=== PATIENT | female | born 1940 | race Caucasian/White ===

== ENCOUNTER 2018-07-08 10:51 | Inpatient (IN) ==
--- NOTE | 2018-07-08 12:51 | ED ---
HPI General Chief Complaint: Fall Stated Complaint: fall Time Seen by Provider: 07/08/18 12:39 History of Present Illness HPI Narrative: This is a 77-year-old female with severe Lewy body dementia. She had a fall at home. She has very poor balance and gait as baseline. She was attempting to transfer and lost her balance and fell onto her left leg. Her says that her left leg was bent up beneath her. She did not strike her head. Symptom severity is mild to moderate. She cannot provide any history or review of symptoms herself. She is nonverbal. Duration is 1 hour. No alleviating factors. Symptoms are exacerbated by her severe dementia and gait imbalance Related Data Home Medications Medication Instructions Recorded Confirmed cyanocobalamin (vitamin B-12) 1,000 mcg PO DAILY 07/08/18 07/08/18 memantine [Namenda] 2.5 mg PO BID 07/08/18 07/08/18 Allergies Allergy/AdvReac Type Severity Reaction Status Date / Time No Known Allergies Allergy Verified 07/08/18 12:45 Review of Systems ROS Unobtainable ROS Unobtainable: unobtainable due to mental condition and unobtainable due to mental status PMFSH Medical History Medical History Atrial fibrillation (Acute) Breast cancer (Acute) COPD (chronic obstructive pulmonary disease) (Acute) History of hysterectomy (Acute) Lewy body dementia (Acute) Pacemaker (Acute) Surgical History Surgical History History of cardiac radiofrequency ablation (Acute) Social History Social History Substance History: No History of Abuse Second Hand Smoke Exposure: Yes Smoking Status: Current some day smoker Tobacco Type: Cigarettes How Often Do You Have a Drink Containing Alcohol: Monthly or less Recent Travel in [facility] within the Last 8 Weeks: No Recent Out of Country Travel within the Last 8 Weeks: No Exam Narrative Exam Narrative: GENERAL: Well-nourished, well-developed patient in no apparent distress. SKIN: Focused skin assessment reveals no rash and nodules. Skin is Warm and dry. HEAD: Atraumatic. Normocephalic. EYES: Pupils equal and round. No scleral icterus. No injection or drainage. ENT: No nasal bleeding or discharge. Mucous membranes pink and moist. NECK: Trachea midline. No JVD. No midline tenderness CARDIOVASCULAR: Regular rate and rhythm. No murmur appreciated. RESPIRATORY: No accessory muscle use. Clear to auscultation. Breath sounds equal bilaterally. GASTROINTESTINAL: Abdomen soft, non-tender, nondistended. Hepatic and splenic margins not palpable. MUSCULOSKELETAL: No obvious deformities. No clubbing. No cyanosis. No edema. Seems to have decent range of motion of leg joints. No obvious long bone tenderness. NEUROLOGICAL: Awake and alert. No obvious cranial nerve deficits. Impossible to accurately gauge motor strength or sensation given her limited participation. She is nonverbal. PSYCHIATRIC: Appropriate mood and affect; insight and judgment poor. Course Initial Documented Vital Signs Temperature 97.5 F L 07/08/18 11:04 Respiratory Rate 16 07/08/18 11:04 Blood Pressure 106/57 L 07/08/18 11:04 Pulse Oximetry 95 07/08/18 11:04 Last Documented Vital Signs Temperature 97.5 F L 07/08/18 11:04 Respiratory Rate 18 07/08/18 12:50 Blood Pressure 106/57 L 07/08/18 11:04 Pulse Oximetry 95 07/08/18 11:04 Medical Decision Making MDM Narrative Medical decision making narrative: This is a 77-year-old severely demented patient who fell onto her left leg. I have ordered imaging of her pelvis femur and tibia. X-ray review reveals a fracture of the left hip. I have ordered preop labs and chest x-ray. I reviewed the case with Dr. Herrera will be a senior telecommunications consultant. I have discussed it with the hospitalist who will admit. Of note, the reports that the patient gets very agitated after any type of narcotic and requests that at this time she not get any. Medical Screen Exam Complete: Yes Emergency Medical Condition: Yes Medical Records Medical records reviewed: Yes I reviewed the patient's medical records. Imaging Data Attestation: I personally reviewed and interpreted this imaging study as follows : My impression: Patient has a comminuted left intertrochanteric hip fracture. Tib-fib x-ray is normal and pelvis intact. Has a right hip replacement Radiologist's impression: Femur X-Ray 07/08/18 12:45 CONCLUSION: Comminuted and mildly displaced and mildly angulated intertrochanteric and proximal shaft fracture of the left femur. Tibia/Fibula X-Ray 07/08/18 12:45 CONCLUSION: Left tibia and fibula appear intact. Pelvis X-Ray 07/08/18 12:46 CONCLUSION: No evidence of pelvic fracture. Discharge Plan Discharge Disposition Patient Disposition: 30 Still Patient Discharge Details Diagnosis: Closed fracture of left hip Physicians Team ED Provider: Oz Zafar Primary Care Provider: UNKNOWN, Rxs /Orders / Referrals /Forms Prescriptions: No Action memantine [Namenda] 5 mg Tablet 2.5 mg PO BID RF: 0 cyanocobalamin (vitamin B-12) 1,000 mcg Capsule 1,000 mcg PO DAILY RF: 0 Status ED Status: With Doctor
--- NOTE | 2018-07-08 13:54 | XR ---
EXAM DATE: 07/08/2018 1:41 PM EST AGE/SEX: 77 years / Female INDICATIONS: Fall. CLINICAL DATA: This is the patient's initial encounter. Patient reports that signs and symptoms have been present for 2 days and indicates a pain score of 10/10. MEDICAL/SURGICAL HISTORY: . Patient has Alzeimers/Parkinsons combination. Patient is contracte d and is wheelchair bound. She fell yesterday at home. . Right hip replacement. COMPARISON: [facility] [place] AP [place]V, 07/08[place]. . FINDINGS: There is a comminuted intertrochanteric and proximal shaft fracture of the proximal left femur with m ild medial angulation deformity. The fracture appears oblique and/or spiral. There is up to 1 cm of l ateral displacement. The femoral head is intact. Mild osteoarthritis. No subluxation. CONCLUSION: Comminuted and mildly displaced and mildly angulated intertrochanteric and proximal shaft fracture of the left femur. Electronically signed by: Sean Calderon MD 07/08/2018 1:53 PM EST
--- NOTE | 2018-07-08 13:56 | XR ---
EXAM DATE: 07/08/2018 1:44 PM EST AGE/SEX: 77 years / Female INDICATIONS: Fall. CLINICAL DATA: This is the patient's initial encounter. Patient reports that signs and symptoms have been present for 2 days and indicates a pain score of 10/10. MEDICAL/SURGICAL HISTORY: . Patient has Alzeimers/Parkinsons combination. Patient is contracte d and is wheelchair bound. She fell yesterday at home. . Right hip replacement. [place] [facility] [place]. . FINDINGS: Examination of the pelvis demonstrates no evidence of fracture or dislocation. Bony mineralization i s normal. There is no widening of the sacroiliac joints. No foreign body is identified. CONCLUSION: No evidence of pelvic fracture. Electronically signed by: Sean Calderon MD 07/08/2018 1:55 PM EST
--- NOTE | 2018-07-08 13:57 | XR ---
EXAM DATE: 07/08/2018 1:48 PM EST AGE/SEX: 77 years / Female INDICATIONS: Fall. CLINICAL DATA: This is the patient's initial encounter. Patient reports that signs and symptoms have been present for 2 days and indicates a pain score of 10/10. MEDICAL/SURGICAL HISTORY: . Patient has Alzeimers/Parkinsons combination. Patient is contracte d and is wheelchair bound. She fell yesterday at home. . Right hip replacement. COMPARISON: [facility], FEMUR LEFT 2V, 07/08/2018. . FINDINGS: Bony structures are intact and in normal alignment. Osseous density is normal. Soft tissues are unre markable. No radiopaque foreign bodies seen. CONCLUSION: Left tibia and fibula appear intact. Electronically signed by: Sean Calderon MD 07/08/2018 1:55 PM EST
[2018-07-08 15:06] LABS: Baso % (Auto) 0.3 % (0.0-2.0); Eos % (Auto) 0.1 % (0.0-4.0); Hematocrit 29.5 % (35.0-46.0); Hemoglobin 9.9 gm/dL (11.6-15.3); Lymph # (Auto) 1.7 th/mm3 (1.0-4.8); Lymph % (Auto) 11.1 % (9.0-44.0); Mean Corpuscular HGB Conc 33.6 % (32.0-36.0); Mean Corpuscular Hemoglobin 29.5 pg (27.0-34.0); Mean Platelet Volume 8.9 fL (7.0-11.0); Mono # (Auto) 2.2 th/mm3 (0.0-0.9); Mono % (Auto) 14.4 % (0.0-8.0); Neut # (Auto) 11.2 th/mm3 (1.8-7.7); Neut % (Auto) 74.1 % (16.0-70.0); Platelet Count 256 th/mm3 (150-450); Red Blood Count 3.36 mil/mm3 (4.00-5.30); Red Cell Distribution Width 14.8 % (11.6-17.2); White Blood Count 15.2 th/mm3 (4.0-11.0)
[2018-07-08] MEDS ORDERED: Bisacodyl 10 MG Supp RECTAL PRN (15:21)
--- NOTE | 2018-07-08 15:27 | XR ---
EXAM DATE: 07/08/2018 3:00 PM EST AGE/SEX: 77 years / Female INDICATIONS: Pre op chest. CLINICAL DATA: This is the patient's initial encounter. Patient reports that signs and symptoms have been present for 2 days and indicates a pain score of 10/10. MEDICAL/SURGICAL HISTORY: . Patient fell yesterday, has fracture to left hip. . Right hip repl acement COMPARISON: . FINDINGS: Mild, age indeterminate parenchymal opacities seen in the right upper lobe. Lungs otherwise appear cl ear. No pleural effusion demonstrated. No pneumothorax. Heart size within normal limits. Cardiac pacer is present. CONCLUSION: Mild right upper lobe opacification, probably scarring although a mild pneumonic infiltrate is not ex cludable. I don't have any pertinent priors. No other evidence of acute cardiopulmonary disease. Electronically signed by: Sean Calderon MD 07/08/2018 3:25 PM EST
--- NOTE | 2018-07-08 15:32 | P.HP ---
History of Present Illness Primary Care Physician: UNKNOWN Chief Complaint: fall History of Present Illness: This is a 77-year-old female with severe Lewy body dementia. She had a fall at home. She has very poor balance and gait as baseline. She was attempting to transfer and lost her balance and fell onto her left leg. Her says that her left leg was bent up beneath her. She did not strike her head. Symptom severity is mild to moderate. She cannot provide any history or review of symptoms herself. She is nonverbal. Duration is 1 hour. No alleviating factors. Symptoms are exacerbated by her severe dementia and gait imbalance. Inpatient Certification: I certify that the inpatient services were ordered in accordance with Medicare regulations governing the order. This includes certification that hospital inpatient services are reasonable and necessary and in the case of services not specified as inpatient-only under 42 CFR 419.22(n), that they are appropriately provided as inpatient services in accordance to with the 2-midnight benchmark under 43 CFR 412.3(e) Estimated Total Length of Stay (Days): 3 Plans for Post Hospital Care: SNF Review of Systems All other systems reviewed negative except as stated in HPI PMFSH - History History Provided By: Family Member - Medical History Medical History: Medical History (Last Reviewed 07/08/18 @ 15:30 by Sailaja Narayan MD) Atrial fibrillation Breast cancer COPD (chronic obstructive pulmonary disease) History of hysterectomy Lewy body dementia Pacemaker - Surgical History Surgical History: Surgical History (Last Reviewed 07/08/18 @ 15:30 by Sailaja Narayan MD) History of cardiac radiofrequency ablation - Family History Family History: Family History (Last Updated 07/08/18 @ 15:52 by Sailaja Narayan MD) Father HTN (hypertension) Mother HTN (hypertension) - Social History I have reviewed the patient's Social History: Yes - Tobacco History Second Hand Smoke Exposure: Yes Tobacco Use In Past 30 Days: Yes Smoking Status: Current some day smoker Tobacco Type: Cigarettes - Alcohol History How Often Do You Have a Drink Containing Alcohol: Monthly or less - Substance Use History Substance History: No History of Abuse - Travel History Recent Travel in the [place] Within the Last 8 Weeks: No Recent Travel Out of the Country Within the Last 8 Weeks: No - Immunization History Tetanus Immunization: >5 Years Medications and Allergies Active Medications: Active Medications Acetaminophen (Tylenol) 650 mg PO Q4H PRN PRN Reason: Temp > 100.4 Al Hydroxide/Mg Hydroxide (Milk Of Magnesia Liq) 30 ml PO Q12H PRN PRN Reason: Mild Constipation Bisacodyl (Dulcolax Supp) 10 mg RECTAL DAILY PRN PRN Reason: SEVERE CONSITIPATION Sodium Chloride (Ns Inj) 1,000 mls @ 70 mls/hr IV.CONT .[id number] HELEN Lactulose (Lactulose Liq) 30 ml PO DAILY PRN PRN Reason: SEVERE CONSITIPATION Ondansetron HCl (Zofran Inj) 4 mg IV.PUSH Q6H PRN PRN Reason: NAUSEA OR VOMITING Senna/Docusate Sodium (Alejandra-Colace) 1 tab PO BID HELEN Sennosides (Senokot) 17.2 mg PO Q12H PRN PRN Reason: Moderate Constipation Allergies Allergy/AdvReac Type Severity Reaction Status Date / Time No Known Allergies Allergy Verified 07/08/18 12:45 Home Medications Medication Instructions Recorded Confirmed Type cyanocobalamin (vitamin B-12) 1,000 mcg PO DAILY 07/08/18 07/08/18 History memantine [Namenda] 2.5 mg PO BID 07/08/18 07/08/18 History Exam Vital signs: Vital Signs 07/08/18 11:04 07/08/18 12:50 Temperature 97.5 F L Respiratory Rate 16 18 Blood Pressure 106/57 L Pulse Oximetry 95 Intake & Output 07/07/18 07/08/18 07/08/18 18:59 06:59 18:59 Weight 52.163 kg Narrative: GENERAL: 77-year-old severely demented patient appears in nad. SKIN: Warm and dry. HEAD: Atraumatic. Normocephalic. EYES: Pupils equal and round. No scleral icterus. No injection or drainage. ENT: No nasal bleeding or discharge. Mucous membranes pink and moist. NECK: Trachea midline. No JVD. CARDIOVASCULAR: Regular rate and rhythm. RESPIRATORY: No accessory muscle use. Clear to auscultation. Breath sounds equal bilaterally. GASTROINTESTINAL: Abdomen soft, non-tender, nondistended. Hepatic and splenic margins not palpable. MUSCULOSKELETAL: Extremities without clubbing, cyanosis, or edema. No obvious deformities. NEUROLOGICAL: Awake and alert. No obvious cranial nerve deficits. Not following commands due to severe dementia. She is nonverbal. At baseline. PSYCHIATRIC: Appropriate mood and affect; insight and judgment normal. Results - Labs CBC & Chem 7: 07/08/18 14:37 07/08/18 15:33 Labs: Laboratory Results - last 24 hr 07/08/18 14:37 WBC 15.2 H RBC 3.36 L Hgb 9.9 L Hct 29.5 L MCV 88.0 MCH 29.5 MCHC 33.6 RDW 14.8 Plt Count 256 MPV 8.9 Prelim Diff (Auto) Slide review pending Neut % (Auto) 74.1 H Lymph % (Auto) 11.1 [place] % (Auto) 14.4 H Eos % (Auto) 0.1 Baso % (Auto) 0.3 Neut # (Auto) 11.2 H Lymph # (Auto) 1.7 [place] # (Auto) 2.2 H Eos # (Auto) 0.0 Baso # (Auto) 0.0 Differential Comment . - Imaging Impressions Femur X-Ray 07/08/18 12:45 CONCLUSION: Comminuted and mildly displaced and mildly angulated intertrochanteric and proximal shaft fracture of the left femur. Tibia/Fibula X-Ray 07/08/18 12:45 CONCLUSION: Left tibia and fibula appear intact. Pelvis X-Ray 07/08/18 12:46 CONCLUSION: No evidence of pelvic fracture. Caprini VTE Risk Assessment Caprini VTE Risk Assessment: Moderate/High Risk (score >= 2) Caprini Risk Assessment Model: Point Value = 1 Point Value = 2 Point Value = 3 Point Value = 5 Age 41-60 Minor surgery BMI > 25 kg/m2 Swollen legs Varicose veins or History of unexplained or recurrent spontaneous Oral contraceptives or hormone replacement Sepsis (< 1 month) Serious lung disease, including pneumonia (< 1 month) Abnormal pulmonary function Acute myocardial infarction Congestive heart failure (< 1 month) History of inflammatory bowel disease Medical patient at bed rest Age 61-74 Arthroscopic surgery Major open surgery (> 45 min) Laparoscopic surgery (> 45 min) Malignancy Confined to bed (> 72 hours) Immobilizing plaster cast Central venous access Age >= 75 History of VTE Family history of VTE Factor V Leiden Prothrombin [id number] Lupus anticoagulant Anticardiolipin antibodies Elevated serum homocysteine Heparin-induced thrombocytopenia Other congenital or acquired thrombophilia Stroke (< 1 month) Elective arthroplasty Hip, pelvis, or leg fracture Acute spinal cord injury (< 1 month) Prophylaxis Regimen: Total Risk Factor Score Risk Level Prophylaxis Regimen 0-1 Low Early ambulation 2 Moderate Order ONE of the following: *Sequential Compression Device (SCD) *Heparin 5000 units SQ BID 3-4 Higher Order ONE of the following medications: *Heparin 5000 units SQ TID *Enoxaparin/Lovenox 40 mg SQ daily (WT < 150 kg, CrCl > 30 mL/min) *Enoxaparin/Lovenox 30 mg SQ daily (WT < 150 kg, CrCl > 10-29 mL/min) *Enoxaparin/Lovenox 30 mg SQ BID (WT < 150 kg, CrCl > 30 mL/min) AND/OR *Sequential Compression Device (SCD) 5 or more Highest Order ONE of the following medications: *Heparin 5000 units SQ TID (Preferred with Epidurals) *Enoxaparin/Lovenox 40 mg SQ daily (WT < 150 kg, CrCl > 30 mL/min) *Enoxaparin/Lovenox 30 mg SQ daily (WT < 150 kg, CrCl > 10-29 mL/min) *Enoxaparin/Lovenox 30 mg SQ BID (WT < 150 kg, CrCl > 30 mL/min) AND *Sequential Compression Device (SCD) Assessment and Plan - Plan This is a 77-year-old severely demented patient who fell onto her left leg. Patient has a comminuted left intertrochanteric hip fracture. Tib-fib x-ray is normal and pelvis intact. Has a right hip replacement Ortho consulted, Dr. Herrera plan for surgery in AM , keep NPO after midnight Of note, the reports that the patient gets very agitated after any type of narcotic and requests that at this time she not get any. Left hip closed fracture Imaging reviewed. Comminuted left intertrochanteric hip fracture. Tib-fib x- ray is normal and pelvis intact. Has a right hip replacement Ortho consulted, Dr. Herrera plans for surgery in AM , keep NPO after midnight Tylenol for pain as per patient gets agitated with narcotic use Afib had ablation and has a PM. Will check PM as per needs to be checked in Nov Restart home emds as appropriate Chronic med problems stable DVT ppx scd/teds , chemical ppx per surgeon Discussed Condition With: patient. nurse, ED physicin Dr Zafar
[2018-07-08] MEDS: Sod Chloride 0.9% Inj 1,000 ML IV.CONT SCH (15:48)
[2018-07-08 15:54] LABS: Platelet Estimate Normal (Normal); Platelet Morphology Normal (Normal)
[2018-07-08 16:00] LABS: Activated Partial Thrombo Time 28.4 sec (23.4-31.7); INR 1.1 Ratio; Prothrombin Time 10.8 sec (9.8-11.6)
[2018-07-08 16:08] LABS: Calcium 8.1 mg/dL (8.5-10.1); Carbon Dioxide 24.5 meq/L (21.0-32.0); Potassium 4.1 meq/L (3.5-5.1)
--- NOTE | 2018-07-08 16:50 | P.CONOP ---
[facility] Orthopedics Consult Note - [facility] Consult date: 07/08/18 Consult reason: fracture Chief complaint: left hip fracture Narrative: 77-year-old female with severe Lewy body dementia. She had a fall at home. She has very poor balance and gait at baseline. She was attempting to transfer and lost her balance and fell onto her left leg. Her says that her left leg was bent up beneath her. She did not strike her head. Symptom severity is mild to moderate. She cannot provide any history or review of symptoms herself. She is nonverbal. Duration is 1 hour. No alleviating factors. Symptoms are exacerbated by her severe dementia and gait imbalance. Review of Systems unobtainable due to mental status PMFSH - History History Provided By: Family Member - Medical History Medical History: Medical History (Last Reviewed 07/08/18 @ 15:30 by Sailaja Narayan MD) Atrial fibrillation Breast cancer COPD (chronic obstructive pulmonary disease) History of hysterectomy Lewy body dementia Pacemaker - Surgical History Surgical History: Surgical History (Last Reviewed 07/08/18 @ 15:30 by Sailaja Narayan MD) History of cardiac radiofrequency ablation - Family History Family History: Family History (Last Updated 07/08/18 @ 15:52 by Sailaja Narayan MD) Father HTN (hypertension) Mother HTN (hypertension) - Tobacco History Second Hand Smoke Exposure: Yes Tobacco Use In Past 30 Days: Yes Smoking Status: Current some day smoker Tobacco Type: Cigarettes - Alcohol History How Often Do You Have a Drink Containing Alcohol: Monthly or less - Substance Use History Substance History: No History of Abuse - Travel History Recent Travel in the [place] Within the Last 8 Weeks: No Recent Travel Out of the Country Within the Last 8 Weeks: No - Immunization History Tetanus Immunization: >5 Years Medications and Allergies Active Medications: Active Medications Acetaminophen (Tylenol) 650 mg PO Q4H PRN PRN Reason: Temp > 100.4 Al Hydroxide/Mg Hydroxide (Milk Of Magnesia Liq) 30 ml PO Q12H PRN PRN Reason: Mild Constipation Bisacodyl (Dulcolax Supp) 10 mg RECTAL DAILY PRN PRN Reason: SEVERE CONSITIPATION Cyanocobalamin (Vitamin B12) 1,000 mcg PO DAILY HELEN Sodium Chloride (Ns Inj) 1,000 mls @ 70 mls/hr IV.CONT .[id number] [facility] Last Admin: 07/08/18 15:48 Dose: 70 mls/hr Lactulose (Lactulose Liq) 30 ml PO DAILY PRN PRN Reason: SEVERE CONSITIPATION Memantine (Namenda) 2.5 mg PO BID HELEN Ondansetron HCl (Zofran Inj) 4 mg IV.PUSH Q6H PRN PRN Reason: NAUSEA OR VOMITING Senna/Docusate Sodium (Alejandra-Colace) 1 tab PO BID HELEN Sennosides (Senokot) 17.2 mg PO Q12H PRN PRN Reason: Moderate Constipation Allergies Allergy/AdvReac Type Severity Reaction Status Date / Time No Known Allergies Allergy Verified 07/08/18 12:45 Home Medications Medication Instructions Recorded Confirmed Type cyanocobalamin (vitamin B-12) 1,000 mcg PO DAILY 07/08/18 07/08/18 History memantine [Namenda] 2.5 mg PO BID 07/08/18 07/08/18 History Exam Vital signs: Vital Signs 07/08/18 11:04 07/08/18 12:50 07/08/18 15:00 Temperature 97.5 F L Pulse Rate 91 H 85 Respiratory Rate 16 18 18 Blood Pressure 106/57 L 130/60 Pulse Oximetry 95 97 98 Intake & Output 07/07/18 07/08/18 07/08/18 18:59 06:59 18:59 Weight 52.163 kg Narrative: Awake, alert, nonverbal at baseline Normocephalic Pupils equal No JVD Moist mucous membranes Soft nontender appearing abdomen Nonlabored respirations Regular rate Left lower extremity: Positive logroll. Unable to assess hip and knee range of motion due to pain. Possible left knee contracture. Patient does not participate with physical exam but does appear to spontaneously move her lower extremities. Bilateral upper extremities and right lower extremity: No visible deformities or appreciable tenderness. Patient allows gentle passive range of motion. Brisk cap refill No rash Nonverbal baseline Results - Labs Result Diagrams: 07/09/18 05:21 07/09/18 05:21 Labs: Laboratory Results - last 24 hr 07/08/18 07/08/18 07/08/18 14:37 15:33 15:33 WBC 15.2 H RBC 3.36 L Hgb 9.9 L Hct 29.5 L MCV 88.0 MCH 29.5 MCHC 33.6 RDW 14.8 Plt Count 256 MPV 8.9 Prelim Diff (Auto) Slide review pending Neut % (Auto) 74.1 H Lymph % (Auto) 11.1 [place] % (Auto) 14.4 H Eos % (Auto) 0.1 Baso % (Auto) 0.3 Neut # (Auto) 11.2 H Lymph # (Auto) 1.7 [place] # (Auto) 2.2 H Eos # (Auto) 0.0 Baso # (Auto) 0.0 WBC Differential . Diff Scan Auto diff confirmed Differential Comment . Platelet Estimate Normal Platelet Morphology Normal PT 10.8 INR 1.1 APTT 28.4 Sodium 143 Potassium 4.1 Chloride 107 Carbon Dioxide 24.5 Anion Gap 12 BUN 43 H Creatinine 1.82 H Estimated GFR 27 L Random Glucose 125 H Calcium 8.1 L - Diagnostic results Imaging: Impressions Femur X-Ray 07/08/18 12:45 CONCLUSION: Comminuted and mildly displaced and mildly angulated intertrochanteric and proximal shaft fracture of the left femur. Tibia/Fibula X-Ray 07/08/18 12:45 CONCLUSION: Left tibia and fibula appear intact. Pelvis X-Ray 07/08/18 12:46 CONCLUSION: No evidence of pelvic fracture. Chest X-Ray 07/08/18 14:09 CONCLUSION: Mild right upper lobe opacification, probably scarring although a mild pneumonic infiltrate is not excludable. I don't have any pertinent priors. No other evidence of acute cardiopulmonary disease. Assessment and Plan - Assessment and Plan 77yo F with h/o Lewy body dementia and nonverbal at baseline, with closed left intertrochanteric femur fracture Radiographs reviewed by myself. Patient with closed left intertrochanteric femur fracture. Would recommend operative intervention in the form of intramedullary nail of the left femur. Risks including but not limited to: infection, nonunion or malunion, hardware malposition or failure, persistent hip pain and/or stiffness, neurovascular injury, possible need for further surgery, and other unforeseen complications. Patient has been NPO at midnight with plan for surgery today.
[2018-07-08] MEDS ORDERED: Metoprolol Tartrate 25 MG Tablet PO SCH (21:41)
[2018-07-08] MEDS ORDERED: Chlorhexidine Gluconate 2% 1 Pack (2 Cloths) TOPICAL SCH (21:41)
[2018-07-08] MEDS ORDERED: Sodium Chlor 0.9% Inj 500 ML IV.SIG SCH (22:00)
[2018-07-08] MEDS: Senna/Docusate Sodium 8.6/50 MG Tablet PO SCH (23:05)
[2018-07-09 06:18] LABS: Baso # (Auto) 0.1 th/mm3 (0.0-0.2); Baso % (Auto) 0.5 % (0.0-2.0); Hematocrit 25.9 % (35.0-46.0); Lymph # (Auto) 1.2 th/mm3 (1.0-4.8); Lymph % (Auto) 10.6 % (9.0-44.0); Mean Corpuscular HGB Conc 34.8 % (32.0-36.0); Mean Corpuscular Hemoglobin 29.9 pg (27.0-34.0); Mean Corpuscular Volume 85.7 fL (80.0-100.0); Mean Platelet Volume 9.2 fL (7.0-11.0); Mono # (Auto) 1.4 th/mm3 (0.0-0.9); Mono % (Auto) 12.4 % (0.0-8.0); Neut # (Auto) 8.3 th/mm3 (1.8-7.7); Neut % (Auto) 76.5 % (16.0-70.0); Platelet Count 230 th/mm3 (150-450); Red Blood Count 3.02 mil/mm3 (4.00-5.30); Red Cell Distribution Width 14.1 % (11.6-17.2); White Blood Count 10.9 th/mm3 (4.0-11.0)
[2018-07-09 06:43] LABS: Carbon Dioxide 26.1 meq/L (21.0-32.0); Potassium 4.1 meq/L (3.5-5.1)
--- NOTE | 2018-07-09 07:10 | ECG ---
Date Performed: 07/08/2018 Time Performed: 21:59:47 PTAGE: 77 years EKG: ELECTRONIC ATRIAL PACEMAKER MINIMAL ST DEPRESSION ABNORMAL RHYTHM ECG NO PREVIOUS TRACING DOCTOR: Jamie Wilburn Interpretating Date/Time 07/09/2018 07:08:45
[2018-07-09] MEDS: Sod Chloride 0.9% Inj 1,000 ML IV.CONT SCH (08:23)
--- NOTE | 2018-07-09 08:43 | P.PNIM ---
Subjective Interval history: Follow-up visit left femur fracture, plan for OR today. Patient seen and examined today. Family member at the bedside. Patient is awake and alert, nonverbal. Moves bilateral upper extremities spontaneously, left knee bended/ contracted?. Facial grimacing to tactile stimulation. As per family member, patient has Lewy body dementia and usually does not really respond to other people. Physical Exam Vital signs: Vital Signs 07/08/18 11:04 07/08/18 12:50 07/08/18 15:00 Temperature 97.5 F L Pulse Rate 91 H 85 Respiratory Rate 16 18 18 Blood Pressure 106/57 L 130/60 Pulse Oximetry 95 97 98 07/08/18 16:35 07/08/18 20:00 07/08/18 23:39 Temperature 98.3 F 98.2 F 98.3 F Pulse Rate 78 86 88 Respiratory Rate 16 20 22 Blood Pressure 147/64 H 115/65 132/62 Pulse Oximetry 99 95 96 07/09/18 01:30 07/09/18 04:05 Temperature 98.9 F Pulse Rate 85 Respiratory Rate 17 18 Blood Pressure 93/54 L Pulse Oximetry 95 Intake & Output 07/08/18 07/09/18 07/09/18 18:59 06:59 18:59 Intake Total 1050 / 1050 Output Total 375 / 375 Balance 675 / 675 Weight 52.6 kg 51.7 kg Intake: IV 1000 / 1000 NS Inj 1,000 ML @ 70 mls/hr IV. 1000 / 1000 CONT .[id number] [facility] Rx#:[id number] Oral 50 / 50 Output: Urine Amount (Catheter) 375 / 375 Indwelling Urethral Catheter 375 / 375 Other: Weight On Admission 52.6 kg Narrative: GENERAL: This is a well-nourished, well-developed patient, in no apparent distress. SKIN: Warm and dry. HEENT: Normocephalic. Nose without bleeding. Airway patent. NECK: Trachea midline. CARDIOVASCULAR: Regular rate and rhythm without murmurs, gallops, or rubs. RESPIRATORY: Diminished bases. No wheezes, rales, or rhonchi. GASTROINTESTINAL: Abdomen soft, non-tender, nondistended. Bowel Sounds normoactive x4. MUSCULOSKELETAL: Extremities without clubbing, cyanosis, or edema. Left knee bended, ? contracture. NEUROLOGICAL: Awake and alert. Nonverbal. Moves bilateral upper extremities spontaneously. - Urinary Catheter Management Indwelling Urethral Catheter Cath placed during this visit: yes Reason for continuing: Acute urinary retention Insertion date: 07/08/18 Insertion time: 15:58 Results - Labs CBC & Chem 7: 07/09/18 05:21 07/09/18 05:21 Laboratory Results - last 24 hr 07/08/18 07/08/18 07/08/18 14:37 15:33 15:33 WBC 15.2 H RBC 3.36 L Hgb 9.9 L Hct 29.5 L MCV 88.0 MCH 29.5 MCHC 33.6 RDW 14.8 Plt Count 256 MPV 8.9 Prelim Diff (Auto) Slide review pending Neut % (Auto) 74.1 H Lymph % (Auto) 11.1 Wagoner % (Auto) 14.4 H Eos % (Auto) 0.1 Baso % (Auto) 0.3 Neut # (Auto) 11.2 H Lymph # (Auto) 1.7 Wagoner # (Auto) 2.2 H Eos # (Auto) 0.0 Baso # (Auto) 0.0 WBC Differential . Diff Scan Auto diff confirmed Differential Comment . Platelet Estimate Normal Platelet Morphology Normal PT 10.8 INR 1.1 APTT 28.4 Sodium 143 Potassium 4.1 Chloride 107 Carbon Dioxide 24.5 Anion Gap 12 BUN 43 H Creatinine 1.82 H Estimated GFR 27 L Random Glucose 125 H Calcium 8.1 L 07/09/18 07/09/18 05:21 05:21 WBC 10.9 RBC 3.02 L Hgb 9.0 L Hct 25.9 L MCV 85.7 MCH 29.9 MCHC 34.8 RDW 14.1 Plt Count 230 MPV 9.2 Prelim Diff (Auto) Neut % (Auto) 76.5 H Lymph % (Auto) 10.6 Wagoner % (Auto) 12.4 H Eos % (Auto) 0.0 Baso % (Auto) 0.5 Neut # (Auto) 8.3 H Lymph # (Auto) 1.2 Wagoner # (Auto) 1.4 H Eos # (Auto) 0.0 Baso # (Auto) 0.1 WBC Differential . Diff Scan Differential Comment Auto diff final Platelet Estimate Platelet Morphology PT INR APTT Sodium 146 H Potassium 4.1 Chloride 112 H Carbon Dioxide 26.1 Anion Gap 8 BUN 42 H Creatinine 1.20 H Estimated GFR 43 L Random Glucose 116 H Calcium 8.0 L - Imaging Impressions Femur X-Ray 07/08/18 12:45 CONCLUSION: Comminuted and mildly displaced and mildly angulated intertrochanteric and proximal shaft fracture of the left femur. Tibia/Fibula X-Ray 07/08/18 12:45 CONCLUSION: Left tibia and fibula appear intact. Pelvis X-Ray 07/08/18 12:46 CONCLUSION: No evidence of pelvic fracture. Chest X-Ray 07/08/18 14:09 CONCLUSION: Mild right upper lobe opacification, probably scarring although a mild pneumonic infiltrate is not excludable. I don't have any pertinent priors. No other evidence of acute cardiopulmonary disease. Assessment and Plan - Plan Patient is a 77-year-old female with Lewy body dementia status post fall at home. Status post fall Left femur fracture -comminuted left intertrochanteric hip fracture. Tib-fib x-ray is normal and pelvis intact. Has a right hip replacement -Orthopedic surgeon consulted, Dr. Herrera plan for surgery today. -Tylenol for pain -PT post op. Possible rehab placement Afib had ablation, PPM -per needs to be checked in Nov Lewy body dementia -Continue with vitamin B12, Namenda 2.5 twice daily DVT Prop per surgery post op Code Status: Full Code Discussed Condition With: Patient, , nursing Discharge Planning: Plan to DC to SNF/Rehab when cleared by Ortho.
[2018-07-09] MEDS: Senna/Docusate Sodium 8.6/50 MG Tablet PO SCH ×2 (09:23→20:05)
[2018-07-09] MEDS ORDERED: Lidocaine PF 1% Inj 5 ML Syringe OTHER ONE (10:26)
[2018-07-09] MEDS ORDERED: Phenylephrine/NS 1000 MCG/10ML Syringe IV.PUSH ONE (10:26)
[2018-07-09] MEDS ORDERED: ceFAZolin 1 GM Premix Inj 1 GM/50 ML FROZ.PIGGY IV.SIG ONE (10:37)
[2018-07-09] MEDS ORDERED: Bupivacaine/Epinephrine 0.5% Inj 50 ML Vial ONE (11:38)
[2018-07-09] MEDS ORDERED: Post-op Orders (for Pharmacy) OTHER STA (11:42)
--- NOTE | 2018-07-09 11:49 | P.OP ---
Date of procedure: 07/09/18 Procedure: Intramedullary nail left subtrochanteric femur fracture Implants: Synthes TFN 12 mm diameter nail Anesthesia: REBECCA Surgeon: Lindsey Herrera MD Form Setter Helper: Damian Brody Estimated blood loss (mL): 100 Pathology: none sent Operation and Findings: Indications for procedure: 77-year-old female who sustained a trip and fall and sustained a closed left peritrochanteric/subtrochanteric femur fracture. Recommendation for operative intervention in the form of intramedullary nail of her left femur. Risks, benefits, alternatives were discussed with the patient and her . At this time the patient and her have both consented to this procedure. Form Setter Helper: Damian Brody PA-C The surgical procedure was assisted by physician surgery assistant. My P.A. presence was necessary throughout this case for the manipulation and positioning of the surgical extremity. My P.A. was assisting me throughout the duration of this procedure. The skill set of a physician surgery assistant was medically necessary to complete this procedure. During the surgical case the surgical services asst was working at the back table and the physician surgery assistant was directly assisting me. Description of procedure: Patient was brought back to the operating room where general anesthesia then ensued. Patient was then carefully positioned supine on the operating room fracture table with all bony promises well-padded. Patient was prepped and draped in standard sterile fashion. Preoperative antibiotics were given within 1 hour of incision. A timeout was performed to identify the correct patient, side, site and procedure to be performed. The fracture was reduced with the use of the table through traction and rotation. A small approximately 1-2 inch incision was made just proximal and posterior to the tip of the greater trochanter. Sharp dissection was made through the skin, subcutaneous tissue and fascia. A guidewire was placed into the tip of the greater troches on AP and lateral radiographs and advanced to the lesser trochanteric region. An opening reamer was then placed over this guidewire and advanced to the lesser trochanteric region to allow access to the femoral canal. A ball-tipped guidewire was then placed into the tip of the greater trochanter past the fracture site and into the distal femur. This was subsequently measured and up reamed to 13.5 mm. A 12.5 mm TFN nail was then placed over the ball-tipped guidewire and advanced past the fracture site into the distal femur. This was advanced into appropriate position on AP and lateral radiographs. The ball-tipped guidewire was then removed. A small incision was then made around the proximal aspect of the lateral femur to allow the triple sleeve to be placed down for the proximal locking blade. Sharp dissection was made through the skin, subcutaneous tissue and fascia. The guide sleeves were placed down to the lateral cortex and a guidewire was placed into the femoral neck and into the femoral head in a center center position. This was subsequently measured, drilled and an appropriate length locking blade placed. The proximal locking screw was tightened down and backed off a quarter of a turn to allow for appropriate compression. 2 distal locking screws were then placed with the use of perfect lumbee technique. Small incisions were made through the skin, subcutaneous tissue and fascia. These were then drilled, measured and appropriately length locking screws placed. The insertion handle was removed. Final radiographs demonstrate the fracture was appropriately reduced and hardware in good position. The incisions were then irrigated with normal saline laden with gentamicin. The deep tissue was closed with Vicryl sutures and the skin closed with keeley. Sterile dressings were applied. Patient was then carefully positioned back supine on her hospital bed. Patient was awoken from general anesthesia without complication. Disposition: Patient will be partial weightbearing 50% to the left lower extremity.
--- NOTE | 2018-07-09 15:04 | XR ---
EXAM DATE: 07/09/2018 3:02 PM EST AGE/SEX: 77 years / Female INDICATIONS: Left troch nail. CLINICAL DATA: This is the patient's initial encounter. Patient reports that signs and symptoms have been present for 1 day and indicates a pain score of Nonresponsive. MEDICAL/SURGICAL HISTORY: Non-responsive. Non-responsive. [place] [facility] [place]. . FINDINGS: There is maya fixation of the left femur across an intratrochanteric fracture. Near-anatomic alignment . No complications identified. CONCLUSION: Fixation left intertrochanteric fracture. Electronically signed by: Contreras Lee MD 07/09/2018 3:03 PM EST
[2018-07-09] MEDS: ceFAZolin 1 GM Premix Inj 1 GM/50 ML FROZ.PIGGY IV.SIG SCH (17:43)
[2018-07-10] MEDS: ceFAZolin 1 GM Premix Inj 1 GM/50 ML FROZ.PIGGY IV.SIG SCH ×3 (02:31→18:01)
--- NOTE | 2018-07-10 06:49 | P.PNOP ---
Subjective Interval history: Patient resting comfortably. Physical Exam Vital signs: Vital Signs 07/09/18 08:00 07/09/18 12:00 07/09/18 12:15 Temperature 98.3 F 97.5 F L Pulse Rate 94 H 84 82 Respiratory Rate 17 16 16 Blood Pressure 148/54 H 123/60 127/60 Pulse Oximetry 93 L 96 94 L 07/09/18 12:30 07/09/18 12:45 07/09/18 14:00 Temperature 97.3 F L Pulse Rate 82 82 84 Respiratory Rate 16 16 16 Blood Pressure 122/58 L 121/58 L 110/53 L Pulse Oximetry 94 L 94 L 95 07/09/18 16:00 07/09/18 19:12 07/09/18 23:53 Temperature 97.9 F 98.9 F 99.2 F Pulse Rate 85 86 89 Respiratory Rate 18 21 20 Blood Pressure 145/60 H 153/76 H 103/53 L Pulse Oximetry 96 96 95 07/10/18 03:39 Temperature 99.5 F Pulse Rate 85 Respiratory Rate 20 Blood Pressure 99/50 L Pulse Oximetry 99 Intake & Output 07/09/18 07/09/18 07/10/18 06:59 18:59 06:59 Intake Total 1050 / 1050 2620 / 2620 50 / 50 Output Total 375 / 375 350 / 350 250 / 250 Balance 675 / 675 2270 / 2270 -200 / -200 Weight 51.7 kg 53.7 kg Intake: IV 1000 / 1000 1600 / 1600 NS Inj 1,000 ML @ 70 mls/hr IV. 1000 / 1000 CONT .[id number] [facility] Rx#:[id number] LR 1000 mL Inj 1,000 ML @ 30 1000 / 1000 mls/hr IV.SIG .Q24H [facility] Rx#: [id number] NS Inj 500 ML @ 30 mls/hr IV. 500 / 500 SIG .Q10H [facility] Rx#:[id number] Ancef 1 GM Premix Inj 1 gm In 100 / 100 50 ml @ 100 mls/hr IV.SIG Q8H [facility] Rx#:[id number] Oral 50 / 50 120 / 120 50 / 50 Anesthesia Amount 650 / 650 Other 250 / 250 Output: Urine 100 / 100 Estimated Blood Loss 100 / 100 Urine Amount (Catheter) 375 / 375 150 / 150 250 / 250 Indwelling Urethral Catheter 375 / 375 150 / 150 250 / 250 Other: Other Intake Source Saline Solution Narrative: Sleeping but arousable. Left lower extremity: Dressings in place without significant drainage. Patient appears to be spontaneously moving although not cooperative with exam this morning. Brisk cap refill. Negative Homans. - Urinary Catheter Management Indwelling Urethral Catheter Cath placed during this visit: yes Reason for continuing: Acute urinary retention Insertion date: 07/08/18 Insertion time: 15:58 Results - Labs CBC & Chem 7: 07/09/18 05:21 07/09/18 05:21 Laboratory Results - last 24 hr 07/09/18 12:41 POC Glucose 130 H - Imaging Impressions Hip X-Ray 07/09/18 00:00 CONCLUSION: Fixation left intertrochanteric fracture. Assessment and Plan - Assessment and Plan 77yo F with h/o Lewy body dementia and nonverbal at baseline, with closed left subtrochanteric femur fracture, postop day 1 status post intramedullary nail of her left subtrochanteric femur fracture 1. PWB 50% LLE 2. PT for mobilization 3. Dressing changes to start POD#2 4. Patient will likely require rehab placement. May follow-up in my office in 2 weeks 5. Lovenox for DVT ppx while inpatient. May switch to Xarelto upon discharge for 3 weeks.
[2018-07-10] MEDS: Sod Chloride 0.9% Inj 1,000 ML IV.CONT SCH ×4 (08:40→22:41)
[2018-07-10] MEDS: Senna/Docusate Sodium 8.6/50 MG Tablet PO SCH ×2 (08:55→21:25)
[2018-07-10] MEDS: Acetaminophen 325 MG Tablet PO PRN (08:55)
[2018-07-10] MEDS: Enoxaparin Inj 40 MG/0.4 ML Syringe SQ SCH (08:57)
--- NOTE | 2018-07-10 12:38 | P.PNIM ---
Subjective Interval history: Follow-up visit left femur fracture, S/P Intramedullary nail left subtrochanteric femur fracture, Lewy body dementia. Patient seen and examined today. at the bedside. Patient is drowsy, arousable to tactile stimulation. Not been eating or drinking due to increase sleepiness as per . Possible post op anaesthesia effect. As per nursing, physical therapy has seen the patient but unable to do much because patient has been drowsy. We will continue to encourage increase in activity. This is been discussed with extensively. Physical Exam Vital signs: Vital Signs 07/09/18 12:45 07/09/18 14:00 07/09/18 16:00 Temperature 97.3 F L 97.9 F Pulse Rate 82 84 85 Respiratory Rate 16 16 18 Blood Pressure 121/58 L 110/53 L 145/60 H Pulse Oximetry 94 L 95 96 07/09/18 19:12 07/09/18 23:53 07/10/18 00:00 Temperature 98.9 F 99.2 F Pulse Rate 86 89 Respiratory Rate 21 20 17 Blood Pressure 153/76 H 103/53 L Pulse Oximetry 96 95 07/10/18 03:39 07/10/18 08:00 Temperature 99.5 F 99.3 F Pulse Rate 85 84 Respiratory Rate 20 18 Blood Pressure 99/50 L 103/75 Pulse Oximetry 99 91 L Intake & Output 07/09/18 07/10/18 07/10/18 18:59 06:59 18:59 Intake Total 2620 / 2620 1100 / 1100 1000 / 1000 Output Total 350 / 350 250 / 250 Balance 2270 / 2270 850 / 850 1000 / 1000 Weight 53.7 kg Intake: IV 1600 / 1600 1050 / 1050 1000 / 1000 NS Inj 1,000 ML @ 70 mls/hr IV. 1000 / 1000 1000 / 1000 CONT .[id number] [facility] Rx#:[id number] LR 1000 mL Inj 1,000 ML @ 30 1000 / 1000 mls/hr IV.SIG .Q24H [facility] Rx#: [id number] NS Inj 500 ML @ 30 mls/hr IV. 500 / 500 SIG .Q10H [facility] Rx#:[id number] Ancef 1 GM Premix Inj 1 gm In 100 / 100 50 / 50 50 ml @ 100 mls/hr IV.SIG Q8H [facility] Rx#:[id number] Oral 120 / 120 50 / 50 Anesthesia Amount 650 / 650 Other 250 / 250 Output: Urine 100 / 100 Estimated Blood Loss 100 / 100 Urine Amount (Catheter) 150 / 150 250 / 250 Indwelling Urethral Catheter 150 / 150 250 / 250 Other: Other Intake Source Saline Solution Date of Last Bowel Movement 07/09/18 Narrative: GENERAL: This is a thin appearing, elderly female, in no apparent distress. SKIN: Warm and dry. HEENT: Normocephalic. Nose without bleeding. Airway patent. NECK: Trachea midline. CARDIOVASCULAR: Regular rate and rhythm without murmurs, gallops, or rubs. RESPIRATORY: Diminished bases. No wheezes, rales, or rhonchi. GASTROINTESTINAL: Abdomen soft, non-tender, nondistended. Bowel Sounds normoactive x4. Gaming catheter draining yellow urine MUSCULOSKELETAL: Extremities without clubbing, cyanosis. Left lower extremity trace edema. Incision site left hip area dressing clean dry and intact. NEUROLOGICAL: Drowsy arousable to tactile stimuli. Nonverbal. - Urinary Catheter Management Indwelling Urethral Catheter Cath placed during this visit: yes Reason for continuing: Acute urinary retention Insertion date: 07/08/18 Insertion time: 15:58 Results - Labs CBC & Chem 7: 07/09/18 05:21 07/09/18 05:21 Laboratory Results - last 24 hr 07/09/18 12:41 POC Glucose 130 H - Imaging Impressions Hip X-Ray 07/09/18 00:00 CONCLUSION: Fixation left intertrochanteric fracture. Assessment and Plan - Plan Patient is a 77-year-old female with Lewy body dementia status post fall at home. S/P Intramedullary nail left subtrochanteric femur fracture, Dr. Herrera 07/09/18 Status post fall Left femur fracture -comminuted left intertrochanteric hip fracture. Tib-fib x-ray is normal and pelvis intact. Has a right hip replacement -Follow up with Dr. Herrera plan in 2 weeks -Tylenol for pain. No narcotics -PT post op. Rehab placement -Drowsy. Follow labs. Afib had ablation, PPM -per needs to be checked in Nov Lewy body dementia -Continue with vitamin B12, Namenda 2.5 twice daily DVT Prop Lovenox Code Status: Full code Discussed Condition With: , nurse Discharge Planning: Plan to DC to SNF/Rehab when cleared by Ortho.
[2018-07-11] MEDS: Sod Chloride 0.9% Inj 1,000 ML IV.CONT SCH (00:20)
[2018-07-11] MEDS: ceFAZolin 1 GM Premix Inj 1 GM/50 ML FROZ.PIGGY IV.SIG SCH ×3 (01:53→18:01)
[2018-07-11 05:38] LABS: Baso # (Auto) 0.1 th/mm3 (0.0-0.2); Baso % (Auto) 0.5 % (0.0-2.0); Hematocrit 22.2 % (35.0-46.0); Hemoglobin 7.4 gm/dL (11.6-15.3); Lymph # (Auto) 1.7 th/mm3 (1.0-4.8); Mean Corpuscular HGB Conc 33.4 % (32.0-36.0); Mean Corpuscular Hemoglobin 29.3 pg (27.0-34.0); Mean Corpuscular Volume 87.5 fL (80.0-100.0); Mean Platelet Volume 9.1 fL (7.0-11.0); Mono # (Auto) 1.7 th/mm3 (0.0-0.9); Mono % (Auto) 12.2 % (0.0-8.0); Neut # (Auto) 10.5 th/mm3 (1.8-7.7); Neut % (Auto) 75.3 % (16.0-70.0); Platelet Count 266 th/mm3 (150-450); Red Blood Count 2.53 mil/mm3 (4.00-5.30); Red Cell Distribution Width 14.4 % (11.6-17.2); White Blood Count 13.9 th/mm3 (4.0-11.0)
[2018-07-11 06:06] LABS: Carbon Dioxide 25.1 meq/L (21.0-32.0)
[2018-07-11] MEDS: Senna/Docusate Sodium 8.6/50 MG Tablet PO SCH ×2 (09:44→22:46)
[2018-07-11] MEDS: Dextrose 5%/NaCl 0.45% Inj 1,000 ML IV.CONT SCH (09:45)
--- NOTE | 2018-07-11 09:45 | P.PN ---
Subjective Interval history: Follow up for left femur fracture s/p intramedullary nail, dementia. The patient is seen with her at bedside. He reports her mentation is slowly improving however not back at baseline yet and still quite drowsy. She hardly verbalizes her name, difficulty to understand, not oriented to place/time. reports minimal oral intake. also concerned pacer battery is and requesting pacer check by [facility]. He does plan to take the patient to [place] for replacement when needed. No other concerns reported by RN or . Physical Exam Vital signs: Vital Signs 07/10/18 12:00 07/10/18 16:00 07/10/18 20:00 Temperature 98.6 F 99.7 F H 98.2 F Pulse Rate 89 84 83 Respiratory Rate 18 18 16 Blood Pressure 109/56 L 121/55 L 100/52 L Pulse Oximetry 93 L 92 L 91 L 07/11/18 00:00 07/11/18 08:00 Temperature 98.4 F 99.7 F H Pulse Rate 77 91 H Respiratory Rate 16 16 Blood Pressure 106/54 L 101/52 L Pulse Oximetry 92 L 91 L Intake & Output 07/10/18 07/11/18 07/11/18 18:59 06:59 18:59 Intake Total 1650 / 1650 1100 / 1100 Output Total 350 / 350 775 / 775 Balance 1300 / 1300 325 / 325 Weight 53.4 kg Intake: IV 1050 / 1050 1100 / 1100 NS Inj 1,000 ML @ 70 mls/hr IV. 1000 / 1000 1000 / 1000 CONT .[id number] [facility] Rx#:[id number] Ancef 1 GM Premix Inj 1 gm In 50 / 50 100 / 100 50 ml @ 100 mls/hr IV.SIG Q8H [facility] Rx#:[id number] Oral 600 / 600 Output: Urine 350 / 350 Urine Amount (Catheter) 775 / 775 Indwelling Urethral Catheter 775 / 775 Other: Date of Last Bowel Movement 07/09/18 07/09/18 07/09/18 # Bowel Movements 0 Narrative: GENERAL: Well-nourished, well-developed patient in NAD. Drowsy but arousable. SKIN: Warm and dry. No rash. HEENT: Normocephalic. Atraumatic. Pupils equal and round. Mucous membranes pink and moist. NECK: Supple. Trachea midline. Head leaning to left secondary to chronic scoliosis. CARDIOVASCULAR: Regular rate and rhythm. No murmur appreciated. Pacer at right upper chest. RESPIRATORY: No accessory muscle use. Clear to auscultation. Breath sounds equal bilaterally. GASTROINTESTINAL: Abdomen soft, non-tender, nondistended. Normoactive bowel sounds x4. MUSCULOSKELETAL: No obvious deformities. Extremities without clubbing, cyanosis , or edema. Left hip surgical dressing, CDI. NEUROLOGICAL: Awake and alert, oriented to self only. Moving all extremities spontaneously. Difficult to understand. PSYCHIATRIC: insight and judgment limited. - Urinary Catheter Management Indwelling Urethral Catheter Cath placed during this visit: yes, but has since been removed by the nurse Reason for continuing: Decision to DC catheter Insertion date: 07/08/18 Insertion time: 15:58 Removal date: 07/11/18 Removal time: 06:30 Results - Labs CBC & Chem 7: 07/11/18 04:47 07/11/18 04:47 Laboratory Results - last 24 hr 07/11/18 07/11/18 04:47 04:47 WBC 13.9 H RBC 2.53 L Hgb 7.4 L Hct 22.2 L MCV 87.5 MCH 29.3 MCHC 33.4 RDW 14.4 Plt Count 266 MPV 9.1 Neut % (Auto) 75.3 H Lymph % (Auto) 12.0 Dyer % (Auto) 12.2 H Eos % (Auto) 0.0 Baso % (Auto) 0.5 Neut # (Auto) 10.5 H Lymph # (Auto) 1.7 Dyer # (Auto) 1.7 H Eos # (Auto) 0.0 Baso # (Auto) 0.1 WBC Differential . Differential Comment Auto diff final Sodium 150 H Potassium 4.0 Chloride 117 H Carbon Dioxide 25.1 Anion Gap 8 BUN 35 H Creatinine 0.76 Estimated GFR 74 L Random Glucose 97 Calcium 8.0 L - Imaging Femur X-Ray 07/08/18 12:45 CONCLUSION: Comminuted and mildly displaced and mildly angulated intertrochanteric and proximal shaft fracture of the left femur. Tibia/Fibula X-Ray 07/08/18 12:45 CONCLUSION: Left tibia and fibula appear intact. Pelvis X-Ray 07/08/18 12:46 CONCLUSION: No evidence of pelvic fracture. Chest X-Ray 07/08/18 14:09 CONCLUSION: Mild right upper lobe opacification, probably scarring although a mild pneumonic infiltrate is not excludable. I don't have any pertinent priors. No other evidence of acute cardiopulmonary disease. Hip X-Ray 07/09/18 00:00 CONCLUSION: Fixation left intertrochanteric fracture. - Procedures 07/09/18- Intramedullary nail left subtrochanteric femur fracture by Dr. Herrera Assessment and Plan - Plan 77-year-old female with Lewy body dementia status post fall at home. Left femur fracture s/p mechanical fall at home -xrays reviewed, consistent with comminuted left intertrochanteric hip fracture. Tib-fib x-ray is normal and pelvis intact. -orthopedics consulted -S/P Intramedullary nail left subtrochanteric femur fracture, Dr. Herrera 07/16 -Follow up with Dr. Herrera plan in 2 weeks -Tylenol for pain. Avoid narcotics -PT recommends Rehab placement -Still drowsy post surgery however improving, continue to monitor Afib s/p ablation and pacemaker -per needs to be checked in Nov -discussed with RN to contact [facility] for pacer check -monitor on telemetry Lewy body dementia -Continue with vitamin B12 1000mcg bid, Namenda 2.5 twice daily DVT Prophylaxis: Lovenox sq
[2018-07-11] MEDS: Enoxaparin Inj 40 MG/0.4 ML Syringe SQ SCH (09:46)
--- NOTE | 2018-07-11 10:32 | P.PNOP ---
Subjective Interval history: Resting comfortably. Remains somewhat drowsy Physical Exam Vital signs: Vital Signs 07/10/18 12:00 07/10/18 16:00 07/10/18 20:00 Temperature 98.6 F 99.7 F H 98.2 F Pulse Rate 89 84 83 Respiratory Rate 18 18 16 Blood Pressure 109/56 L 121/55 L 100/52 L Pulse Oximetry 93 L 92 L 91 L 07/11/18 00:00 07/11/18 08:00 Temperature 98.4 F 99.7 F H Pulse Rate 77 91 H Respiratory Rate 16 16 Blood Pressure 106/54 L 101/52 L Pulse Oximetry 92 L 91 L Intake & Output 07/10/18 07/11/18 07/11/18 18:59 06:59 18:59 Intake Total 1650 / 1650 1100 / 1100 Output Total 350 / 350 775 / 775 Balance 1300 / 1300 325 / 325 Weight 53.4 kg Intake: IV 1050 / 1050 1100 / 1100 NS Inj 1,000 ML @ 70 mls/hr IV. 1000 / 1000 1000 / 1000 CONT .[id number] [facility] Rx#:[id number] Ancef 1 GM Premix Inj 1 gm In 50 / 50 100 / 100 50 ml @ 100 mls/hr IV.SIG Q8H [facility] Rx#:[id number] Oral 600 / 600 Output: Urine 350 / 350 Urine Amount (Catheter) 775 / 775 Indwelling Urethral Catheter 775 / 775 Other: Date of Last Bowel Movement 07/09/18 07/09/18 07/09/18 # Bowel Movements 0 Narrative: Sleeping but arousable LLE: dressings in place without significant drainage. Neg Homans. BCR - Urinary Catheter Management Indwelling Urethral Catheter Cath placed during this visit: yes, but has since been removed by the nurse Reason for continuing: Decision to DC catheter Insertion date: 07/08/18 Insertion time: 15:58 Removal date: 07/11/18 Removal time: 06:30 Results - Labs CBC & Chem 7: 07/11/18 04:47 07/11/18 04:47 Laboratory Results - last 24 hr 07/11/18 07/11/18 04:47 04:47 WBC 13.9 H RBC 2.53 L Hgb 7.4 L Hct 22.2 L MCV 87.5 MCH 29.3 MCHC 33.4 RDW 14.4 Plt Count 266 MPV 9.1 Neut % (Auto) 75.3 H Lymph % (Auto) 12.0 Mcdonough % (Auto) 12.2 H Eos % (Auto) 0.0 Baso % (Auto) 0.5 Neut # (Auto) 10.5 H Lymph # (Auto) 1.7 Mcdonough # (Auto) 1.7 H Eos # (Auto) 0.0 Baso # (Auto) 0.1 WBC Differential . Differential Comment Auto diff final Sodium 150 H Potassium 4.0 Chloride 117 H Carbon Dioxide 25.1 Anion Gap 8 BUN 35 H Creatinine 0.76 Estimated GFR 74 L Random Glucose 97 Calcium 8.0 L Assessment and Plan - Assessment and Plan 77yo F with h/o Lewy body dementia and nonverbal at baseline, with closed left subtrochanteric femur fracture, POD#2 status post intramedullary nail of her left subtrochanteric femur fracture 1. PWB 50% LLE 2. PT for mobilization 3. Dressing changes to start POD#2 4. Patient will likely require rehab placement. May follow-up in my office in 2 weeks 5. Lovenox for DVT ppx while inpatient. May switch to Xarelto upon discharge for 3 weeks.
[2018-07-11 12:30] LABS: Bacteria,Urine Many /hpf; Bilirubin,Urine Negative (Negative); Color,Urine Yellow (Yellw/Straw); Glucose,Urine (UA) Negative (Negative); Leukocyte Esterase,Urine Large (Negative); Mucus,Urine Few /lpf (Occasional); Nitrite,Urine Negative (Negative); Specific Gravity,Urine 1.024 (1.002-1.035); Squamous Epithelial Cell,Urine 6 /hpf (0-5)
[2018-07-11 12:39] LABS: Clarity,Urine Hazy (Clear)
[2018-07-12] MEDS: ceFAZolin 1 GM Premix Inj 1 GM/50 ML FROZ.PIGGY IV.SIG SCH ×4 (01:33→17:52)
[2018-07-12 05:13] LABS: Baso # (Auto) 0.1 th/mm3 (0.0-0.2); Baso % (Auto) 0.6 % (0.0-2.0); Eos % (Auto) 0.1 % (0.0-4.0); Hemoglobin 7.3 gm/dL (11.6-15.3); Lymph # (Auto) 1.6 th/mm3 (1.0-4.8); Lymph % (Auto) 12.3 % (9.0-44.0); Mean Corpuscular HGB Conc 34.7 % (32.0-36.0); Mean Corpuscular Volume 86.3 fL (80.0-100.0); Mean Platelet Volume 8.8 fL (7.0-11.0); Mono # (Auto) 1.8 th/mm3 (0.0-0.9); Mono % (Auto) 13.2 % (0.0-8.0); Neut # (Auto) 9.8 th/mm3 (1.8-7.7); Neut % (Auto) 73.8 % (16.0-70.0); Platelet Count 302 th/mm3 (150-450); Red Blood Count 2.43 mil/mm3 (4.00-5.30); Red Cell Distribution Width 14.3 % (11.6-17.2); White Blood Count 13.3 th/mm3 (4.0-11.0)
[2018-07-12 05:37] LABS: Calcium 7.7 mg/dL (8.5-10.1); Carbon Dioxide 27.2 meq/L (21.0-32.0); Potassium 4.1 meq/L (3.5-5.1)
[2018-07-12] MEDS: Dextrose 5%/NaCl 0.45% Inj 1,000 ML IV.CONT SCH (06:36)
--- NOTE | 2018-07-12 09:18 | P.PN ---
Subjective Interval history: Follow up for dementia, UTI, s/p intramedullary nail of left hip fracture. The patient is awake, alert, continues to be pleasantly demented, only able to state her name occasionally, otherwise does not answer questions. 0900hrs: Vitals signs documented this morning to be HR 147. Patient seen around 9am, bedside pulse check by me 100-110. Stat EKG and telemetry ordered. Also ordered stat CXR, blood cultures, and lactic acid as patient meets sepsis criteria with tmax 100.5 and tachycardia with known UTI. 1130hrs: Agnes called for patient with HR in 140s-150s. EKG showed afib with RVR. Patient seen by myself and Dr. Valdez. IV Cardizem 10mg x2 given. HR still uncontrolled in 140s and SBP in 90s. Ordered IV Metoprolol 2.5mg x2 and transfer to critical care as patient may need drip for rate control. IV metoprolol never given as HR returned to paced 80bpms. Cardiology consulted, discussed with Dr. Aleman who will see the patient. Discussed with RN, cardiac rehabilitation program director, nurse marketing production manager, agnes BOO, and patient's at bedside. The reports the patient had a similar episode after her last hip surgery. He believes she corrected with IV metoprolol at that time. The patient has a history of afib s/p ablation and pacemaker, but does not take any rate controlling medications at home and never has issues. The patient did have a pacer check yesterday, the patient is paced at 80bpm, with last brief episode of RVR back on 05/16/18. The patient's reports the pacer was placed due to bradycardia. She follows with cardiology in [place] called [facility], Dr. Sagar Matthews . Physical Exam Vital signs: Vital Signs 07/11/18 12:00 07/11/18 16:00 07/11/18 20:00 Temperature 98.8 F 99.9 F H 99.4 F Pulse Rate 86 88 86 Respiratory Rate 19 19 17 Blood Pressure 113/50 L 146/59 H 127/58 L Pulse Oximetry 98 95 90 L 07/12/18 00:00 07/12/18 04:00 07/12/18 08:00 Temperature 98.6 F 98.9 F 100.5 F H Pulse Rate 88 80 147 H Respiratory Rate 18 Blood Pressure 122/67 126/66 131/61 Pulse Oximetry 91 L 90 L 91 L Intake & Output 07/11/18 07/12/18 07/12/18 18:59 06:59 18:59 Intake Total 100 / 100 1756 / 1756 Output Total 500 / 500 Balance 100 / 100 1256 / 1256 Intake: IV 100 / 100 1756 / 1756 D5W/1/2 NS Inj 1,000 ML @ 50 1000 / 1000 mls/hr IV.CONT .Q20H HELEN Rx#: [id number] NS Inj 1,000 ML @ 70 mls/hr IV. 606 / 606 CONT .[id number] HELEN Rx#:[id number] Ancef 1 GM Premix Inj 1 gm In 100 / 100 50 / 50 50 ml @ 100 mls/hr IV.SIG Q8H HELEN Rx#:[id number] Rocephin Inj 1,000 MG In NS Inj 100 / 100 100 ML @ 200 mls/hr IV.SIG Q24H HELEN Rx#:[id number] Output: Urine 500 / 500 Other: Date of Last Bowel Movement 07/09/18 07/09/18 Narrative: GENERAL: Well-nourished, well-developed patient in NAD. Awake, alert. Does not answer questions appropriately. Will occasionally say her name or yes/no. SKIN: Warm and dry. No rash. HEENT: Normocephalic. Atraumatic. Pupils equal and round. Mucous membranes pink and moist. NECK: Supple. Trachea midline. Head leaning to left secondary to chronic scoliosis. CARDIOVASCULAR: Irregularly irregular tachycardic rate and rhythm. No murmur appreciated. Pacer at right upper chest. RESPIRATORY: No accessory muscle use. Clear to auscultation. Breath sounds equal bilaterally. GASTROINTESTINAL: Abdomen soft, non-tender, nondistended. Normoactive bowel sounds x4. MUSCULOSKELETAL: No obvious deformities. Extremities without clubbing, cyanosis , or edema. Left hip surgical dressing, CDI. NEUROLOGICAL: Awake and alert, oriented to self only. Moving all extremities spontaneously. Difficult to understand. PSYCHIATRIC: insight and judgment limited. - Urinary Catheter Management Indwelling Urethral Catheter Cath placed during this visit: yes, but has since been removed by the nurse Reason for continuing: Decision to DC catheter Insertion date: 07/08/18 Insertion time: 15:58 Removal date: 07/11/18 Removal time: 06:30 Results - Labs CBC & Chem 7: 07/12/18 04:53 07/12/18 04:53 Laboratory Results - last 24 hr 07/11/18 07/12/18 07/12/18 11:00 04:53 04:53 WBC 13.3 H RBC 2.43 L Hgb 7.3 L Hct 21.0 L MCV 86.3 MCH 30.0 MCHC 34.7 RDW 14.3 Plt Count 302 MPV 8.8 Neut % (Auto) 73.8 H Lymph % (Auto) 12.3 Nash % (Auto) 13.2 H Eos % (Auto) 0.1 Baso % (Auto) 0.6 Neut # (Auto) 9.8 H Lymph # (Auto) 1.6 Nash # (Auto) 1.8 H Eos # (Auto) 0.0 Baso # (Auto) 0.1 WBC Differential . Differential Comment Auto diff final Sodium 150 H Potassium 4.1 Chloride 117 H Carbon Dioxide 27.2 Anion Gap 6 BUN 32 H Creatinine 0.79 Estimated GFR 70 L Random Glucose 132 H Calcium 7.7 L Urine Color Yellow Urine Clarity Hazy H Urine pH 6.0 Ur Specific [place] 1.024 Urine Protein 30 H Urine Glucose (UA) Negative Urine Ketones Trace H Urine Occult Blood Negative Urine Nitrate Negative Urine Bilirubin Negative Urine Urobilinogen 2.0 H Ur Leukocyte Esterase Large H Urine RBC 2 Urine WBC 21 H Ur Squamous Epith Cells 6 Urine Bacteria Many H Urine Mucus Few H Micro UA Comment Culture indicated Ur Microscopic Review Not Reportable Urine Culture Comments Culture indicated - Imaging Femur X-Ray 07/08/18 12:45 CONCLUSION: Comminuted and mildly displaced and mildly angulated intertrochanteric and proximal shaft fracture of the left femur. Tibia/Fibula X-Ray 07/08/18 12:45 CONCLUSION: Left tibia and fibula appear intact. Pelvis X-Ray 07/08/18 12:46 CONCLUSION: No evidence of pelvic fracture. Chest X-Ray 07/08/18 14:09 CONCLUSION: Mild right upper lobe opacification, probably scarring although a mild pneumonic infiltrate is not excludable. I don't have any pertinent priors. No other evidence of acute cardiopulmonary disease. Hip X-Ray 07/09/18 00:00 CONCLUSION: Fixation left intertrochanteric fracture. - Procedures 07/09/18- Intramedullary nail left subtrochanteric femur fracture by Dr. Herrera Assessment and Plan - Plan 77-year-old female with Lewy body dementia status post fall at home. Left femur fracture s/p mechanical fall at home -xrays reviewed, consistent with comminuted left intertrochanteric hip fracture. Tib-fib x-ray is normal and pelvis intact. -orthopedics consulted -S/P Intramedullary nail left subtrochanteric femur fracture, Dr. Herrera 07/16 -Follow up with Dr. Javier march in 2 weeks -Tylenol for pain. Avoid narcotics -PT recommends Rehab placement -Still drowsy post surgery however improving, continue to monitor Afib with RVR: patient with hx of ablation and pacemaker, not on any rate controlling medications at home -per pacer needs to be checked in Nov -[facility] performed pacer check on 07/11, unremarkable, paced rhythm at 80bpm -monitor on telemetry -s/p Halicat at 1130hrs on 07/12, given IV Cardizem 10mg x2, transferred to [facility], ordered IV metoprolol however never given as the HR improved back to paced 80 bpms. -Cardiology consulted, discussed with Dr. Aleman who will see the patient -check D-dimer, although patient has been on Lovenox sq since surgery Sepsis: acute. Suspect secondary to UTI, possible HCAP -patient meets sepsis with WBC 13K, tachycardia, fever 100.5 -lactic acid 1.6 -UA remarkable for UTI -Urine culture pending -Blood cultures collected and pending -Repeat stat CXR 07/12 shows worsening consolidation -Check antibiotics to IV Zosyn to cover for UTI and possible HCAP Lewy body dementia -Continue with vitamin B12 1000mcg bid, Namenda 2.5 twice daily Hypernatremia: Na 150 -patient was previously on IVF with NS, changed to Dextrose 5% in water -monitor daily BMP DVT Prophylaxis: Lovenox sq
[2018-07-12] MEDS: Dextrose 5% in Water Inj 1,000 ML IV.CONT SCH (10:05)
[2018-07-12] MEDS: Enoxaparin Inj 40 MG/0.4 ML Syringe SQ SCH (10:06)
[2018-07-12] MEDS: Senna/Docusate Sodium 8.6/50 MG Tablet PO SCH ×2 (10:06→22:39)
[2018-07-12] MEDS: Acetaminophen 325 MG Tablet PO PRN (10:07)
--- NOTE | 2018-07-12 10:11 | XR ---
EXAM DATE: 07/12/2018 10:05 AM EST AGE/SEX: 77 years / Female INDICATIONS: Fever. CLINICAL DATA: This is the patient's subsequent encounter. Patient reports that signs and symptoms h ave been present for 3 days and indicates a pain score of Nonresponsive. MEDICAL/SURGICAL HISTORY: Chronic obstructive pulmonary disease. Carcinoma, breast. Atrial fib rillation. Lewy Body dementia. Hysterectomy. Pacemaker. . COMPARISON: [facility], CHEST 1V SINGLE AP, 07/08/2018. . FINDINGS: Pacer in good position. The minimal parenchymal opacity right upper lobe is not visualized. Increasing consolidation left base. Cardiomegaly with mild interstitial edema. CONCLUSION: Increasing consolidation left base new from comparison study. Mild interstitial edema. Electronically signed by: Yannick Manzanares MD 07/12/2018 10:10 AM EST
--- NOTE | 2018-07-12 11:30 | ECG ---
Date Performed: 07/12/2018 Time Performed: 10:32:39 PTAGE: 77 years EKG: ATRIAL FIBRILLATION WITH RAPID VENTRICULAR RESPONSE WITH ABERRANT CONDUCTION OR VENTRICULAR PREMATURE COMPLEXES SEPTAL MYOCARDIAL INFARCTION , PROBABLY OLD ABNORMAL ECG PREVIOUS TRACING : 07/08/2018 21.59 DOCTOR: Cornelio Morgan Interpretating Date/Time 07/12/2018 11:29:33
[2018-07-12] MEDS ORDERED: Digoxin Inj 500 MCG/2 ML Ampul IV.PUSH ONE (12:05)
[2018-07-12] MEDS: Metoprolol Inj 5 MG/5 ML Vial IV.PUSH SCH ×2 (13:53→14:33)
[2018-07-12] MEDS: Piperacil/Tazo 4.5 GM Premix 4.5 GM/100 ML BAG IV.SIG SCH ×2 (14:35→22:39)
--- NOTE | 2018-07-12 16:29 | P.DIET ---
Nutritional Evaluation Type of nutrition evaluation: initial Nutrition screening: [facility] (Poor PO Intake) Screening comments: Halicat to [facility] today. Subjective Subjective Comments: Dementia Objective - Diagnosis L hip Fx - Objective % IBW: 94 (IBW = 94%) Body Weight Used for Calculations: Actual (53.4 kg) Energy Needs - Lower Range (kCal/kg): 28 Energy Needs - Upper Range (kCal/kg): 32 Lower Limit kCal/kg (kCals): 1,495 Upper Limit kCal/kg (kCals): 1,709 Lower Limit Protein Factor (Grams per Kg): 1.0 Upper Limit Protein Factor (Grams per Kg): 1.5 Lower Protein Needs (Protein): 53 Upper Protein Needs (Protein): 80 Fluid Factor (ml/kg): 32 Estimated Fluid Needs (ml): 1,709 Dietitian Reviewed in Medical Record: Current diet, Curent medications, Intake & Output, Labs, Medical history Diet Order: Regular Assessment Assessment: Pt is s/p intramedulary nail L femur (07/09) and was transferred to [facility] today d/ t uncontrolled heart rate. RD will monitor medical course and po intake to assess the need for supplements. Recommendations: RD following. Dietitian to Monitor: Lab values, Intake & Output, Diet tolerance, Weight change , PO Intake, Medical course
--- NOTE | 2018-07-12 16:47 | MB ---
cc: Isaiah Aleman DATE: 07/12/2018 REASON FOR CONSULTATION: Atrial fibrillation with rapid ventricular response. HISTORY OF PRESENT ILLNESS: The patient is a pleasant 77-year-old female who had a fall at home. She has very poor balance and gait at baseline. She was attempting to transfer and lost her balance and fell under her left leg. She underwent intramedullary nail of the left subtrochanteric femur. The patient states that she had not been eating a whole lot since her admission on 07/08/2018. Apparently, this morning, she was found to have atrial fibrillation with rapid ventricular response with heart rates in the 140's to 150's and given 2 doses of Cardizem. Her heart rate decreased slightly but her blood pressure dropped into the systolic of 90's. At that time, she was transferred to the critical care unit. I was asked to see her due to the atrial fibrillation with rapid ventricular response. The patient has a plant changer in [place], Dr. Sagar Matthews, with the [facility] who can be reached at [phone] for further information. Per the , the patient previously had a [facility] [facility] pacemaker placed for bradycardia. She then underwent what sounded like cryoablation for atrial fibrillation around 7-10 years ago. Since that time, she has had very minimal episodes of atrial fibrillation that he knows of, with the only other time being around 2 years ago up in [place] when she fell and broke her right hip. She had a similar type episode where she went into atrial fibrillation with rapid ventricular response, was treated with medications and since then has been on no AV alina blocking agents. PAST MEDICAL HISTORY: 1. Atrial fibrillation. 2. Breast cancer. 3. Chronic obstructive pulmonary disease. 4. Lewy body dementia. PAST SURGICAL HISTORY: 1. Hysterectomy. 2. Cryoablation for atrial fibrillation. 3. [facility] [facility] pacemaker placement for bradycardia. ALLERGIES: NO KNOWN DRUG ALLERGIES. MEDICATIONS: 1. Namenda 2.5 mg b.i.d. 2. Vitamin B12, 1000 mcg b.i.d. FAMILY HISTORY: Denies premature coronary artery disease or sudden cardiac within the family. SOCIAL HISTORY: The patient continues to smoke occasionally. Denies alcohol or drug abuse. REVIEW OF SYSTEMS: Fourteen systems were reviewed including osteopathic pertinent positives and negatives above, otherwise negative. PHYSICAL EXAMINATION: VITAL SIGNS: Temperature 98.8, heart rate 85, blood pressure 105/51, respirations 25, pulse oximetry 91% on room air. GENERAL: The patient is in no acute distress, alert and awake. She does not answer questions really appropriately and occasionally will say her name or yes or no. HEENT: Extraocular muscles intact. Mucous membranes moist. NECK: Supple. No JVD at 45 degrees. No carotid bruits heard bilaterally. Carotid upstroke is brisk in nature. HEART: Regular rate and rhythm. Positive first and second heart sound with no noted murmurs, gallops or rubs. Pacemaker is noted in the right upper chest wall. LUNGS: Clear to auscultation bilaterally. No wheezes, rales or rhonchi. ABDOMEN: Soft, nontender, nondistended. No organomegaly noted. EXTREMITIES: Show no clubbing, cyanosis or edema. Left hip surgical dressing is clean, dry and intact. NEUROLOGIC: Awake and alert and oriented to self. Appears to be moving extremities spontaneously. SKIN: Warm, dry and intact. OSTEOPATHIC: No kyphoscoliosis or lordosis. LABORATORY DATA: Hemoglobin 7.3, hematocrit 21.0, platelets 302. Potassium 4.1, BUN 32, creatinine 0.79. Electrocardiogram (07/12/2018 at 10:32). Atrial fibrillation with rapid ventricular response, possible old septal myocardial infarction, nonspecific ST-T wave changes. IMPRESSION: 1. Atrial fibrillation with rapid ventricular response. 2. History of atrial fibrillation ablation with [facility] [facility] pacemaker placement for bradycardia. 3. Lewy body dementia. 4. Multiple mechanical falls, status post left lower extremity intramedullary nail. RECOMMENDATIONS: 1. The patient has since converted from her atrial fibrillation with rapid ventricular response to atrial paced with a normal ventricular rate. 2. I spoke with the and for now, he would like to avoid AV alina blocking agents as her plant changer is not placed it on her since the atrial fibrillation ablation. 3. We will continue to follow her on telemetry and if further episodes, she may need to be on a low dose of AV alina blocking agents. 4. As far as anticoagulation goes, I do not believe that she is a long-term candidate for this due to her multiple falls. This was discussed with the and he is overall in agreement. 5. Further recommendations will be made based on hospital course. Thank you for allowing me to see the patient. If there are any questions, please do not hesitate to call. DO ROBYN Burton/odalys/shawn , 04:00 PM , 04:14 PM
[2018-07-13] MEDS: ceFAZolin 1 GM Premix Inj 1 GM/50 ML FROZ.PIGGY IV.SIG SCH ×3 (01:49→18:18)
[2018-07-13] MEDS: Piperacil/Tazo 4.5 GM Premix 4.5 GM/100 ML BAG IV.SIG SCH ×4 (02:53→20:50)
[2018-07-13] MEDS: Dextrose 5% in Water Inj 1,000 ML IV.CONT SCH ×3 (02:53→23:17)
--- NOTE | 2018-07-13 09:27 | P.PN ---
Subjective Interval history: Follow up for dementia, UTI, HCAP, hip fx s/p intramedullary nail, afib with RVR. Patient seen with speech therapy at bedside, attempting repeat swallow evaluation. The patient is awake, alert, but does not answer any questions, mostly moans. Patient still with minimal oral intake. Physical Exam Vital signs: Vital Signs 07/12/18 11:32 07/12/18 11:34 07/12/18 11:39 Temperature 99.8 F H 100.1 F H 101 F H Pulse Rate 150 H 154 H 151 H Respiratory Rate 30 H 30 H 30 H Blood Pressure 111/50 L 124/62 128/58 L Pulse Oximetry 07/12/18 11:46 07/12/18 11:51 07/12/18 12:33 Temperature 100.7 F H Pulse Rate 155 H 168 H 85 Respiratory Rate 30 H 41 H Blood Pressure 107/55 L Pulse Oximetry 07/12/18 12:39 07/12/18 13:00 07/12/18 13:18 Temperature 98.8 F Pulse Rate 85 86 87 Respiratory Rate 25 H 33 H 35 H Blood Pressure 81/42 L 105/51 L 111/54 L Pulse Oximetry 91 L 87 L 07/12/18 14:00 07/12/18 14:18 07/12/18 15:00 Temperature Pulse Rate 86 86 87 Respiratory Rate 29 H 21 43 H Blood Pressure 88/52 L Pulse Oximetry 07/12/18 15:18 07/12/18 16:00 07/12/18 20:00 Temperature 97.8 F 97.8 F Pulse Rate 92 H 91 H 85 Respiratory Rate 33 H 48 H 18 Blood Pressure 116/56 L 91/53 L Pulse Oximetry 93 L 07/12/18 21:15 07/12/18 23:30 07/12/18 23:55 Temperature 98.2 F Pulse Rate 89 84 90 Respiratory Rate 17 Blood Pressure 93/53 L Pulse Oximetry 92 L 07/13/18 03:53 07/13/18 04:09 Temperature 97.9 F Pulse Rate 84 86 Respiratory Rate 17 Blood Pressure 98/65 L Pulse Oximetry 92 L Intake & Output 07/12/18 07/13/18 07/13/18 18:59 06:59 18:59 Intake Total 1230 / 1230 1420 / 1420 Output Total 125 / 125 Balance 1105 / 1105 1420 / 1420 Weight 53.4 kg Intake: IV 1150 / 1150 1300 / 1300 D5W Inj 1,000 ML @ 84 mls/hr IV 1000 / 1000 .CONT .[id number] HELEN Rx#:[id number] D5W/1/2 NS Inj 1,000 ML @ 50 1000 / 1000 mls/hr IV.CONT .Q20H HELEN Rx#: [id number] Zosyn 4.5 GM Premix 4.5 gm In 100 / 100 200 / 200 100 ml @ 200 mls/hr IV.SIG Q6H HELEN Rx#:[id number] Ancef 1 GM Premix Inj 1 gm In 50 / 50 100 / 100 50 ml @ 100 mls/hr IV.SIG Q8H HELEN Rx#:[id number] Oral 80 / 80 120 / 120 Output: Urine Amount (Catheter) 125 / 125 Female External 125 / 125 Other: # Voids 1 2 Date of Last Bowel Movement 07/12/18 07/09/18 # Incontinent Bowel Movements 1 4 Narrative: GENERAL: Well-nourished, well-developed patient in NAD. Awake, alert. Does not answer questions appropriately. Will occasionally say her name or yes/no. SKIN: Warm and dry. No rash. HEENT: Normocephalic. Atraumatic. Pupils equal and round. Mucous membranes pink and moist. NECK: Supple. Trachea midline. Head leaning forward and to the left secondary to chronic scoliosis. CARDIOVASCULAR: Regular rate and rhythm. No murmur appreciated. Pacer at right upper chest. RESPIRATORY: No accessory muscle use. Clear to auscultation. Breath sounds equal bilaterally. GASTROINTESTINAL: Abdomen soft, non-tender, nondistended. Normoactive bowel sounds x4. MUSCULOSKELETAL: No obvious deformities. Extremities without clubbing, cyanosis , or edema. Left hip surgical dressing, CDI. NEUROLOGICAL: Awake and alert. Moving all extremities spontaneously. Difficult to understand, mostly moans. PSYCHIATRIC: insight and judgment limited. - Urinary Catheter Management Indwelling Urethral Catheter Cath placed during this visit: yes, but has since been removed by the nurse Reason for continuing: Decision to DC catheter Insertion date: 07/08/18 Insertion time: 15:58 Removal date: 07/11/18 Removal time: 06:30 Female External Cath placed during this visit: no Results - Labs CBC & Chem 7: 07/13/18 09:40 07/13/18 09:40 Laboratory Results - last 24 hr 07/12/18 07/12/18 07/12/18 11:10 11:33 14:05 D-Dimer Quant (PE/DVT) 4.76 H POC Glucose 162 H Lactic Acid 1.6 Microbiology 07/11/18 11:00 Clean Catch Urine Urine Culture - Final 50-100,000 cfu/mL mixed uzma (probable contaminants ) 07/12/18 11:05 Blood - Peripheral Anaerobic Blood Culture - Final QNS - See aerobic report. 07/12/18 11:10 Blood - Peripheral Anaerobic Blood Culture - Final QNS - See aerobic report. - Imaging Impressions Chest X-Ray 07/12/18 09:17 CONCLUSION: Increasing consolidation left base new from comparison study. Mild interstitial edema. - Procedures 07/09/18- Intramedullary nail left subtrochanteric femur fracture by Dr. Herrera Assessment and Plan - Plan 77-year-old female with Lewy body dementia status post fall at home. Left femur fracture s/p mechanical fall at home -xrays reviewed, consistent with comminuted left intertrochanteric hip fracture. Tib-fib x-ray is normal and pelvis intact. -orthopedics consulted -S/P Intramedullary nail left subtrochanteric femur fracture, Dr. Herrera 07/16 -Follow up with Dr. Herrera in 2 weeks -Tylenol for pain. Avoid narcotics -PT recommends Rehab placement Afib with RVR: patient with hx of ablation and pacemaker, not on any rate controlling medications at home -per pacer needs to be checked in Nov -[facility] performed pacer check on 07/11, unremarkable, paced rhythm at 80bpm -monitor on telemetry -s/p Halicat on 07/12, given IV Cardizem 10mg x2, transferred to [facility], now back in normal sinus paced rhythm -Cardiology consulted, discussed with Dr. Aleman, appreciate assistance Hypoxia and Elevated D-Dimer -patient with episodes of hypoxia as low as 87% -D-dimer elevated at 4.76 -check chest CTA Sepsis: acute. Suspect secondary to UTI, possible HCAP -patient meets sepsis with WBC 13K, tachycardia, fever 100.5 -lactic acid 1.6 -UA remarkable for UTI however urine culture with mixed uzma -Change antibiotics to IV Zosyn and IV Vanco with pharmacy consult -Blood cultures with NGTD -Repeat stat CXR 07/12 shows worsening consolidation -Checking chest CTA as above Lewy body dementia -Continue with vitamin B12 1000mcg bid, Namenda 2.5 twice daily Hypernatremia: Na 150 -patient was previously on IVF with NS, changed to Dextrose 5% in water -monitor daily BMP -repeat Na 145 today, improved Protein Calorie Malnutrition with Poor Oral Intake: suspect multifactorial with dementia, recent hip fracture, infection. -speech therapy following -dietitian consulted for calorie count -add Ensure to meals DVT Prophylaxis: Lovenox sq Discharge Planninhrs update: Chest CTA negative for PE however shows right perihilar mass suspicious for bronchogenic carcinoma. Consult pulmonology. Also consult palliative care to assist with goals of treatment.
[2018-07-13] MEDS: Enoxaparin Inj 40 MG/0.4 ML Syringe SQ SCH (10:03)
[2018-07-13 10:16] LABS: Baso % (Auto) 0.3 % (0.0-2.0); Eos # (Auto) 0.1 th/mm3 (0.0-0.4); Eos % (Auto) 0.3 % (0.0-4.0); Hematocrit 22.2 % (35.0-46.0); Hemoglobin 7.3 gm/dL (11.6-15.3); Lymph # (Auto) 1.8 th/mm3 (1.0-4.8); Lymph % (Auto) 12.1 % (9.0-44.0); Mean Corpuscular HGB Conc 33.1 % (32.0-36.0); Mean Corpuscular Hemoglobin 29.4 pg (27.0-34.0); Mean Corpuscular Volume 88.9 fL (80.0-100.0); Mono # (Auto) 1.4 th/mm3 (0.0-0.9); Mono % (Auto) 8.9 % (0.0-8.0); Neut % (Auto) 78.4 % (16.0-70.0); Platelet Count 375 th/mm3 (150-450); Red Blood Count 2.49 mil/mm3 (4.00-5.30); Red Cell Distribution Width 14.4 % (11.6-17.2); White Blood Count 15.3 th/mm3 (4.0-11.0)
[2018-07-13 10:25] LABS: Calcium 7.8 mg/dL (8.5-10.1); Carbon Dioxide 26.6 meq/L (21.0-32.0); Magnesium 2.1 mg/dL (1.5-2.5); Potassium 3.5 meq/L (3.5-5.1)
--- NOTE | 2018-07-13 10:32 | CT ---
EXAM DATE: 07/13/2018 10:22 AM EST AGE/SEX: 77 years / Female INDICATIONS: Shortness of breath. CLINICAL DATA: This is the patient's initial encounter. Patient reports that signs and symptoms have been present for 1 day and indicates a pain score of 0/10. MEDICAL/SURGICAL HISTORY: Cardiovascular disease. Chronic obstructive pulmonary disease. Pacemaker . Hysterectomy. RADIATION DOSE: 9.14 CTDI (mGy) COMPARISON: No prior exams available for comparison. TECHNIQUE: Volumetric scanning was performed using a multi-row detector CT scanner during bolus infu osmel of 70 ml Omnipaque 350 (iohexol) nonionic water-soluble contrast as a single exam dose. The alexa a was post processed with a variety of visualization algorithms including full volume maximum intensi ty projection and sliding thin slab reformation. Using automated exposure control and adjustment of t he mA and/or kV according to patient size, radiation dose was kept as low as reasonably achievable to obtain optimal diagnostic quality images. DICOM format image data is available electronically for r eview and comparison. FINDINGS: Pulmonary Arteries: No filling defects are seen in the pulmonary arteries out to the subsegmental ve ssels. The left and right pulmonary arteries are normal in diameter. Lung: Right perihilar mass measuring 3.8 x 4.6 x 3.1 cm is suspicious for bronchogenic carcinoma unt il proven otherwise. Patchy opacity is noted within the right upper lobe and extends to the pleura. A lveolar consolidation is noted involving the left lower lobe consistent with pneumonia and/or atelect asis. Tiny calcified granulomas noted within the right upper lobe. Effusion: Small left pleural effusion is noted. Mediastinum: No evidence of mediastinal or hilar adenopathy. Cardiomegaly and coronary artery calcif ications are noted. Other: The axilla is unremarkable. Severe compression fractures with diffuse underlying sclerotic ch anges are noted involving the mid and lower thoracic spine. Mild compression deformities are also not ed involving the upper and lower thoracic spine. Scoliosis and degenerative changes of the thoracic s pine are noted. CONCLUSION: 1. No evidence of pulmonary embolism. 2. Right perihilar mass measuring 3.8 x 4.6 x 3.1 cm is suspicious for bronchogenic carcinoma until proven otherwise. 3. Patchy opacity is noted within the right upper lobe and extends to the pleura. 4. Alveolar consolidation is noted involving the left lower lobe consistent with pneumonia and/or at electasis. 5. Small left pleural effusion. 6. Multiple compression deformities involving the thoracic spine with underlying diffuse sclerosis i nvolving the severely compressed vertebral bodies. 7. Scoliosis and degenerative changes of the thoracic spine. 8. Cardiomegaly and coronary artery calcification. Electronically signed by: Fadi Mckeon MD 07/13/2018 10:31 AM EST
[2018-07-13] MEDS ORDERED: Vancomycin Consult Pharmacy OTHER PRN (10:59)
--- NOTE | 2018-07-13 14:12 | P.CONPAL ---
Consult Service: Palliative Care Requesting Physician: Jolene Dennis Reason for Consult: a. To assist with evaluation and management of symptoms including: Pain, decreased oral intake, physical deconditioning b. To assist medical decision maker(s) with: better understanding of current medical conditions; weighing benefits/burdens of medical treatment options; making medical treatment decisions. Primary Care Provider: UNKNOWN History of Present Illness History of Present Illness: Mrs. Wilhelm is a 77-year-old female with a medical history of severe Lewy body dementia, atrial fibrillation, breast cancer, and chronic obstructive pulmonary disease. Patient was brought into the emergency room on 07/08/18 for evaluation and treatment after she sustained a fall at home. Patient lost balance while attempting to transfer and fell onto her left leg. ER course: * Vital signs: Temperature 97.5F, respirations 16, BP 106/57 and O2 saturation 95% * EKG revealed electronic atrial pacemaker minimal ST depression. * Laboratory workup revealed WBC 15.2, hemoglobin 9.9, hematocrit 29.5, platelet count 256, PT 10.8, INR 1.1, APTT 28.4, sodium 143, potassium 4.1, BUN/ creatinine 43/1.2, random glucose 125, calcium 8.1 * Femur x-ray revealed comminuted and mildly displaced and mildly angulated into trochanteric and proximal shaft fracture of the left femur * Tib-fib x-ray revealed intact left tibia and fibula. * Pelvis x-ray revealed no fracture * Chest x-ray revealed mild right upper lobe opacification, probably scarring although a mild technique infiltrate is not excludable. * Patient admitted for further evaluation and treatment. Orthopedic consulted on 07/08/18 for evaluation and management of a patient with a left hip fracture recommended operative intervention. Patient underwent intramedullary nailing of left subtrochanteric femur fracture. Urinalysis on positive for large leukocyte esterase -patient started on IV Rocephin. Patient became restless, tachypneic and tachycardic with a heart rate of 150 on 07/12/18-Halicat called. EKG on 07/12/18 revealed atrial fibrillation with rapid ventricular response with aberrant conduction or ventricular premature complexes septal myocardial infarction. Patient was treated with 10 mg IVP Cardizem and transferred to ICU. Cardiology Dr. Aleman consulted on 07/12/18 for evaluation and management of a patient with atrial fibrillation with rapid ventricular response, recommended low dose of AV alina blocking agents though patient's spouse would like to avoid them. Patient reported to have episodes of hypoxia with O2 saturation as low is 87% and an elevated d-dimer at 4.76 on 07/12/18. Chest CTA on 07/13/18 revealed no pulmonary embolism, right perihilar mass measuring 3.8 x 4.6 x 3.1 cm suspicious for bronchogenic carcinoma, patient opacity in right upper lobe and extends to the pleural. Alveolar consolidation involving the left lower lobe consistent with pneumonia and/or atelectasis. Small left pleural effusion. Multiple compression deformities involving the thoracic spine with underlying diffuse sclerosis involving the severely compressed vertebral bodies. Scoliosis and degenerative changes of the thoracic spine and cardiomegaly as well as coronary artery calcification. Pulmonology consulted to evaluate and manage patient with the right perihilar mass suspicious for bronchogenic carcinoma. Consultation pending. Physical therapy consulted, recommended PT at rehab. Speech therapy following with patient, recommending pured diet with thin liquids. Clinical course complicated with sepsis, shortness of breath, and decreased oral intake. Patient seen and examined in the room in the presence of bedside RN and student RN. Patient is alert and oriented to her name only and confused. Currently not showing any signs of pain. Answers simple questions with simple answers. Unable to follow simple commands. Long conversation with patient's Eugene Wilhelm. Introduced palliative care and its role in symptom management and establishment of goals of medical treatment. Obtained psychosocial, past medical history and events leading to this hospitalization. According to patient's , patient has never completed advanced directives. Patient was diagnosed with Lewy body dementia approximately 8-10 years ago. Patient spouse states that he has seen many physicians regarding patient's medical condition Lewy Body dementia. Enquired if patient ever discussed her wishes with her spouse when she was capacitated to do so, patient`s spouse almost tearful and hesitant to state what patient has said to him in the past. He dismissed the discussion by tearfully saying, "i won`t do it" and that he wants everything possible to be done to keep her alive. Addressed CODE STATUS, discussed CPR limitations, benefits and complications. Patient's spouse elected full code. He states that he is not willing to let her go anytime soon. He would want everything to be done for her. After expressing concerns of patient's ongoing multiple comorbidities, as well as progressive nature of lewy body dementia. Patient's spouse states that if patient would end up on life support he would reevaluate code status and will only give up on her when he knows that she would not return to her baseline state. Expressed concern regarding patient's decreased oral intake and possibility of a feeding tube if patient's intake does not improve. Patient spouse stated that he would be amenable to placement of a feeding tube if patient oral intake does not improve. Palliative care contact information provided. Function/Cognitive Trajectory: Patient resides at home with her . She has severe Lewy body dementia and gait imbalance which is exacerbated by the dementia. She has had falls at home. Her is her primary caregiver. She is dependent for all her ADLs except feeding herself. She was ambulatory prior to this hospitalization, occasionally uses a walker. According to spouse almost everywhere in the house they have guard rails that patient holds on to when ambulating in the house. Patient spouse states that he still takes patient to eat out 3-4 times per week. Prior to hospitalization, she was sometimes able to verbalize her needs and sometimes they are anticipated. Patient follows with a society editor in [place], Dr. Sagar benjamin with the [facility]([phone]). Per , patient had a [place] pacemaker placed for bradycardia. Patient underwent cryoablation for atrial fibrillation approximately 7-10 years ago. Family history: Mother -she had lung cancer and liver disease Father -He had heart disease [facility] - History History Provided By: Family Member - Medical History Medical History: Medical History (Last Updated 07/13/18 @ 14:21 by Lynda Donis) Atrial fibrillation Breast cancer COPD (chronic obstructive pulmonary disease) Falls Lewy body dementia Pacemaker - Surgical History Surgical History: Surgical History (Last Updated 07/13/18 @ 14:06 by Lynda Donis) History of cardiac radiofrequency ablation History of permanent cardiac pacemaker placement History of hysterectomy (Resolved) - Family History Family History: Family History (Last Reviewed 07/10/18 @ 07:53 by Pravin Whitehead) Father HTN (hypertension) Mother HTN (hypertension) - Tobacco History Second Hand Smoke Exposure: Yes Tobacco Use In Past 30 Days: Yes Smoking Status: Current some day smoker Tobacco Type: Cigarettes - Alcohol History How Often Do You Have a Drink Containing Alcohol: Monthly or less - Substance Use History Substance History: No History of Abuse - Travel History Recent Travel in the [place] Within the Last 8 Weeks: No Recent Travel Out of the Country Within the Last 8 Weeks: No - Immunization History Tetanus Immunization: >5 Years Hx Influenza Vaccine This Season: No Medications and Allergies Active Medications: Active Medications Acetaminophen (Tylenol) 650 mg PO Q4H PRN PRN Reason: Temp > 100.4 Last Admin: 07/12/18 10:07 Dose: 650 mg Al Hydroxide/Mg Hydroxide (Milk Of Magnesia Liq) 30 ml PO Q12H PRN PRN Reason: Mild Constipation Bisacodyl (Dulcolax Supp) 10 mg RECTAL DAILY PRN PRN Reason: SEVERE CONSITIPATION Cyanocobalamin (Vitamin B12) 1,000 mcg PO BID [facility] Last Admin: 07/12/18 22:39 Dose: 1,000 mcg Diphenhydramine HCl (Benadryl) 25 mg PO Q6H PRN PRN Reason: ITCHING Enoxaparin Sodium (Lovenox Inj) 40 mg SQ DAILY [facility] Last Admin: 07/13/18 10:03 Dose: 40 mg Lactated Ringer's (Lr 1000 Ml Inj) 1,000 mls @ 30 mls/hr IV.SIG .Q24H [facility] Last Admin: 07/13/18 03:08 Dose: Not Given Cefazolin Sodium/Dextrose (Ancef 1 Gm Premix Inj) 1 gm in 50 mls @ 100 mls/hr IV.SIG Q8H [facility] Last Infusion: 07/13/18 02:19 Dose: Infused Dextrose (D5w Inj) 1,000 mls @ 84 mls/hr IV.CONT .[id number] [facility] Last Admin: 07/13/18 02:53 Dose: 84 mls/hr Piperacillin/Tazobactam/Dextrose (Zosyn 4.5 Gm Premix) 4.5 gm in 100 mls @ 200 mls/hr IV.SIG Q6H [facility] Last Infusion: 07/13/18 08:30 Dose: Infused Vancomycin HCl 1,000 mg/ (Sodium Chloride) 250 mls @ 250 mls/hr IV.SIG Q18H HELEN Lactulose (Lactulose Liq) 30 ml PO DAILY PRN PRN Reason: SEVERE CONSITIPATION Memantine (Namenda) 2.5 mg PO BID [facility] Last Admin: 07/12/18 22:39 Dose: 2.5 mg Metoprolol Tartrate (Lopressor) 25 mg PO INSIDE SALES ENGINEER [facility] Miscellaneous Information ([facility] Ordered Lab Info) 0 each OTHER ONCE ONE Stop: 07/15/18 18:46 Ondansetron HCl (Zofran Inj) 4 mg IV.PUSH Q6H PRN PRN Reason: NAUSEA OR VOMITING Pharmacy Profile Note (Vancomycin Consult Pharmacy) 1 each OTHER UNSCH PRN PRN Reason: Pharmacy to dose Senna/Docusate Sodium (Alejandra-Colace) 1 tab PO BID [facility] Last Admin: 07/12/18 22:39 Dose: Not Given Sennosides (Senokot) 17.2 mg PO Q12H PRN PRN Reason: Moderate Constipation Sodium Chloride (Ns Flush) 2 ml IV.FLUSH BID [facility] Last Admin: 07/13/18 10:04 Dose: 2 ml Sodium Chloride (Ns Flush) 2 ml IV.FLUSH PRN PRN PRN Reason: FLUSH AFTER USING IV ACCESS Allergies Allergy/AdvReac Type Severity Reaction Status Date / Time No Known Allergies Allergy Verified 07/08/18 12:45 Home Medications Medication Instructions Recorded Confirmed Type cyanocobalamin (vitamin B-12) 1,000 mcg PO BID 07/08/18 07/11/18 History memantine [Namenda] 2.5 mg PO BID 07/08/18 07/08/18 History Advance Directives Living Will: No Power of Superannuation Funds Manager Name: eugene Power of Superannuation Funds Manager Relationship to Patient: Spouse Physical Exam Vital Signs: Vital Signs - 24 hr 07/12/18 14:00 07/12/18 14:18 07/12/18 15:00 Temperature Pulse Rate 86 86 87 Respiratory Rate 29 H 21 43 H Blood Pressure 88/52 L Pulse Oximetry 07/12/18 15:18 07/12/18 16:00 07/12/18 20:00 Temperature 97.8 F 97.8 F Pulse Rate 92 H 91 H 85 Respiratory Rate 33 H 48 H 18 Blood Pressure 116/56 L 91/53 L Pulse Oximetry 93 L 07/12/18 21:15 07/12/18 23:30 07/12/18 23:55 Temperature 98.2 F Pulse Rate 89 84 90 Respiratory Rate 17 Blood Pressure 93/53 L Pulse Oximetry 92 L 07/13/18 03:53 07/13/18 04:09 07/13/18 07:55 Temperature 97.9 F 97.5 F L Pulse Rate 84 86 78 Respiratory Rate 17 19 Blood Pressure 98/65 L 134/94 H Pulse Oximetry 92 L 98 07/13/18 11:55 Temperature 97.5 F L Pulse Rate 84 Respiratory Rate 18 Blood Pressure 102/53 L Pulse Oximetry 97 I&O: Intake & Output 07/11/18 07/12/18 07/13/18 07/14/18 06:59 06:59 06:59 06:59 Intake Total 2750 / 2750 1856 / 1856 2650 / 2650 100 / 100 Output Total 1125 / 1125 500 / 500 125 / 125 Balance 1625 / 1625 1356 / 1356 2525 / 2525 100 / 100 Weight 53.4 kg 53.4 kg Physical Exam: CONSTITUTIONAL/GENERAL: This is an elderly patient, in no apparent distress. TUBES/LINES/DRAINS: PIV SKIN: No jaundice, rashes, or lesions. Ecchymoses on upper extremities. No wounds seen anteriorly. Skin temperature appropriate. Not diaphoretic. HEAD: Atraumatic. Normocephalic. EYES: Pupils equal and round and reactive. Extraocular motions intact. No scleral icterus. No injection or drainage. Fundi not examined. ENT: Hearing grossly normal. Nose without bleeding or purulent drainage. Moist oral mucosa NECK: Trachea midline. Supple, nontender. CARDIOVASCULAR: Regular rate and rhythm without murmurs, gallops, or rubs. No JVD. Peripheral pulses symmetric. RESPIRATORY/CHEST: Symmetric, unlabored respirations. Clear to auscultation. Breath sounds equal bilaterally. No wheezes, rales, or rhonchi. GASTROINTESTINAL: Abdomen soft, non-tender, nondistended. No guarding. Bowel sounds present. GENITOURINARY: Without palpable bladder distension. Gaming catheter in place. MUSCULOSKELETAL: Extremities without clubbing, cyanosis, or edema. No joint tenderness or effusion noted. No calf tenderness. No mottling or clubbing. LYMPHATICS: Did not assess NEUROLOGICAL: Awake, oriented to self only. Motor and sensory grossly within normal limits. Moves all extremities spontaneously PSYCHIATRIC: No obvious anxiety/depression. no apparent hallucinations or other psychotic thought process. Diagnostic Tests Laboratory: Laboratory Results - last 72 hr 07/11/18 07/11/18 07/11/18 04:47 04:47 11:00 WBC 13.9 H RBC 2.53 L Hgb 7.4 L Hct 22.2 L MCV 87.5 MCH 29.3 MCHC 33.4 RDW 14.4 Plt Count 266 MPV 9.1 Neut % (Auto) 75.3 H Lymph % (Auto) 12.0 [place] % (Auto) 12.2 H Eos % (Auto) 0.0 Baso % (Auto) 0.5 Neut # (Auto) 10.5 H Lymph # (Auto) 1.7 [place] # (Auto) 1.7 H Eos # (Auto) 0.0 Baso # (Auto) 0.1 WBC Differential . Differential Comment Auto diff final D-Dimer Quant (PE/DVT) Sodium 150 H Potassium 4.0 Chloride 117 H Carbon Dioxide 25.1 Anion Gap 8 BUN 35 H Creatinine 0.76 Estimated GFR 74 L POC Glucose Random Glucose 97 Lactic Acid Calcium 8.0 L Magnesium Urine Color Yellow Urine Clarity Hazy H Urine pH 6.0 Ur Specific [place] 1.024 Urine Protein 30 H Urine Glucose (UA) Negative Urine Ketones Trace H Urine Occult Blood Negative Urine Nitrate Negative Urine Bilirubin Negative Urine Urobilinogen 2.0 H Ur Leukocyte Esterase Large H Urine RBC 2 Urine WBC 21 H Ur Squamous Epith Cells 6 Urine Bacteria Many H Urine Mucus Few H Micro UA Comment Culture indicated Ur Microscopic Review Not Reportable Urine Culture Comments Culture indicated 07/12/18 07/12/18 07/12/18 04:53 04:53 11:10 WBC 13.3 H RBC 2.43 L Hgb 7.3 L Hct 21.0 L MCV 86.3 MCH 30.0 MCHC 34.7 RDW 14.3 Plt Count 302 MPV 8.8 Neut % (Auto) 73.8 H Lymph % (Auto) 12.3 [place] % (Auto) 13.2 H Eos % (Auto) 0.1 Baso % (Auto) 0.6 Neut # (Auto) 9.8 H Lymph # (Auto) 1.6 [place] # (Auto) 1.8 H Eos # (Auto) 0.0 Baso # (Auto) 0.1 WBC Differential . Differential Comment Auto diff final D-Dimer Quant (PE/DVT) Sodium 150 H Potassium 4.1 Chloride 117 H Carbon Dioxide 27.2 Anion Gap 6 BUN 32 H Creatinine 0.79 Estimated GFR 70 L POC Glucose Random Glucose 132 H Lactic Acid 1.6 Calcium 7.7 L Magnesium Urine Color Urine Clarity Urine pH Ur Specific [place] Urine Protein Urine Glucose (UA) Urine Ketones Urine Occult Blood Urine Nitrate Urine Bilirubin Urine Urobilinogen Ur Leukocyte Esterase Urine RBC Urine WBC Ur Squamous Epith Cells Urine Bacteria Urine Mucus Micro UA Comment Ur Microscopic Review Urine Culture Comments 07/12/18 07/12/18 07/13/18 11:33 14:05 09:40 WBC 15.3 H RBC 2.49 L Hgb 7.3 L Hct 22.2 L MCV 88.9 MCH 29.4 MCHC 33.1 RDW 14.4 Plt Count 375 MPV 9.0 Neut % (Auto) 78.4 H Lymph % (Auto) 12.1 [place] % (Auto) 8.9 H Eos % (Auto) 0.3 Baso % (Auto) 0.3 Neut # (Auto) 12.0 H Lymph # (Auto) 1.8 [place] # (Auto) 1.4 H Eos # (Auto) 0.1 Baso # (Auto) 0.0 WBC Differential . Differential Comment Auto diff final D-Dimer Quant (PE/DVT) 4.76 H Sodium Potassium Chloride Carbon Dioxide Anion Gap BUN Creatinine Estimated GFR POC Glucose 162 H Random Glucose Lactic Acid Calcium Magnesium Urine Color Urine Clarity Urine pH Ur Specific [place] Urine Protein Urine Glucose (UA) Urine Ketones Urine Occult Blood Urine Nitrate Urine Bilirubin Urine Urobilinogen Ur Leukocyte Esterase Urine RBC Urine WBC Ur Squamous Epith Cells Urine Bacteria Urine Mucus Micro UA Comment Ur Microscopic Review Urine Culture Comments 07/13/18 07/13/18 09:40 09:40 WBC RBC Hgb Hct MCV MCH MCHC RDW Plt Count MPV Neut % (Auto) Lymph % (Auto) [place] % (Auto) Eos % (Auto) Baso % (Auto) Neut # (Auto) Lymph # (Auto) [place] # (Auto) Eos # (Auto) Baso # (Auto) WBC Differential Differential Comment D-Dimer Quant (PE/DVT) Sodium 145 Potassium 3.5 Chloride 111 H Carbon Dioxide 26.6 Anion Gap 7 BUN 27 H Creatinine 0.91 Estimated GFR 60 L POC Glucose Random Glucose 114 H Lactic Acid Calcium 7.8 L Magnesium 2.1 Cancelled Urine Color Urine Clarity Urine pH Ur Specific [place] Urine Protein Urine Glucose (UA) Urine Ketones Urine Occult Blood Urine Nitrate Urine Bilirubin Urine Urobilinogen Ur Leukocyte Esterase Urine RBC Urine WBC Ur Squamous Epith Cells Urine Bacteria Urine Mucus Micro UA Comment Ur Microscopic Review Urine Culture Comments Result Diagrams: 07/13/18 09:40 07/13/18 09:40 Microbiology: Microbiology 07/12/18 11:05 Aerobic Blood Culture - Preliminary Blood - Peripheral No growth in 1 day Anaerobic Blood Culture - Final QNS - See aerobic report. 07/12/18 11:10 Aerobic Blood Culture - Preliminary Blood - Peripheral No growth in 1 day Anaerobic Blood Culture - Final QNS - See aerobic report. 07/11/18 11:00 Urine Culture - Final Clean Catch Urine 50-100,000 cfu/mL mixed uzma (probable contaminants) Imaging: Femur X-Ray 07/08/18 12:45 CONCLUSION: Comminuted and mildly displaced and mildly angulated intertrochanteric and proximal shaft fracture of the left femur. Tibia/Fibula X-Ray 07/08/18 12:45 CONCLUSION: Left tibia and fibula appear intact. Pelvis X-Ray 07/08/18 12:46 CONCLUSION: No evidence of pelvic fracture. Hip X-Ray 07/09/18 00:00 CONCLUSION: Fixation left intertrochanteric fracture. Chest X-Ray 07/12/18 09:17 CONCLUSION: Increasing consolidation left base new from comparison study. Mild interstitial edema. Chest CTA 07/13/18 00:00 CONCLUSION: 1. No evidence of pulmonary embolism. 2. Right perihilar mass measuring 3.8 x 4.6 x 3.1 cm is suspicious for bronchogenic carcinoma until proven otherwise. 3. Patchy opacity is noted within the right upper lobe and extends to the pleura. 4. Alveolar consolidation is noted involving the left lower lobe consistent with pneumonia and/or atelectasis. 5. Small left pleural effusion. 6. Multiple compression deformities involving the thoracic spine with underlying diffuse sclerosis involving the severely compressed vertebral bodies. 7. Scoliosis and degenerative changes of the thoracic spine. 8. Cardiomegaly and coronary artery calcification. Procedures: 07/08/18-intramedullary nailing of left subtrochanteric femur fracture. Patient/Family Conference Issues Discussed: * Palliative care role, purpose, approach * Additional medical, psychosocial, and spiritual history * Patients general health, functional status, and cognitive changes in the months leading up to the current hospitalization * Patient/family understanding of the current medical problems * Patient/family understanding of prognosis * Patients goals of care as best understood from advance directives and/or conversations and/or values * Current medical treatment options and benefits/burdens of those options * Likely scenarios comparing ongoing aggressive care with a transition to comfort measures only * Questions answered to the best of my ability * Palliative care contact information provided Assessment and Plan - Disease Oriented Problem List (1) Sepsis (2) Urinary tract infection (3) Atrial fibrillation with RVR (4) Closed fracture of left hip (5) Lewy body dementia (6) Protein calorie malnutrition - Symptom Scale (1) Pain Comment: Recent femur fracture and surgical intervention. . (2) Decreased oral intake 0-10 Scale: Unable to quantify (3) Dyspnea 0-10 Scale: Unable to quantify (4) Physical deconditioning 0-10 Scale: Unable to quantify Pertinent Non-Medical Issues: Psychosocial: Patient was born and raised in [place]. She moved to [place] 15 -17 years ago. Patient was twice and has been to her current for the past 58 years. Patient has 2 adult children, daughter Leonarda Bill- (Public Figure-Politician) and a son Angelica Rhoades. 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 Spiritual: Patient is Buddhist-declined head counselor to visit Legal: Never completed advanced directives. Ethical issues impacting care: None identified at this time Important Contacts: Health care proxy- Spouse-Eugene Wilhelm [phone] Daughter- Leonarda Bill Son- Angelica Rhoades Prognosis: Mrs. Wilhelm is a 77-year-old female with a medical history of severe Lewy body dementia, atrial fibrillation, breast cancer, and chronic obstructive pulmonary disease. Patient was brought into the emergency room on 07/08/18 for evaluation and treatment after she sustained a fall at home. Patient underwent intramedullary nailing of left subtrochanteric femur fracture.Clinical course complicated with sepsis, shortness of breath, and decreased oral intake. Given ongoing multiple comorbidities, patient remains at high risk for further complications, deterioration and decline. . Code Status: Full Code Plan: PLAN: Legal decision maker: Patient is oriented to self only with confusion. She has history of CVA Lewy body dementia. Patient is not able to participate in medical decision making. According to [place] statute, her spouse Melonie Knight will serve as a healthcare proxy medical decision maker. Goals: Aggressive. Addressed CODE STATUS, discussed CPR limitations, benefits and complications. Patient's spouse elected full code. He states that he is "not willing to let her go anytime soon". He would want everything to be done for her. After expressing concerns of patient's ongoing multiple comorbidities, patient's spouse states that if patient would end up on life support he would reevaluate code status and will only give up on her when he knows that she would not return to a normal state. Expressed concern regarding patient's decreased oral intake and possibility of a feeding tube if patient's intake does not improve. Patient spouse stated that he would be amenable to a feeding tube if patient`s intake does not improve. Patient spouse agreeable to patient going to rehabilitation after discharge. CODE STATUS: Full code SYMPTOMS: * Pain: Patient came in after a fall which she sustained a left femur fracture. Patient is status post intramedullary nailing of left subtrochanteric femur fracture. Currently not showing signs of pain. Patient`s spouse states that patient gets very agitated when given narcotics and does not want her to receive narcotics. He also believes that when patient receives acetaminophen "it causes A. fib with RVR". Continue to monitor pain and educating patient spouse on nonverbal signs of pain. * Dyspnea: Patient has had episode of hypoxia with O2 sats as low as 87%. Chest CTA 07/13 revealed a right perihilar mass measuring 3.8x4.6x3.1cm suspicious for bronchogenic carcinoma. Pulmonology consulted. Currently on RA with no respiratoy distress. * Decreased oral intake: Patient has had decreased oral intake. Dietitian consulted, will monitor medical course and p.o. intake to assess the need for supplements. Per spouse patient is selective to what she eats and if she was upper and lower dentures. Speech therapy following, recommending pured diet with thin liquids. Recommending swallow evaluation with patient's dentures in. * Physical deconditioning: Progressive. Patient has severe lower body dementia and has had multiple falls. Recently fell and had a left femur fracture. Physical therapy consulted, recommending PT at rehab. Patient's participation most likely limited due to cognition problems. Palliative care will continue to follow the patient during hospital course as condition evolves, to assist patient/decision-maker with understanding of their medical conditions, weighing benefits/burdens of treatment options, for clarification of goals of treatment. Additionally will assist with any symptoms of palliative concern Appreciation Thank you for the opportunity to participate in the care of Renée Wilhelm. Attestation Attestation: To help prompt me to consider important information that might be impacting today's encounter and assessment, information from prior notes written by myself or my colleagues may have been "brought forward" into today's note. My signature on this note, however, is an attestation that I personally performed the exam, history, and/or decision-making noted today, and, unless otherwise indicated, the interactions with patient, family, and staff as well as the review of records all occurred today. I also attest that the listed assessment and stated plan reflect my best clinical judgment today based on the combination of historical information, prior notes, and today's exam/ interactions. When time spent is documented, it refers only to time spent today by the signer, or if indicated, combined time spent today by collaborating physician/nurse practitioner.
[2018-07-13] MEDS: Vancomycin Inj 1,000 MG in Sodium Chlor 0.9% Inj 250 ML IV.SIG SCH (15:54)
[2018-07-13] MEDS: Senna/Docusate Sodium 8.6/50 MG Tablet PO SCH ×2 (17:49→20:50)
[2018-07-13] MEDS: Budesonide-Formoterol 80/4.5 MCG 6.9 GM Inhaler INH SCH (20:49)
[2018-07-13 21:05] LABS: ABG Base Excess 2.6 mmol/L (-2-2); ABG PCO2 31 mmHg (38-42); ABG PO2 89 mmHg (61-120)
--- NOTE | 2018-07-13 23:19 | P.PNCA ---
Subjective Interval history: No events overnight Heart rates controlled Medications and Allergies Active Medications: Active Medications Acetaminophen (Tylenol) 650 mg PO Q4H PRN PRN Reason: Temp > 100.4 Last Admin: 07/12/18 10:07 Dose: 650 mg Al Hydroxide/Mg Hydroxide (Milk Of Magnesia Liq) 30 ml PO Q12H PRN PRN Reason: Mild Constipation Albuterol (Duoneb Neb ([facility]la)) 1 ampul NEB Q6HR ALT NEB [facility] Bisacodyl (Dulcolax Supp) 10 mg RECTAL DAILY PRN PRN Reason: SEVERE CONSITIPATION Budesonide/Formoterol Fumarate (Symbicort 80/4.5 Mcg Inh) 1 puff INH BID [facility] Last Admin: 07/13/18 20:49 Dose: 1 puff Cyanocobalamin (Vitamin B12) 1,000 mcg PO BID [facility] Last Admin: 07/13/18 20:50 Dose: 1,000 mcg Diphenhydramine HCl (Benadryl) 25 mg PO Q6H PRN PRN Reason: ITCHING Enoxaparin Sodium (Lovenox Inj) 40 mg SQ DAILY [facility] Last Admin: 07/13/18 10:03 Dose: 40 mg Lactated Ringer's (Lr 1000 Ml Inj) 1,000 mls @ 30 mls/hr IV.SIG .Q24H [facility] Last Admin: 07/13/18 20:51 Dose: Not Given Cefazolin Sodium/Dextrose (Ancef 1 Gm Premix Inj) 1 gm in 50 mls @ 100 mls/hr IV.SIG Q8H [facility] Last Infusion: 07/13/18 19:33 Dose: Infused Dextrose (D5w Inj) 1,000 mls @ 84 mls/hr IV.CONT .[id number] [facility] Last Admin: 07/13/18 18:17 Dose: Not Given Piperacillin/Tazobactam/Dextrose (Zosyn 4.5 Gm Premix) 4.5 gm in 100 mls @ 200 mls/hr IV.SIG Q6H [facility] Last Infusion: 07/13/18 21:35 Dose: Infused Vancomycin HCl 1,000 mg/ (Sodium Chloride) 250 mls @ 250 mls/hr IV.SIG Q18H [facility] Last Infusion: 07/13/18 17:50 Dose: Infused Lactulose (Lactulose Liq) 30 ml PO DAILY PRN PRN Reason: SEVERE CONSITIPATION Memantine (Namenda) 2.5 mg PO BID [facility] Last Admin: 07/13/18 20:49 Dose: 2.5 mg Metoprolol Tartrate (Lopressor) 25 mg PO [facility] Miscellaneous Information ([facility] Ordered Lab Info) 0 each OTHER ONCE ONE Stop: 07/15/18 18:46 Ondansetron HCl (Zofran Inj) 4 mg IV.PUSH Q6H PRN PRN Reason: NAUSEA OR VOMITING Pharmacy Profile Note (Vancomycin Consult Pharmacy) 1 each OTHER UNSCH PRN PRN Reason: Pharmacy to dose Senna/Docusate Sodium (Alejandra-Colace) 1 tab PO BID [facility] Last Admin: 07/13/18 20:50 Dose: 1 tab Sennosides (Senokot) 17.2 mg PO Q12H PRN PRN Reason: Moderate Constipation Sodium Chloride (Ns Flush) 2 ml IV.FLUSH BID [facility] Last Admin: 07/13/18 20:51 Dose: Not Given Sodium Chloride (Ns Flush) 2 ml IV.FLUSH PRN PRN PRN Reason: FLUSH AFTER USING IV ACCESS Allergies Allergy/AdvReac Type Severity Reaction Status Date / Time No Known Allergies Allergy Verified 07/08/18 12:45 Home Medications Medication Instructions Recorded Confirmed Type cyanocobalamin (vitamin B-12) 1,000 mcg PO BID 07/08/18 07/11/18 History memantine [Namenda] 2.5 mg PO BID 07/08/18 07/08/18 History Physical Exam Vital signs: Vital Signs 07/12/18 23:30 07/12/18 23:55 07/13/18 03:53 Temperature 98.2 F Pulse Rate 84 90 84 Respiratory Rate 17 Blood Pressure 93/53 L Pulse Oximetry 92 L 07/13/18 04:09 07/13/18 07:55 07/13/18 11:55 Temperature 97.9 F 97.5 F L 97.5 F L Pulse Rate 86 78 84 Respiratory Rate 17 19 18 Blood Pressure 98/65 L 134/94 H 102/53 L Pulse Oximetry 92 L 98 97 07/13/18 13:15 07/13/18 15:50 07/13/18 19:43 Temperature 97.8 F 97.8 F 98.5 F Pulse Rate 86 87 84 Respiratory Rate 16 18 25 H Blood Pressure 116/60 116/60 124/58 L Pulse Oximetry 98 99 90 L 07/13/18 19:52 Temperature 99.1 F Pulse Rate Respiratory Rate Blood Pressure Pulse Oximetry Intake & Output 07/13/18 07/13/18 07/14/18 06:59 18:59 06:59 Intake Total 1420 / 1420 500 / 500 150 / 150 Balance 1420 / 1420 500 / 500 150 / 150 Weight 53.4 kg Intake: IV 1300 / 1300 500 / 500 150 / 150 D5W Inj 1,000 ML @ 84 mls/hr IV 1000 / 1000 .CONT .[id number] [facility] Rx#:[id number] Zosyn 4.5 GM Premix 4.5 gm In 200 / 200 200 / 200 100 / 100 100 ml @ 200 mls/hr IV.SIG Q6H [facility] Rx#:[id number] Vancomycin Inj 1,000 MG In NS 250 / 250 Inj 250 ML @ 250 mls/hr IV.SIG Q18H [facility] Rx#:[id number] Ancef 1 GM Premix Inj 1 gm In 100 / 100 50 / 50 50 / 50 50 ml @ 100 mls/hr IV.SIG Q8H [facility] Rx#:[id number] Oral 120 / 120 Other: # Voids 2 Date of Last Bowel Movement 07/09/18 07/13/18 # Bowel Movements 6 # Incontinent Bowel Movements 4 Narrative: GENERAL: Well-nourished, well-developed patient in NAD. Awake, alert. Does not answer questions appropriately. Will occasionally say her name or yes/no. SKIN: Warm and dry. No rash. HEENT: Normocephalic. Atraumatic. Pupils equal and round. Mucous membranes pink and moist. NECK: Supple. Trachea midline. Head leaning forward and to the left secondary to chronic scoliosis. CARDIOVASCULAR: Regular rate and rhythm. No murmur appreciated. Pacer at right upper chest. RESPIRATORY: No accessory muscle use. Clear to auscultation. Breath sounds equal bilaterally. GASTROINTESTINAL: Abdomen soft, non-tender, nondistended. Normoactive bowel sounds x4. MUSCULOSKELETAL: No obvious deformities. Extremities without clubbing, cyanosis , or edema. Left hip surgical dressing, CDI. NEUROLOGICAL: Awake and alert. Moving all extremities spontaneously. Difficult to understand, mostly moans. PSYCHIATRIC: insight and judgment limited. - Urinary Catheter Management Indwelling Urethral Catheter Cath placed during this visit: yes, but has since been removed by the nurse Reason for continuing: Decision to DC catheter Insertion date: 07/08/18 Insertion time: 15:58 Removal date: 07/11/18 Removal time: 06:30 Female External Cath placed during this visit: no Results 07/13/18 09:40 07/13/18 09:40 CBC 07/12/18 07/13/18 Range/Units 04:53 09:40 WBC 13.3 H 15.3 H (4.0-11.0) th/mm3 RBC 2.43 L 2.49 L (4.00-5.30) mil/mm3 Hgb 7.3 L 7.3 L (11.6-15.3) gm/dL Hct 21.0 L 22.2 L (35.0-46.0) % Plt Count 302 375 (150-450) th/mm3 Neut # (Auto) 9.8 H 12.0 H (1.8-7.7) th/mm3 Lymph # (Auto) 1.6 1.8 (1.0-4.8) th/mm3 [place]field # (Auto) 1.8 H 1.4 H (0.0-0.9) th/mm3 Eos # (Auto) 0.0 0.1 (0.0-0.4) th/mm3 Baso # (Auto) 0.1 0.0 (0.0-0.2) th/mm3 Comprehensive Metabolic Panel 07/12/18 07/13/18 Range/Units 04:53 09:40 Sodium 150 H 145 (136-145) meq/L Potassium 4.1 3.5 (3.5-5.1) meq/L Chloride 117 H 111 H (98-107) meq/L Carbon Dioxide 27.2 26.6 (21.0-32.0) meq/L BUN 32 H 27 H (7-18) mg/dL Creatinine 0.79 0.91 (0.50-1.00) mg/dL Calcium 7.7 L 7.8 L (8.5-10.1) mg/dL Intake and Output 07/13/18 07/13/18 07/14/18 14:59 22:59 06:59 Intake Total 200 / 200 450 / 450 Balance 200 / 200 450 / 450 Intake: IV 200 / 200 450 / 450 Zosyn 4.5 GM Premix 4.5 gm In 200 / 200 100 / 100 100 ml @ 200 mls/hr IV.SIG Q6H [facility] Rx#:[id number] Vancomycin Inj 1,000 MG In NS 250 / 250 Inj 250 ML @ 250 mls/hr IV.SIG Q18H [facility] Rx#:[id number] Ancef 1 GM Premix Inj 1 gm In 100 / 100 50 ml @ 100 mls/hr IV.SIG Q8H [facility] Rx#:[id number] Other: Date of Last Bowel Movement 07/13/18 # Bowel Movements 6 - Imaging and Cardiology Imaging: Impressions Chest X-Ray 07/12/18 09:17 CONCLUSION: Increasing consolidation left base new from comparison study. Mild interstitial edema. Chest CTA 07/13/18 00:00 CONCLUSION: 1. No evidence of pulmonary embolism. 2. Right perihilar mass measuring 3.8 x 4.6 x 3.1 cm is suspicious for bronchogenic carcinoma until proven otherwise. 3. Patchy opacity is noted within the right upper lobe and extends to the pleura. 4. Alveolar consolidation is noted involving the left lower lobe consistent with pneumonia and/or atelectasis. 5. Small left pleural effusion. 6. Multiple compression deformities involving the thoracic spine with underlying diffuse sclerosis involving the severely compressed vertebral bodies. 7. Scoliosis and degenerative changes of the thoracic spine. 8. Cardiomegaly and coronary artery calcification. Assessment and Plan - Assessment (1) Lung mass Code(s): R91.8 - Other nonspecific abnormal finding of lung field Status: Acute (2) Closed fracture of left hip Code(s): S72.002A - Fracture of unspecified part of neck of left femur, initial encounter for closed fracture Status: Acute (3) Lewy body dementia Code(s): G31.83 - Dementia with Lewy bodies; F02.80 - Dementia in other diseases classified elsewhere without behavioral disturbance Status: Acute (4) Atrial fibrillation with RVR Code(s): I48.91 - Unspecified atrial fibrillation Status: Acute (5) Protein calorie malnutrition Code(s): E46 - Unspecified protein-calorie malnutrition Status: Acute (6) Shortness of breath Code(s): R06.02 - Shortness of breath Status: Acute - Plan 1) AFib with RVR Rates now controlled Atrial pacing would like to avoid AV alina blocking agents as "she's not needed them in the past" Not an anticoagulation candidate due to multiple falls 2) Hip fracture s/p nailing 3) Lung mass Pulmonary seeing (2) Closed fracture of left hip Qualifiers: Encounter type: initial encounter Qualified Code(s): S72.002A - Fracture of unspecified part of neck of left femur, initial encounter for closed fracture
[2018-07-14 00:27] LABS: Hematocrit 21.4 % (35.0-46.0)
[2018-07-14 00:41] LABS: Hemoglobin 6.9 gm/dL (11.6-15.3)
[2018-07-14] MEDS ORDERED: Acetaminophen 325 MG Tablet PO PRN (01:19)
[2018-07-14] MEDS ORDERED: Sodium Chlor 0.9% Inj 250 ML IV.SIG SCH (02:00)
[2018-07-14] MEDS: Piperacil/Tazo 4.5 GM Premix 4.5 GM/100 ML BAG IV.SIG SCH ×4 (02:13→21:32)
[2018-07-14] MEDS: ceFAZolin 1 GM Premix Inj 1 GM/50 ML FROZ.PIGGY IV.SIG SCH ×3 (02:13→17:48)
--- NOTE | 2018-07-14 07:21 | MB ---
cc: Alexander Wagner MD DATE: 07/13/2018 REASON FOR CONSULTATION: Lung mass. HISTORY OF PRESENT ILLNESS: This is a 77-year-old lady who apparently had a fall at home due to poor balance and fell and fractured her left femur. The patient was brought to the hospital on 07/08/2018 and has been seen by orthopedics and she also was noted to have atrial fibrillation. She underwent repair of the left subtrochanteric femoral fracture with intramedullary nail on the left and has been on the post-surgical unit and seems to be in some pain. Yesterday, she was found to have atrial fibrillation with rapid ventricular response and has been placed on digoxin and Cardizem, which has been discontinued presently. The patient is a poor historian, unable to provide any meaningful details. She denies any cough, chest pains or wheezing. She did go for a CTA of the chest earlier today and reportedly the CTA showed no evidence of pulmonary emboli, but had a right perihilar mass measuring 4.6 x 3.8 cm and patchy right upper lobe infiltrates with consolidation in the left lower lobe, as well as a small effusion on the left. Also had multiple compression deformities of the thoracic spine and scoliosis. Presently, she is on vancomycin and Zosyn for pneumonia and is on nebulized bronchodilators. PAST MEDICAL HISTORY: The patient's past history has included history for breast cancer with lumpectomy, history for hysterectomy and she also has dementia and a permanent pacemaker in place. She has had a history of atrial ablation. FAMILY HISTORY: Significant for hypertension and heart disease. HABITS: The patient was a smoker up to 1 pack per day for over 30 years. Alcohol use unknown. ALLERGIES: No significant drug allergies. REVIEW OF SYSTEMS: The patient is unable to provide any significant details. She is in some pain, seems to be coughing, and has mild wheezing and orthopnea. PHYSICAL EXAMINATION: GENERAL: This demented, elderly white female, who is in bed, but no significant distress. VITAL SIGNS: Blood pressure 110/60, pulse 90, respirations 16, temperature 97.5. HEENT: Head is normocephalic. Pupils are reactive. Sclerae are clear. Throat is clear. NECK: Supple, no bruits or thyroid enlargement or lymphadenopathy. CHEST: Distant breath sounds with expiratory wheezes bilaterally. No definite crackles. HEART: Sounds are irregular, S1 and S2. No murmur. ABDOMEN: Soft, nontender. Bowel sounds are faint. No organomegaly. EXTREMITIES: No cyanosis or edema. Muscle wasting noted. The patient does withdraw to stimuli and she is awake. SKIN: Was dry and cool. RECTAL: Deferred. IMPRESSION: 1. Status post open reduction and internal fixation of left femoral fracture, intertrochanteric. 2. Chronic obstructive pulmonary disease. 3. Left upper lobe lung mass, rule out malignancy. 4. Atrial fibrillation and . 5. Dementia. PLAN: The patient will be placed on O2 at 3 liters. We will also get a followup chest x-ray. Place her on nebulized DuoNeb solution q.i.d. p.r.n. and also discuss with the family of biopsy of the lung mass could be attempted when she is clinically stable. Physical therapy is being given and incentive spirometry will be added every 6 hours if she can cooperate. I will review and discuss the case with you. Dr. Narayan, thank you for this consultation. Alexander Wagner MD VJD/juan , 08:09 PM , 08:23 PM
[2018-07-14] MEDS: Vancomycin Inj 1,000 MG in Sodium Chlor 0.9% Inj 250 ML IV.SIG SCH (07:43)
[2018-07-14] MEDS: Dextrose 5% in Water Inj 1,000 ML IV.CONT SCH ×2 (09:20→22:59)
[2018-07-14] MEDS: Senna/Docusate Sodium 8.6/50 MG Tablet PO SCH ×2 (09:23→21:32)
[2018-07-14] MEDS: Budesonide-Formoterol 80/4.5 MCG 6.9 GM Inhaler INH SCH ×2 (09:26→21:35)
--- NOTE | 2018-07-14 10:17 | P.PN ---
Subjective Interval history: Follow up for dementia, UTI, HCAP, hip fx s/p intramedullary nail, afib with RVR. The patient is much more awake, alert, and speaking better today. I am able to understand answers to some questions. She is able to tell me her full name. Not oriented to place/time. She says "I don't want to be in this room anymore", although she is unable to further elaborate. She denies any pain. Still with minimal oral intake per nursing. Physical Exam Vital signs: Vital Signs 07/13/18 11:55 07/13/18 13:15 07/13/18 15:50 Temperature 97.5 F L 97.8 F 97.8 F Pulse Rate 84 86 87 Respiratory Rate 18 16 18 Blood Pressure 102/53 L 116/60 116/60 Pulse Oximetry 97 98 99 07/13/18 19:43 07/13/18 19:52 07/13/18 22:00 Temperature 98.5 F 99.1 F Pulse Rate 84 Respiratory Rate 25 H Blood Pressure 124/58 L Pulse Oximetry 90 L 96 07/14/18 00:29 07/14/18 00:30 07/14/18 01:10 Temperature 99.3 F Pulse Rate 71 84 Respiratory Rate 16 17 Blood Pressure 115/55 L Pulse Oximetry 96 97 07/14/18 04:15 07/14/18 04:34 07/14/18 04:35 Temperature 98.6 F 98.3 F 98.3 F Pulse Rate 83 83 83 Respiratory Rate 17 20 20 Blood Pressure 136/62 131/62 131/62 Pulse Oximetry 94 L 97 07/14/18 07:30 07/14/18 07:49 Temperature 98.9 F Pulse Rate 78 Respiratory Rate 16 Blood Pressure Pulse Oximetry 94 L Intake & Output 07/13/18 07/14/18 07/14/18 18:59 06:59 18:59 Intake Total 1500 / 1500 600 / 600 650 / 650 Balance 1500 / 1500 600 / 600 650 / 650 Weight 52.8 kg Intake: IV 1500 / 1500 300 / 300 250 / 250 D5W Inj 1,000 ML @ 84 mls/hr IV 1000 / 1000 .CONT .[id number] [facility] Rx#:[id number] Zosyn 4.5 GM Premix 4.5 gm In 200 / 200 200 / 200 100 ml @ 200 mls/hr IV.SIG Q6H [facility] Rx#:[id number] Vancomycin Inj 1,000 MG In NS 250 / 250 250 / 250 Inj 250 ML @ 250 mls/hr IV.SIG Q18H [facility] Rx#:[id number] Ancef 1 GM Premix Inj 1 gm In 50 / 50 100 / 100 50 ml @ 100 mls/hr IV.SIG Q8H [facility] Rx#:[id number] Oral 300 / 300 Intake (Blood Product) Amt 0 / 0 400 / 400 Rbc As-3 Leukoreduced Unit 0 / 0 400 / 400 [id number] Other: # Incontinent Voids 2 Date of Last Bowel Movement 07/13/18 07/13/18 # Bowel Movements 6 # Incontinent Bowel Movements 1 Narrative: GENERAL: Thin chronically ill appearing elderly female patient in NAD. Awake, alert. Will occasionally say her name or yes/no. SKIN: Warm and dry. No rash. HEENT: Normocephalic. Atraumatic. Pupils equal and round. Mucous membranes pink and moist. NECK: Supple. Trachea midline. Head leaning forward and to the left secondary to chronic scoliosis. CARDIOVASCULAR: Regular rate and rhythm. No murmur appreciated. Pacer at right upper chest. RESPIRATORY: No accessory muscle use. Clear to auscultation. Breath sounds equal bilaterally. GASTROINTESTINAL: Abdomen soft, non-tender, nondistended. Normoactive bowel sounds x4. MUSCULOSKELETAL: No obvious deformities. Extremities without clubbing, cyanosis , or edema. Left hip surgical dressing, CDI. NEUROLOGICAL: Awake and alert. Moving all extremities spontaneously. Difficult to understand. PSYCHIATRIC: insight and judgment limited. - Urinary Catheter Management Indwelling Urethral Catheter Cath placed during this visit: yes, but has since been removed by the nurse Reason for continuing: Decision to DC catheter Insertion date: 07/08/18 Insertion time: 15:58 Removal date: 07/11/18 Removal time: 06:30 Female External Cath placed during this visit: no Results - Labs CBC & Chem 7: 07/14/18 00:03 07/13/18 09:40 Laboratory Results - last 24 hr 07/13/18 07/13/18 07/14/18 09:40 20:52 00:03 Hgb 6.9 L* Hct 21.4 L Puncture Site Right radial Patient Temperature 98.6 O2 Saturation 95 ABG pH 7.52 H* ABG pCO2 31 L ABG pO2 89 ABG HCO3 26 ABG O2 Content 8.7 L ABG Base Excess 2.6 H ABG Methemoglobin 0.8 Paras Test Present Hemoglobin 6.4 L* Carboxyhemoglobin 2.6 O2 Delivery Device Nasal cannula Critical Value Yes Sodium 145 Potassium 3.5 Chloride 111 H Carbon Dioxide 26.6 Anion Gap 7 BUN 27 H Creatinine 0.91 Estimated GFR 60 L Random Glucose 114 H Calcium 7.8 L Magnesium 2.1 Blood Type Blood Type Recheck Antibody Screen MTS Gel Crossmatch 07/14/18 07/14/18 01:35 01:40 Hgb Hct Puncture Site Patient Temperature O2 Saturation ABG pH ABG pCO2 ABG pO2 ABG HCO3 ABG O2 Content ABG Base Excess ABG Methemoglobin Paras Test Hemoglobin Carboxyhemoglobin O2 Delivery Device Critical Value Sodium Potassium Chloride Carbon Dioxide Anion Gap BUN Creatinine Estimated GFR Random Glucose Calcium Magnesium Blood Type B Positive Cancelled Blood Type Recheck Required Cancelled Antibody Screen Negative Cancelled MTS Gel Crossmatch See Detail Microbiology 07/12/18 11:05 Blood - Peripheral Aerobic Blood Culture - Preliminary No growth in 1 day 07/12/18 11:05 Blood - Peripheral Anaerobic Blood Culture - Final QNS - See aerobic report. 07/12/18 11:10 Blood - Peripheral Aerobic Blood Culture - Preliminary No growth in 1 day 07/12/18 11:10 Blood - Peripheral Anaerobic Blood Culture - Final QNS - See aerobic report. 07/11/18 11:00 Clean Catch Urine Urine Culture - Final 50-100,000 cfu/mL mixed uzma (probable contaminants ) - Imaging Impressions Chest CTA 07/13/18 00:00 CONCLUSION: 1. No evidence of pulmonary embolism. 2. Right perihilar mass measuring 3.8 x 4.6 x 3.1 cm is suspicious for bronchogenic carcinoma until proven otherwise. 3. Patchy opacity is noted within the right upper lobe and extends to the pleura. 4. Alveolar consolidation is noted involving the left lower lobe consistent with pneumonia and/or atelectasis. 5. Small left pleural effusion. 6. Multiple compression deformities involving the thoracic spine with underlying diffuse sclerosis involving the severely compressed vertebral bodies. 7. Scoliosis and degenerative changes of the thoracic spine. 8. Cardiomegaly and coronary artery calcification. - Procedures 07/09/18- Intramedullary nail left subtrochanteric femur fracture by Dr. Herrera Assessment and Plan - Plan 77-year-old female with Lewy body dementia status post fall at home. Left femur fracture s/p mechanical fall at home -xrays reviewed, consistent with comminuted left intertrochanteric hip fracture. Tib-fib x-ray is normal and pelvis intact. -orthopedics consulted -S/P Intramedullary nail left subtrochanteric femur fracture, Dr. Herrera 07/16 -Follow up with Dr. Herrera in 2 weeks -Tylenol for pain. Avoid narcotics -PT recommends Rehab placement Afib with RVR: patient with hx of ablation and pacemaker, not on any rate controlling medications at home -per pacer needs to be checked in Nov -[facility] performed pacer check on 07/11, unremarkable, paced rhythm at 80bpm -monitor on telemetry -s/p Halicat on 07/12, given IV Cardizem 10mg x2, transferred to [facility], now back in normal sinus paced rhythm -Cardiology consulted, discussed with Dr. Aleman, appreciate assistance, no further intervention -continue to monitor Hypoxia: acute, patient with episodes of hypoxia as low as 87%. Suspect secondary to pneumonia and lung mass. -D-dimer elevated at 4.76, chest CTA showed mass and pneumonia, no PE, see below -pulmonology consulted, started on duonebs q6h, Symbicort bid -O2 as needed Sepsis: acute. Suspect secondary to UTI and HCAP -patient meets sepsis with WBC 13K, tachycardia, fever 100.5 -lactic acid 1.6 -UA remarkable for UTI however urine culture with mixed uzma -Blood cultures with NGTD -Repeat stat CXR 07/12 shows worsening consolidation -Chest CTA 07/13 showed perihilar mass and consolidation of LLL consistent with pneumonia -Changed antibiotics to IV Zosyn and IV Vanco with pharmacy consult -pulmonology following Perihilar Mass: concern for bronchogenic carcinoma -Chest CTA 07/13 showed Right perihilar mass measuring 3.8 x 4.6 x 3.1 cm is suspicious for bronchogenic carcinoma until proven otherwise -Consulted pulmonology and palliative care, greatly appreciate assistance Lewy body dementia with failure to thrive, malnutrition -Continue with vitamin B12 1000mcg bid, Namenda 2.5 twice daily -Consulted palliative care for goals of treatment, per goals remain aggressive at this time Hypernatremia: Na 150 -patient was previously on IVF with NS, changed to Dextrose 5% in water -monitor daily BMP -repeat Na 145 today, improved Protein Calorie Malnutrition with Poor Oral Intake: suspect multifactorial with dementia, recent hip fracture, infection. -speech therapy following -dietitian consulted for calorie count -add Ensure to meals -patient may need feeding tube placed, would agree to this Acute Normocytic Anemia: Hgb dropped to 6.9 today 07/14 -given 1u pRBC transfusion -check stool hemoccult -add iron studies if possible -repeat CBC in am DVT Prophylaxis: Lovenox sq Discharge Planning: Not yet ready for discharge. Will likely be here another 3-5days.
--- NOTE | 2018-07-14 12:18 | P.DIET ---
Nutritional Evaluation Type of nutrition evaluation: initial Nutrition screening: MDC (Poor PO Intake) Screening comments: Halicat to [facility] today. Subjective Subjective Comments: Dementia Objective - Diagnosis L hip Fx - Objective % IBW: 94 (IBW = 94%) Body Weight Used for Calculations: Actual (53.4 kg) Energy Needs - Lower Range (kCal/kg): 28 Energy Needs - Upper Range (kCal/kg): 32 Lower Limit kCal/kg (kCals): 1,495 Upper Limit kCal/kg (kCals): 1,709 Lower Limit Protein Factor (Grams per Kg): 1.0 Upper Limit Protein Factor (Grams per Kg): 1.5 Lower Protein Needs (Protein): 53 Upper Protein Needs (Protein): 80 Fluid Factor (ml/kg): 32 Estimated Fluid Needs (ml): 1,709 Dietitian Reviewed in Medical Record: Current diet, Curent medications, Intake & Output, Labs, Medical history Diet Order: Regular Assessment Assessment: Pt reported a poor appetite and currently consuming only 0-25% of food most meals. Per RN pt needs feeding assistance. MDC for calorie counting received on 07/13. Calorie counting will start from 07/14 to 07/16 and to be collected on . Monitor PO and supplement intake. Recommendations: 1. MDC for calorie counting received on 07/13. Calorie counting will start from 07/14 to 07/16 and to be collected on 07/17 2. Encourage and assist in PO intake 3. Monitor PO and supplement intake Dietitian to Monitor: Lab values, Intake & Output, Diet tolerance, Weight change , PO Intake, Medical course
--- NOTE | 2018-07-14 12:53 | P.PNPAL ---
Reason for Visit Reason for visit: a. To assist with evaluation and management of symptoms including: Pain, decreased oral intake, physical deconditioning b. To assist medical decision maker(s) with: better understanding of current medical conditions; weighing benefits/burdens of medical treatment options; making medical treatment decisions. Subjective Subjective/Interval History: Patient seen and examined in her room. Awake, alert and oriented to self only. Patient mumbling incomprehensible words. Patient is not showing any signs of discomfort at this time. Caloric count in progress. Pulmonology Dr. Sinha consulted to evaluate and manage patient with a lung mass, recommended biopsy of lung mass when patient is clinically stable. Speech therapy reevaluated patient today for swallow eval, recommended n.p.o. Physical therapy following, recommending PT at rehab. Telephone call to patient`s spouse-No response-Unable to leave a voice message. Met with patient's Eugene Wilhelm (HCP) later on at 1630 hrs at bedside. Verified telephone number. Correct telephone number ([phone]) will be entered under contact information Discussed lung mass noted on patient' s chest CTA. Patient's stated that patient has had the mass on her lung for many years and would not want her to undergo biopsy of the lung mass. Patient`s spouse states that all he wants is for patient to be able to eat more and have physical therapy. He is hopeful that patient will retain to her baseline which is ambulating. Expressed concern that patient may have complications that may hinder her from returning to her baseline state given recent surgery, progressive physical deconditioning, decreased oral intake and limited cognition due to a progressive condition. Goals remain aggressive though patient`s spouse does not want a lung biopsy performed. Family/Friend Interactions: See interval note. Advance Directives Living Will: Never completed Health Care Surrogate: Never completed Durable Power of Bead Wire Insulator: Never completed Health Care Surrogate Name and Number: HCP-Spouse- Eugene Wilhelm [phone] Objective Vital Signs: Vital Signs 07/13/18 13:15 07/13/18 15:50 07/13/18 19:43 Temperature 97.8 F 97.8 F 98.5 F Pulse Rate 86 87 84 Respiratory Rate 16 18 25 H Blood Pressure 116/60 116/60 124/58 L Pulse Oximetry 98 99 90 L 07/13/18 19:52 07/13/18 22:00 07/14/18 00:29 Temperature 99.1 F Pulse Rate 71 Respiratory Rate 16 Blood Pressure Pulse Oximetry 96 07/14/18 00:30 07/14/18 01:10 07/14/18 04:15 Temperature 99.3 F 98.6 F Pulse Rate 84 83 Respiratory Rate 17 17 Blood Pressure 115/55 L 136/62 Pulse Oximetry 96 97 94 L 07/14/18 04:34 07/14/18 04:35 07/14/18 07:30 Temperature 98.3 F 98.3 F 98.9 F Pulse Rate 83 83 Respiratory Rate 20 20 Blood Pressure 131/62 131/62 Pulse Oximetry 97 07/14/18 07:49 Temperature Pulse Rate 78 Respiratory Rate 16 Blood Pressure Pulse Oximetry 94 L Intake & Output 07/13/18 07/14/18 07/14/18 18:59 06:59 18:59 Intake Total 1500 / 1500 600 / 600 750 / 750 Balance 1500 / 1500 600 / 600 750 / 750 Weight 52.8 kg Intake: IV 1500 / 1500 300 / 300 350 / 350 D5W Inj 1,000 ML @ 84 mls/hr IV 1000 / 1000 .CONT .[id number] HELEN Rx#:[id number] Zosyn 4.5 GM Premix 4.5 gm In 200 / 200 200 / 200 100 / 100 100 ml @ 200 mls/hr IV.SIG Q6H HELEN Rx#:[id number] Vancomycin Inj 1,000 MG In NS 250 / 250 250 / 250 Inj 250 ML @ 250 mls/hr IV.SIG Q18H HELEN Rx#:[id number] Ancef 1 GM Premix Inj 1 gm In 50 / 50 100 / 100 50 ml @ 100 mls/hr IV.SIG Q8H HELEN Rx#:[id number] Oral 300 / 300 Intake (Blood Product) Amt 0 / 0 400 / 400 Rbc As-3 Leukoreduced Unit 0 / 0 400 / 400 [id number] Other: # Incontinent Voids 2 Date of Last Bowel Movement 07/13/18 07/13/18 07/14/18 # Bowel Movements 6 # Incontinent Bowel Movements 1 Physical Exam: CONSTITUTIONAL/GENERAL: This is an elderly patient, in no apparent distress. TUBES/LINES/DRAINS: PIV, SKIN: No jaundice, rashes, or lesions. Ecchymoses on upper extremities. No wounds seen anteriorly. Normothermic. HEAD: Atraumatic. Normocephalic. EYES: PERRLA. No scleral icterus. No injection or drainage. Fundi not examined. ENT: Hearing grossly normal. Nose without bleeding or purulent drainage. Moist oral mucosa NECK: Trachea midline. Supple, nontender. CARDIOVASCULAR: Irregular rate and rhythm. No JVD. Pacemaker to Right chest wall. Peripheral pulses symmetric. RESPIRATORY/CHEST: Symmetric, unlabored respirations. Diminished breath sounds. No wheezes, rales, or rhonchi. GASTROINTESTINAL: Abdomen soft, non-tender, nondistended. No guarding. Bowel sounds present. GENITOURINARY: Without palpable bladder distension. Gaming catheter in place. MUSCULOSKELETAL: Extremities without clubbing, cyanosis, or edema. No joint tenderness or effusion noted. No mottling or clubbing. LYMPHATICS: Did not assess NEUROLOGICAL: Awake, oriented to self only. Mumbling incomprehensible words. Does not follow simple commands. PSYCHIATRIC: No obvious anxiety/depression. no apparent hallucinations or other psychotic thought process. Diagnostic Tests Laboratory: Laboratory Results - last 72 hr 07/12/18 07/12/18 07/12/18 04:53 04:53 11:10 WBC 13.3 H RBC 2.43 L Hgb 7.3 L Hct 21.0 L MCV 86.3 MCH 30.0 MCHC 34.7 RDW 14.3 Plt Count 302 MPV 8.8 Neut % (Auto) 73.8 H Lymph % (Auto) 12.3 Mccormick % (Auto) 13.2 H Eos % (Auto) 0.1 Baso % (Auto) 0.6 Neut # (Auto) 9.8 H Lymph # (Auto) 1.6 Mccormick # (Auto) 1.8 H Eos # (Auto) 0.0 Baso # (Auto) 0.1 WBC Differential . Differential Comment Auto diff final D-Dimer Quant (PE/DVT) Puncture Site Patient Temperature O2 Saturation ABG pH ABG pCO2 ABG pO2 ABG HCO3 ABG O2 Content ABG Base Excess ABG Methemoglobin Paras Test Hemoglobin Carboxyhemoglobin O2 Delivery Device Critical Value Sodium 150 H Potassium 4.1 Chloride 117 H Carbon Dioxide 27.2 Anion Gap 6 BUN 32 H Creatinine 0.79 Estimated GFR 70 L POC Glucose Random Glucose 132 H Lactic Acid 1.6 Calcium 7.7 L Magnesium Blood Type Blood Type Recheck Antibody Screen MTS Gel Crossmatch 07/12/18 07/12/18 07/13/18 11:33 14:05 09:40 WBC 15.3 H RBC 2.49 L Hgb 7.3 L Hct 22.2 L MCV 88.9 MCH 29.4 MCHC 33.1 RDW 14.4 Plt Count 375 MPV 9.0 Neut % (Auto) 78.4 H Lymph % (Auto) 12.1 Mccormick % (Auto) 8.9 H Eos % (Auto) 0.3 Baso % (Auto) 0.3 Neut # (Auto) 12.0 H Lymph # (Auto) 1.8 Mccormick # (Auto) 1.4 H Eos # (Auto) 0.1 Baso # (Auto) 0.0 WBC Differential . Differential Comment Auto diff final D-Dimer Quant (PE/DVT) 4.76 H Puncture Site Patient Temperature O2 Saturation ABG pH ABG pCO2 ABG pO2 ABG HCO3 ABG O2 Content ABG Base Excess ABG Methemoglobin Paras Test Hemoglobin Carboxyhemoglobin O2 Delivery Device Critical Value Sodium Potassium Chloride Carbon Dioxide Anion Gap BUN Creatinine Estimated GFR POC Glucose 162 H Random Glucose Lactic Acid Calcium Magnesium Blood Type Blood Type Recheck Antibody Screen MTS Gel Crossmatch 07/13/18 07/13/18 07/13/18 09:40 09:40 20:52 WBC RBC Hgb Hct MCV MCH MCHC RDW Plt Count MPV Neut % (Auto) Lymph % (Auto) Mccormick % (Auto) Eos % (Auto) Baso % (Auto) Neut # (Auto) Lymph # (Auto) Mccormick # (Auto) Eos # (Auto) Baso # (Auto) WBC Differential Differential Comment D-Dimer Quant (PE/DVT) Puncture Site Right radial Patient Temperature 98.6 O2 Saturation 95 ABG pH 7.52 H* ABG pCO2 31 L ABG pO2 89 ABG HCO3 26 ABG O2 Content 8.7 L ABG Base Excess 2.6 H ABG Methemoglobin 0.8 Paras Test Present Hemoglobin 6.4 L* Carboxyhemoglobin 2.6 O2 Delivery Device Nasal cannula Critical Value Yes Sodium 145 Potassium 3.5 Chloride 111 H Carbon Dioxide 26.6 Anion Gap 7 BUN 27 H Creatinine 0.91 Estimated GFR 60 L POC Glucose Random Glucose 114 H Lactic Acid Calcium 7.8 L Magnesium 2.1 Cancelled Blood Type Blood Type Recheck Antibody Screen MTS Gel Crossmatch 07/14/18 07/14/18 07/14/18 00:03 01:35 01:40 WBC RBC Hgb 6.9 L* Hct 21.4 L MCV MCH MCHC RDW Plt Count MPV Neut % (Auto) Lymph % (Auto) Mccormick % (Auto) Eos % (Auto) Baso % (Auto) Neut # (Auto) Lymph # (Auto) Mccormick # (Auto) Eos # (Auto) Baso # (Auto) WBC Differential Differential Comment D-Dimer Quant (PE/DVT) Puncture Site Patient Temperature O2 Saturation ABG pH ABG pCO2 ABG pO2 ABG HCO3 ABG O2 Content ABG Base Excess ABG Methemoglobin Paras Test Hemoglobin Carboxyhemoglobin O2 Delivery Device Critical Value Sodium Potassium Chloride Carbon Dioxide Anion Gap BUN Creatinine Estimated GFR POC Glucose Random Glucose Lactic Acid Calcium Magnesium Blood Type B Positive Cancelled Blood Type Recheck Required Cancelled Antibody Screen Negative Cancelled MTS Gel Crossmatch See Detail Result Diagrams: 07/15/18 07:35 07/15/18 07:35 Microbiology: Microbiology 07/12/18 11:05 Aerobic Blood Culture - Preliminary Blood - Peripheral No growth in 2 days Anaerobic Blood Culture - Final QNS - See aerobic report. 07/12/18 11:10 Aerobic Blood Culture - Preliminary Blood - Peripheral No growth in 2 days Anaerobic Blood Culture - Final QNS - See aerobic report. 07/11/18 11:00 Urine Culture - Final Clean Catch Urine 50-100,000 cfu/mL mixed uzma (probable contaminants) Imaging: Femur X-Ray 07/08/18 12:45 CONCLUSION: Comminuted and mildly displaced and mildly angulated intertrochanteric and proximal shaft fracture of the left femur. Tibia/Fibula X-Ray 07/08/18 12:45 CONCLUSION: Left tibia and fibula appear intact. Pelvis X-Ray 07/08/18 12:46 CONCLUSION: No evidence of pelvic fracture. Hip X-Ray 07/09/18 00:00 CONCLUSION: Fixation left intertrochanteric fracture. Chest X-Ray 07/12/18 09:17 CONCLUSION: Increasing consolidation left base new from comparison study. Mild interstitial edema. Chest CTA 07/13/18 00:00 CONCLUSION: 1. No evidence of pulmonary embolism. 2. Right perihilar mass measuring 3.8 x 4.6 x 3.1 cm is suspicious for bronchogenic carcinoma until proven otherwise. 3. Patchy opacity is noted within the right upper lobe and extends to the pleura. 4. Alveolar consolidation is noted involving the left lower lobe consistent with pneumonia and/or atelectasis. 5. Small left pleural effusion. 6. Multiple compression deformities involving the thoracic spine with underlying diffuse sclerosis involving the severely compressed vertebral bodies. 7. Scoliosis and degenerative changes of the thoracic spine. 8. Cardiomegaly and coronary artery calcification. Procedures: 07/08/18-intramedullary nailing of left subtrochanteric femur fracture. Assessment and Plan - Disease Oriented Problem List (1) Sepsis (2) Urinary tract infection (3) Atrial fibrillation with RVR (4) Closed fracture of left hip (5) Lewy body dementia (6) Protein calorie malnutrition - Symptom Scale (1) Pain Comment: Recent femur fracture and surgical intervention. . (2) Decreased oral intake 0-10 Scale: Unable to quantify (3) Dyspnea 0-10 Scale: Unable to quantify (4) Physical deconditioning 0-10 Scale: Unable to quantify Pertinent Non-Medical Issues: Psychosocial: Patient was born and raised in [place]. She moved to [place] 15 -17 years ago. Patient was twice and has been to her current for the past 58 years. Patient has 2 adult children, daughter Leonarda Bill- (Public Figure-Politician) and a son Angelica Rhoades. 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 Spiritual: Patient is Restorationist-declined medical record specialist to visit Legal: Never completed advanced directives. Ethical issues impacting care: None identified at this time Important Contacts: Health care proxy- Spouse-Eugene Wilhelm [phone] Daughter- Leonarda Bill Son- Angelica Rhoades Prognosis: Mrs. Wilhelm is a 77-year-old female with a medical history of severe Lewy body dementia, atrial fibrillation, breast cancer, and chronic obstructive pulmonary disease. Patient was brought into the emergency room on 07/08/18 for evaluation and treatment after she sustained a fall at home. Patient underwent intramedullary nailing of left subtrochanteric femur fracture.Clinical course complicated with sepsis, shortness of breath, and decreased oral intake. Given ongoing multiple comorbidities, patient remains at high risk for further complications, deterioration and decline. . Code Status: Full Code Plan: PLAN: Legal decision maker: Patient is oriented to self only with confusion. She has Lewy body dementia. Patient is not able to participate in medical decision making and will most likely not regain that capacity. According to [place] statute, her spouse Melonie Knight will serve as a healthcare proxy medical decision maker. Goals: Goals remain aggressive though patient`s spouse does not want a lung biopsy performed. He wants everything possible that can be done for patient including resuscitation, intubation and feeding tube placement if needed. CODE STATUS: Full code SYMPTOMS: * Pain: Patient came in after a fall which she sustained a left femur fracture. Patient is status post intramedullary nailing of left subtrochanteric femur fracture. Currently not showing signs of pain. Patient`s spouse states that patient gets very agitated when given narcotics and does not want her to receive narcotics. He also believes that when patient receives acetaminophen "it causes A. fib with RVR". Continue to monitor pain and educating patient spouse on nonverbal signs of pain. * Dyspnea: Patient has had episode of hypoxia with O2 sats as low as 87%. Chest CTA 07/13 revealed a right perihilar mass measuring 3.8x4.6x3.1cm suspicious for bronchogenic carcinoma. Pulmonology consulted. Currently on RA with no respiratory distress. * Decreased oral intake: Patient has had decreased oral intake. Dietitian consulted, will monitor medical course and p.o. intake to assess the need for supplements. Per spouse patient is selective to what she eats and if she was upper and lower dentures. Speech therapy following, recommending pured diet with thin liquids. Recommending swallow evaluation with patient's dentures in. * Physical deconditioning: Progressive. Patient has severe lower body dementia and has had multiple falls. Recently fell and had a left femur fracture. Physical therapy consulted, recommending PT at rehab. Patient's participation most likely limited due to cognition problems. Palliative care will continue to follow the patient during hospital course as condition evolves, to assist patient/decision-maker with understanding of their medical conditions, weighing benefits/burdens of treatment options, for clarification of goals of treatment. Additionally will assist with any symptoms of palliative concern Attestation Attestation: To help prompt me to consider important information that might be impacting today's encounter and assessment, information from prior notes written by myself or my colleagues may have been "brought forward" into today's note. My signature on this note, however, is an attestation that I personally performed the exam, history, and/or decision-making noted today, and, unless otherwise indicated, the interactions with patient, family, and staff as well as the review of records all occurred today. I also attest that the listed assessment and stated plan reflect my best clinical judgment today based on the combination of historical information, prior notes, and today's exam/ interactions. When time spent is documented, it refers only to time spent today by the signer, or if indicated, combined time spent today by collaborating physician/nurse practitioner.
--- NOTE | 2018-07-14 18:24 | P.PNCA ---
Subjective Interval history: No events overnight Heart rates controlled Medications and Allergies Active Medications: Active Medications Acetaminophen (Tylenol) 650 mg PO Q4H PRN PRN Reason: Temp > 100.4 Last Admin: 07/12/18 10:07 Dose: 650 mg Acetaminophen (Tylenol) 650 mg PO Q4H PRN PRN Reason: SEE LABEL COMMENTS Last Admin: 07/14/18 03:34 Dose: 650 mg Al Hydroxide/Mg Hydroxide (Milk Of Magnesia Liq) 30 ml PO Q12H PRN PRN Reason: Mild Constipation Albuterol (Duoneb Neb (Starla)) 1 ampul NEB Q6HR ALT NEB [facility] Last Admin: 07/14/18 13:08 Dose: Not Given Bisacodyl (Dulcolax Supp) 10 mg RECTAL DAILY PRN PRN Reason: SEVERE CONSITIPATION Budesonide/Formoterol Fumarate (Symbicort 80/4.5 Mcg Inh) 1 puff INH BID [facility] Last Admin: 07/14/18 09:26 Dose: 1 puff Cyanocobalamin (Vitamin B12) 1,000 mcg PO BID [facility] Last Admin: 07/14/18 09:23 Dose: 1,000 mcg Diphenhydramine HCl (Benadryl) 25 mg PO Q6H PRN PRN Reason: ITCHING Diphenhydramine HCl (Benadryl) 25 mg PO Q4H PRN PRN Reason: SEE LABEL COMMENTS Last Admin: 07/14/18 03:35 Dose: 25 mg Enoxaparin Sodium (Lovenox Inj) 40 mg SQ DAILY [facility] Last Admin: 07/13/18 10:03 Dose: 40 mg Lactated Ringer's (Lr 1000 Ml Inj) 1,000 mls @ 30 mls/hr IV.SIG .Q24H [facility] Last Admin: 07/13/18 20:51 Dose: Not Given Cefazolin Sodium/Dextrose (Ancef 1 Gm Premix Inj) 1 gm in 50 mls @ 100 mls/hr IV.SIG Q8H [facility] Last Admin: 07/14/18 17:48 Dose: 100 mls/hr Dextrose (D5w Inj) 1,000 mls @ 84 mls/hr IV.CONT .[id number] [facility] Last Admin: 07/14/18 09:20 Dose: 84 mls/hr Piperacillin/Tazobactam/Dextrose (Zosyn 4.5 Gm Premix) 4.5 gm in 100 mls @ 200 mls/hr IV.SIG Q6H [facility] Last Admin: 07/14/18 14:17 Dose: 200 mls/hr Vancomycin HCl 1,000 mg/ (Sodium Chloride) 250 mls @ 250 mls/hr IV.SIG Q18H [facility] Last Infusion: 07/14/18 08:45 Dose: Infused Sodium Chloride (Ns Inj) 250 mls @ 15 mls/hr IV.SIG ONCE [facility] Stop: 07/14/18 18:39 Last Admin: 07/14/18 03:55 Dose: 15 mls/hr Lactulose (Lactulose Liq) 30 ml PO DAILY PRN PRN Reason: SEVERE CONSITIPATION Memantine (Namenda) 2.5 mg PO BID [facility] Last Admin: 07/14/18 09:22 Dose: 2.5 mg Metoprolol Tartrate (Lopressor) 25 mg PO RESP THER [facility] Miscellaneous Information ([facility] Ordered Lab Info) 0 each OTHER ONCE ONE Stop: 07/15/18 18:46 Ondansetron HCl (Zofran Inj) 4 mg IV.PUSH Q6H PRN PRN Reason: NAUSEA OR VOMITING Pharmacy Profile Note (Vancomycin Consult Pharmacy) 1 each OTHER UNSCH PRN PRN Reason: Pharmacy to dose Senna/Docusate Sodium (Alejandra-Colace) 1 tab PO BID [facility] Last Admin: 07/14/18 09:23 Dose: Not Given Sennosides (Senokot) 17.2 mg PO Q12H PRN PRN Reason: Moderate Constipation Sodium Chloride (Ns Flush) 2 ml IV.FLUSH BID [facility] Last Admin: 07/14/18 09:22 Dose: Not Given Sodium Chloride (Ns Flush) 2 ml IV.FLUSH PRN PRN PRN Reason: FLUSH AFTER USING IV ACCESS Allergies Allergy/AdvReac Type Severity Reaction Status Date / Time No Known Allergies Allergy Verified 07/08/18 12:45 Home Medications Medication Instructions Recorded Confirmed Type cyanocobalamin (vitamin B-12) 1,000 mcg PO BID 07/08/18 07/11/18 History memantine [Namenda] 2.5 mg PO BID 07/08/18 07/08/18 History Physical Exam Vital signs: Vital Signs 07/13/18 19:43 07/13/18 19:52 07/13/18 22:00 Temperature 98.5 F 99.1 F Pulse Rate 84 Respiratory Rate 25 H Blood Pressure 124/58 L Pulse Oximetry 90 L 96 07/14/18 00:29 07/14/18 00:30 07/14/18 01:10 Temperature 99.3 F Pulse Rate 71 84 Respiratory Rate 16 17 Blood Pressure 115/55 L Pulse Oximetry 96 97 07/14/18 04:15 07/14/18 04:34 07/14/18 04:35 Temperature 98.6 F 98.3 F 98.3 F Pulse Rate 83 83 83 Respiratory Rate 17 20 20 Blood Pressure 136/62 131/62 131/62 Pulse Oximetry 94 L 97 07/14/18 07:30 07/14/18 07:49 07/14/18 12:00 Temperature 98.9 F 99 F Pulse Rate 78 85 Respiratory Rate 16 18 Blood Pressure 125/60 Pulse Oximetry 94 L 95 07/14/18 16:30 Temperature 98.2 F Pulse Rate 82 Respiratory Rate 19 Blood Pressure 134/78 Pulse Oximetry 96 Intake & Output 07/13/18 07/14/18 07/14/18 18:59 06:59 18:59 Intake Total 1500 / 1500 600 / 600 800 / 800 Balance 1500 / 1500 600 / 600 800 / 800 Weight 52.8 kg Intake: IV 1500 / 1500 300 / 300 400 / 400 D5W Inj 1,000 ML @ 84 mls/hr IV 1000 / 1000 .CONT .[id number] [facility] Rx#:[id number] Zosyn 4.5 GM Premix 4.5 gm In 200 / 200 200 / 200 100 / 100 100 ml @ 200 mls/hr IV.SIG Q6H [facility] Rx#:[id number] Vancomycin Inj 1,000 MG In NS 250 / 250 250 / 250 Inj 250 ML @ 250 mls/hr IV.SIG Q18H [facility] Rx#:[id number] Ancef 1 GM Premix Inj 1 gm In 50 / 50 100 / 100 50 / 50 50 ml @ 100 mls/hr IV.SIG Q8H [facility] Rx#:[id number] Oral 300 / 300 Intake (Blood Product) Amt 0 / 0 400 / 400 Rbc As-3 Leukoreduced Unit 0 / 0 400 / 400 [id number] Other: # Incontinent Voids 2 Date of Last Bowel Movement 07/13/18 07/13/18 07/14/18 # Bowel Movements 6 # Incontinent Bowel Movements 1 Narrative: GENERAL: Thin chronically ill appearing elderly female patient in NAD. Awake, alert. Will occasionally say her name or yes/no. SKIN: Warm and dry. No rash. HEENT: Normocephalic. Atraumatic. Pupils equal and round. Mucous membranes pink and moist. NECK: Supple. Trachea midline. Head leaning forward and to the left secondary to chronic scoliosis. CARDIOVASCULAR: Regular rate and rhythm. No murmur appreciated. Pacer at right upper chest. RESPIRATORY: No accessory muscle use. Clear to auscultation. Breath sounds equal bilaterally. GASTROINTESTINAL: Abdomen soft, non-tender, nondistended. Normoactive bowel sounds x4. MUSCULOSKELETAL: No obvious deformities. Extremities without clubbing, cyanosis , or edema. Left hip surgical dressing, CDI. NEUROLOGICAL: Awake and alert. Moving all extremities spontaneously. Difficult to understand. PSYCHIATRIC: insight and judgment limited. - Urinary Catheter Management Indwelling Urethral Catheter Cath placed during this visit: yes, but has since been removed by the nurse Reason for continuing: Decision to DC catheter Insertion date: 07/08/18 Insertion time: 15:58 Removal date: 07/11/18 Removal time: 06:30 Female External Cath placed during this visit: no Results 07/14/18 00:03 07/13/18 09:40 CBC 07/13/18 07/14/18 Range/Units 09:40 00:03 WBC 15.3 H (4.0-11.0) th/mm3 RBC 2.49 L (4.00-5.30) mil/mm3 Hgb 7.3 L 6.9 L* (11.6-15.3) gm/dL Hct 22.2 L 21.4 L (35.0-46.0) % Plt Count 375 (150-450) th/mm3 Neut # (Auto) 12.0 H (1.8-7.7) th/mm3 Lymph # (Auto) 1.8 (1.0-4.8) th/mm3 Harper # (Auto) 1.4 H (0.0-0.9) th/mm3 Eos # (Auto) 0.1 (0.0-0.4) th/mm3 Baso # (Auto) 0.0 (0.0-0.2) th/mm3 Comprehensive Metabolic Panel 07/13/18 Range/Units 09:40 Sodium 145 (136-145) meq/L Potassium 3.5 (3.5-5.1) meq/L Chloride 111 H (98-107) meq/L Carbon Dioxide 26.6 (21.0-32.0) meq/L BUN 27 H (7-18) mg/dL Creatinine 0.91 (0.50-1.00) mg/dL Calcium 7.8 L (8.5-10.1) mg/dL Intake and Output 07/14/18 07/14/18 07/14/18 06:59 14:59 22:59 Intake Total 450 / 450 800 / 800 Balance 450 / 450 800 / 800 Intake: IV 150 / 150 400 / 400 Zosyn 4.5 GM Premix 4.5 gm In 100 / 100 100 / 100 100 ml @ 200 mls/hr IV.SIG Q6H [facility] Rx#:[id number] Vancomycin Inj 1,000 MG In NS 250 / 250 Inj 250 ML @ 250 mls/hr IV.SIG Q18H [facility] Rx#:[id number] Ancef 1 GM Premix Inj 1 gm In 50 / 50 50 / 50 50 ml @ 100 mls/hr IV.SIG Q8H [facility] Rx#:[id number] Oral 300 / 300 Intake (Blood Product) Amt 0 / 0 400 / 400 Rbc As-3 Leukoreduced Unit 0 / 0 400 / 400 [id number] Other: # Incontinent Voids 2 Date of Last Bowel Movement 07/14/18 # Incontinent Bowel Movements 1 Weight 52.8 kg - Imaging and Cardiology Imaging: Impressions Chest CTA 07/13/18 00:00 CONCLUSION: 1. No evidence of pulmonary embolism. 2. Right perihilar mass measuring 3.8 x 4.6 x 3.1 cm is suspicious for bronchogenic carcinoma until proven otherwise. 3. Patchy opacity is noted within the right upper lobe and extends to the pleura. 4. Alveolar consolidation is noted involving the left lower lobe consistent with pneumonia and/or atelectasis. 5. Small left pleural effusion. 6. Multiple compression deformities involving the thoracic spine with underlying diffuse sclerosis involving the severely compressed vertebral bodies. 7. Scoliosis and degenerative changes of the thoracic spine. 8. Cardiomegaly and coronary artery calcification. Assessment and Plan - Assessment (1) Lung mass Code(s): R91.8 - Other nonspecific abnormal finding of lung field Status: Acute (2) Closed fracture of left hip Code(s): S72.002A - Fracture of unspecified part of neck of left femur, initial encounter for closed fracture Status: Acute (3) Lewy body dementia Code(s): G31.83 - Dementia with Lewy bodies; F02.80 - Dementia in other diseases classified elsewhere without behavioral disturbance Status: Acute (4) Atrial fibrillation with RVR Code(s): I48.91 - Unspecified atrial fibrillation Status: Acute (5) Protein calorie malnutrition Code(s): E46 - Unspecified protein-calorie malnutrition Status: Acute (6) Shortness of breath Code(s): R06.02 - Shortness of breath Status: Acute - Plan 1) AFib with RVR Rates now controlled Atrial pacing would like to avoid AV alina blocking agents as "she's not needed them in the past" Not an anticoagulation candidate due to multiple falls 2) Hip fracture s/p nailing 3) Lung mass Pulmonary seeing 4) No further cardiovascular work up If concerns over the weekend, please call the service for covering physician (2) Closed fracture of left hip Qualifiers: Encounter type: initial encounter Qualified Code(s): S72.002A - Fracture of unspecified part of neck of left femur, initial encounter for closed fracture
--- NOTE | 2018-07-14 18:32 | P.PN ---
Subjective Interval history: Awake and responds to some commands. On o2 2 L. She has some cough but no SOB at rest. has a left lung mass and does not wish her to have a Biopsy. Physical Exam Vital signs: Vital Signs 07/13/18 19:43 07/13/18 19:52 07/13/18 22:00 Temperature 98.5 F 99.1 F Pulse Rate 84 Respiratory Rate 25 H Blood Pressure 124/58 L Pulse Oximetry 90 L 96 07/14/18 00:29 07/14/18 00:30 07/14/18 01:10 Temperature 99.3 F Pulse Rate 71 84 Respiratory Rate 16 17 Blood Pressure 115/55 L Pulse Oximetry 96 97 07/14/18 04:15 07/14/18 04:34 07/14/18 04:35 Temperature 98.6 F 98.3 F 98.3 F Pulse Rate 83 83 83 Respiratory Rate 17 20 20 Blood Pressure 136/62 131/62 131/62 Pulse Oximetry 94 L 97 07/14/18 07:30 07/14/18 07:49 07/14/18 12:00 Temperature 98.9 F 99 F Pulse Rate 78 85 Respiratory Rate 16 18 Blood Pressure 125/60 Pulse Oximetry 94 L 95 07/14/18 16:30 Temperature 98.2 F Pulse Rate 82 Respiratory Rate 19 Blood Pressure 134/78 Pulse Oximetry 96 Intake & Output 07/13/18 07/14/18 07/14/18 18:59 06:59 18:59 Intake Total 1500 / 1500 600 / 600 800 / 800 Balance 1500 / 1500 600 / 600 800 / 800 Weight 52.8 kg Intake: IV 1500 / 1500 300 / 300 400 / 400 D5W Inj 1,000 ML @ 84 mls/hr IV 1000 / 1000 .CONT .[id number] [facility] Rx#:[id number] Zosyn 4.5 GM Premix 4.5 gm In 200 / 200 200 / 200 100 / 100 100 ml @ 200 mls/hr IV.SIG Q6H [facility] Rx#:[id number] Vancomycin Inj 1,000 MG In NS 250 / 250 250 / 250 Inj 250 ML @ 250 mls/hr IV.SIG Q18H [facility] Rx#:[id number] Ancef 1 GM Premix Inj 1 gm In 50 / 50 100 / 100 50 / 50 50 ml @ 100 mls/hr IV.SIG Q8H [facility] Rx#:[id number] Oral 300 / 300 Intake (Blood Product) Amt 0 / 0 400 / 400 Rbc As-3 Leukoreduced Unit 0 / 0 400 / 400 [id number] Other: # Incontinent Voids 2 Date of Last Bowel Movement 07/13/18 07/13/18 07/14/18 # Bowel Movements 6 # Incontinent Bowel Movements 1 Narrative: GENERAL: Thin chronically ill appearing elderly female patient in NAD. Awake, alert. SKIN: Warm and dry. No rash. HEENT: Normocephalic. Atraumatic. Pupils equal and round. Mucous membranes pink and moist. NECK: Supple. Trachea midline. Head leaning forward and to the left secondary to chronic scoliosis. CARDIOVASCULAR: Regular rate and rhythm. No murmur appreciated. Pacer at right upper chest. RESPIRATORY: No accessory muscle use. Occ Wheeze . Breath sounds equal bilaterally. GASTROINTESTINAL: Abdomen soft, non-tender, nondistended. Normoactive bowel sounds x4. MUSCULOSKELETAL: No obvious deformities. Extremities without clubbing, cyanosis , or edema. Left hip surgical dressing, CDI. NEUROLOGICAL: Awake and alert. Moving all extremities spontaneously. Confused and mumbles words. PSYCHIATRIC:cannot assess. - Urinary Catheter Management Indwelling Urethral Catheter Cath placed during this visit: yes, but has since been removed by the nurse Reason for continuing: Decision to DC catheter Insertion date: 07/08/18 Insertion time: 15:58 Removal date: 07/11/18 Removal time: 06:30 Female External Cath placed during this visit: no Results - Labs CBC & Chem 7: 07/14/18 00:03 07/13/18 09:40 Laboratory Results - last 24 hr 07/13/18 07/14/18 07/14/18 20:52 00:03 01:35 Hgb 6.9 L* Hct 21.4 L Puncture Site Right radial Patient Temperature 98.6 O2 Saturation 95 ABG pH 7.52 H* ABG pCO2 31 L ABG pO2 89 ABG HCO3 26 ABG O2 Content 8.7 L ABG Base Excess 2.6 H ABG Methemoglobin 0.8 Paras Test Present Hemoglobin 6.4 L* Carboxyhemoglobin 2.6 O2 Delivery Device Nasal cannula Critical Value Yes Stl C.difficile DNA Amp St C. diff Tox Epid 027 Blood Type B Positive Blood Type Recheck Required Antibody Screen Negative MTS Gel Crossmatch See Detail 07/14/18 07/14/18 01:40 12:35 Hgb Hct Puncture Site Patient Temperature O2 Saturation ABG pH ABG pCO2 ABG pO2 ABG HCO3 ABG O2 Content ABG Base Excess ABG Methemoglobin Paras Test Hemoglobin Carboxyhemoglobin O2 Delivery Device Critical Value Stl C.difficile DNA Amp Negative St C. diff Tox Epid 027 Negative Blood Type Cancelled Blood Type Recheck Cancelled Antibody Screen Cancelled MTS Gel Crossmatch Microbiology 07/12/18 11:05 Blood - Peripheral Aerobic Blood Culture - Preliminary No growth in 2 days 07/12/18 11:05 Blood - Peripheral Anaerobic Blood Culture - Final QNS - See aerobic report. 07/12/18 11:10 Blood - Peripheral Aerobic Blood Culture - Preliminary No growth in 2 days 07/12/18 11:10 Blood - Peripheral Anaerobic Blood Culture - Final QNS - See aerobic report. - Procedures 07/09/18- Intramedullary nail left subtrochanteric femur fracture by Dr. Herrera Assessment and Plan - Assessment (1) COPD (chronic obstructive pulmonary disease) Code(s): J44.9 - Chronic obstructive pulmonary disease, unspecified Status: Acute (2) Mass of left lung Code(s): R91.8 - Other nonspecific abnormal finding of lung field Status: Acute (3) Closed fracture of left hip Code(s): S72.002A - Fracture of unspecified part of neck of left femur, initial encounter for closed fracture Status: Acute (4) Pain Code(s): R52 - Pain, unspecified Status: Acute (5) History of hysterectomy Code(s): Z90.710 - Acquired absence of both cervix and uterus Status: Acute (6) Urinary tract infection Code(s): N39.0 - Urinary tract infection, site not specified Status: Acute (7) Lewy body dementia Code(s): G31.83 - Dementia with Lewy bodies; F02.80 - Dementia in other diseases classified elsewhere without behavioral disturbance Status: Acute (8) Atrial fibrillation with RVR Code(s): I48.91 - Unspecified atrial fibrillation Status: Acute (9) Sepsis Code(s): A41.9 - Sepsis, unspecified organism Status: Acute (10) Protein calorie malnutrition Code(s): E46 - Unspecified protein-calorie malnutrition Status: Acute (11) Pneumonia Code(s): J18.9 - Pneumonia, unspecified organism Status: Acute - Plan 1. Will leave on O2 2 L. 2. Duoneb nebs qid. 3. Use Symbicort 160/4.5 mcg , 1 puff bid 4. Will consider Biopsy of lung mass if is agreeable 5. CBC, Coag profile 6. PFT if she can Cooperate 7. Continue antibiotics for 5 days (3) Closed fracture of left hip Qualifiers: Encounter type: initial encounter Qualified Code(s): S72.002A - Fracture of unspecified part of neck of left femur, initial encounter for closed fracture
[2018-07-14 19:18] LABS: % Iron Saturation 10.1 % (20-50); Ferritin 334 ng/mL (8-252); Folate 6.4 ng/mL (3.1-17.5); Iron 21 mcg/dL (50-170); Total Iron Binding Capacity 207 mcg/dL (250-450)
[2018-07-15] MEDS: Vancomycin Inj 1,000 MG in Sodium Chlor 0.9% Inj 250 ML IV.SIG SCH ×3 (01:54→23:26)
[2018-07-15] MEDS: Piperacil/Tazo 4.5 GM Premix 4.5 GM/100 ML BAG IV.SIG SCH ×4 (02:29→20:39)
[2018-07-15] MEDS: ceFAZolin 1 GM Premix Inj 1 GM/50 ML FROZ.PIGGY IV.SIG SCH ×3 (02:58→17:33)
[2018-07-15 08:06] LABS: Baso # (Auto) 0.1 th/mm3 (0.0-0.2); Baso % (Auto) 0.6 % (0.0-2.0); Eos # (Auto) 0.4 th/mm3 (0.0-0.4); Eos % (Auto) 3.1 % (0.0-4.0); Hematocrit 29.8 % (35.0-46.0); Hemoglobin 9.9 gm/dL (11.6-15.3); Lymph # (Auto) 1.4 th/mm3 (1.0-4.8); Lymph % (Auto) 12.1 % (9.0-44.0); Mean Corpuscular HGB Conc 33.1 % (32.0-36.0); Mean Corpuscular Hemoglobin 28.8 pg (27.0-34.0); Mean Platelet Volume 8.6 fL (7.0-11.0); Mono # (Auto) 1.1 th/mm3 (0.0-0.9); Mono % (Auto) 10.1 % (0.0-8.0); Neut # (Auto) 8.4 th/mm3 (1.8-7.7); Neut % (Auto) 74.1 % (16.0-70.0); Platelet Count 443 th/mm3 (150-450); Red Blood Count 3.42 mil/mm3 (4.00-5.30); Red Cell Distribution Width 14.7 % (11.6-17.2); White Blood Count 11.3 th/mm3 (4.0-11.0)
[2018-07-15 08:55] LABS: Calcium 7.6 mg/dL (8.5-10.1); Carbon Dioxide 28.4 meq/L (21.0-32.0); Magnesium 1.8 mg/dL (1.5-2.5)
[2018-07-15] MEDS: Budesonide-Formoterol 80/4.5 MCG 6.9 GM Inhaler INH SCH ×2 (09:47→20:39)
[2018-07-15] MEDS: Senna/Docusate Sodium 8.6/50 MG Tablet PO SCH ×2 (09:47→20:33)
[2018-07-15] MEDS ORDERED: Mag Sulf 1 gm/100 ml Premix 100 ML IV.SIG ONE (13:21)
--- NOTE | 2018-07-15 13:25 | P.PN ---
Subjective Interval history: Follow up for dementia, UTI, HCAP, hip fx s/p intramedullary nail, afib with RVR. The patient is seen with [employer] and RN at bedside, attempting to feed the patient. She is taking small amounts of her Ensure shake and small bites of applesauce. She is oriented to self only. She states she is hungry. She denies any pain. Denies any other medical complaints at this time. Vital signs reviewed and stable. Physical Exam Vital signs: Vital Signs 07/14/18 16:30 07/14/18 20:00 07/14/18 21:43 Temperature 98.2 F 98.5 F Pulse Rate 82 88 Respiratory Rate 19 22 Blood Pressure 134/78 159/72 H Pulse Oximetry 96 97 94 L 07/15/18 00:00 07/15/18 04:00 07/15/18 08:00 Temperature 97.6 F 98.1 F 98.5 F Pulse Rate 85 81 83 Respiratory Rate 20 20 18 Blood Pressure 143/65 H 159/72 H 154/72 H Pulse Oximetry 96 98 95 07/15/18 08:35 07/15/18 12:00 Temperature 98.1 F Pulse Rate 86 Respiratory Rate 18 Blood Pressure 116/57 L Pulse Oximetry 95 97 Intake & Output 07/14/18 07/15/18 07/15/18 18:59 06:59 18:59 Intake Total 1030 / 1030 1450 / 1450 1200 / 1200 Output Total 1804 / 1804 Balance -774 / -774 1450 / 1450 1200 / 1200 Weight 52.8 kg Intake: IV 630 / 630 1450 / 1450 1200 / 1200 D5W Inj 1,000 ML @ 84 mls/hr IV 1000 / 1000 1000 / 1000 .CONT .[id number] HELEN Rx#:[id number] Zosyn 4.5 GM Premix 4.5 gm In 200 / 200 200 / 200 100 / 100 100 ml @ 200 mls/hr IV.SIG Q6H HELEN Rx#:[id number] NS Inj 250 ML @ 15 mls/hr IV. 80 / 80 SIG ONCE HELEN Rx#:[id number] Vancomycin Inj 1,000 MG In NS 250 / 250 250 / 250 Inj 250 ML @ 250 mls/hr IV.SIG Q18H HELEN Rx#:[id number] Ancef 1 GM Premix Inj 1 gm In 100 / 100 100 / 100 50 ml @ 100 mls/hr IV.SIG Q8H HELEN Rx#:[id number] Intake (Blood Product) Amt 400 / 400 Rbc As-3 Leukoreduced Unit 400 / 400 [id number] Output: Urine 1800 / 1800 Stool 4 / Other: # Incontinent Voids 3 Date of Last Bowel Movement 07/14/18 07/14/18 07/14/18 # Incontinent Bowel Movements 1 Narrative: GENERAL: Thin chronically ill appearing elderly female patient in NAD. Awake, alert. Will occasionally say her name or yes/no. SKIN: Warm and dry. No rash. HEENT: Normocephalic. Atraumatic. Pupils equal and round. Mucous membranes pink and moist. NECK: Supple. Trachea midline. Head leaning forward and to the left secondary to chronic scoliosis. CARDIOVASCULAR: Regular rate and rhythm. No murmur appreciated. Pacer at right upper chest. RESPIRATORY: No accessory muscle use. Diminished inspiratory effort, otherwise clear to auscultation. Breath sounds equal bilaterally. GASTROINTESTINAL: Abdomen soft, non-tender, nondistended. Normoactive bowel sounds x4. MUSCULOSKELETAL: No obvious deformities. Extremities without clubbing, cyanosis , or edema. Left hip surgical dressing, CDI. NEUROLOGICAL: Awake and alert. Moving all extremities spontaneously. Difficult to understand, mumbles, does not always answer questions appropriately. Follows some simple commands, 5/5 director video strength of bilateral upper extremities. PSYCHIATRIC: insight and judgment limited. - Urinary Catheter Management Indwelling Urethral Catheter Cath placed during this visit: yes, but has since been removed by the nurse Reason for continuing: Decision to DC catheter Insertion date: 07/08/18 Insertion time: 15:58 Removal date: 07/11/18 Removal time: 06:30 Female External Cath placed during this visit: no Results - Labs CBC & Chem 7: 07/15/18 07:35 07/15/18 07:35 Laboratory Results - last 24 hr 07/13/18 07/14/18 07/15/18 09:40 12:35 07:35 WBC 11.3 H RBC 3.42 L Hgb 9.9 L D Hct 29.8 L MCV 87.0 MCH 28.8 MCHC 33.1 RDW 14.7 Plt Count 443 MPV 8.6 Neut % (Auto) 74.1 H Lymph % (Auto) 12.1 Leon % (Auto) 10.1 H Eos % (Auto) 3.1 Baso % (Auto) 0.6 Neut # (Auto) 8.4 H Lymph # (Auto) 1.4 Leon # (Auto) 1.1 H Eos # (Auto) 0.4 Baso # (Auto) 0.1 WBC Differential . Differential Comment Auto diff final Sodium Potassium Chloride Carbon Dioxide Anion Gap BUN Creatinine Estimated GFR Random Glucose Calcium Magnesium Iron 21 L TIBC 207 L % Saturation 10.1 L Ferritin 334 H Vitamin B12 Greater than 2000 H Vitamin D 25-Hydroxy 11.5 L Folate 6.4 Stl C.difficile DNA Amp Negative St C. diff Tox Epid 027 Negative 07/15/18 07:35 WBC RBC Hgb Hct MCV MCH MCHC RDW Plt Count MPV Neut % (Auto) Lymph % (Auto) Leon % (Auto) Eos % (Auto) Baso % (Auto) Neut # (Auto) Lymph # (Auto) Leon # (Auto) Eos # (Auto) Baso # (Auto) WBC Differential Differential Comment Sodium 139 Potassium 3.0 L Chloride 101 D Carbon Dioxide 28.4 Anion Gap 10 BUN 13 Creatinine 0.70 Estimated GFR 81 L Random Glucose 119 H Calcium 7.6 L Magnesium 1.8 Iron TIBC % Saturation Ferritin Vitamin B12 Vitamin D 25-Hydroxy Folate Stl C.difficile DNA Amp St C. diff Tox Epid 027 Microbiology 07/12/18 11:05 Blood - Peripheral Aerobic Blood Culture - Preliminary No growth in 3 days 07/12/18 11:05 Blood - Peripheral Anaerobic Blood Culture - Final QNS - See aerobic report. 07/12/18 11:10 Blood - Peripheral Aerobic Blood Culture - Preliminary No growth in 3 days 07/12/18 11:10 Blood - Peripheral Anaerobic Blood Culture - Final QNS - See aerobic report. - Imaging Femur X-Ray 07/08/18 12:45 CONCLUSION: Comminuted and mildly displaced and mildly angulated intertrochanteric and proximal shaft fracture of the left femur. Tibia/Fibula X-Ray 07/08/18 12:45 CONCLUSION: Left tibia and fibula appear intact. Pelvis X-Ray 07/08/18 12:46 CONCLUSION: No evidence of pelvic fracture. Chest X-Ray 07/08/18 14:09 CONCLUSION: Mild right upper lobe opacification, probably scarring although a mild pneumonic infiltrate is not excludable. I don't have any pertinent priors. No other evidence of acute cardiopulmonary disease. Hip X-Ray 07/09/18 00:00 CONCLUSION: Fixation left intertrochanteric fracture. Chest X-Ray 07/12/18 09:17 CONCLUSION: Increasing consolidation left base new from comparison study. Mild interstitial edema. Chest CTA 07/13/18 00:00 CONCLUSION: 1. No evidence of pulmonary embolism. 2. Right perihilar mass measuring 3.8 x 4.6 x 3.1 cm is suspicious for bronchogenic carcinoma until proven otherwise. 3. Patchy opacity is noted within the right upper lobe and extends to the pleura. 4. Alveolar consolidation is noted involving the left lower lobe consistent with pneumonia and/or atelectasis. 5. Small left pleural effusion. 6. Multiple compression deformities involving the thoracic spine with underlying diffuse sclerosis involving the severely compressed vertebral bodies. 7. Scoliosis and degenerative changes of the thoracic spine. 8. Cardiomegaly and coronary artery calcification. - Procedures 07/09/18- Intramedullary nail left subtrochanteric femur fracture by Dr. Herrera Assessment and Plan - Plan 77-year-old female with Lewy body dementia status post fall at home. Left femur fracture s/p mechanical fall at home -xrays reviewed, consistent with comminuted left intertrochanteric hip fracture. Tib-fib x-ray is normal and pelvis intact. -orthopedics consulted -S/P Intramedullary nail left subtrochanteric femur fracture, Dr. Herrera 07/16 -Follow up with Dr. Herrera in 2 weeks -Tylenol for pain. Avoid narcotics -PT recommends Rehab placement Afib with RVR: patient with hx of ablation and pacemaker, not on any rate controlling medications at home -per pacer needs to be checked in Nov [place] performed pacer check on 07/11, unremarkable, paced rhythm at 80bpm -monitor on telemetry -s/p Halicat on 07/12, given IV Cardizem 10mg x2, transferred to [facility], now back in normal sinus paced rhythm -Cardiology consulted, discussed with Dr. Aleman, appreciate assistance, no further intervention -continue to monitor, has remained in sinus rhythm Hypoxia: acute, patient with episodes of hypoxia as low as 87%. Suspect secondary to pneumonia and lung mass. -D-dimer elevated at 4.76, chest CTA showed mass and pneumonia, no PE, see below -pulmonology consulted, started on duonebs q6h, Symbicort bid -O2 as needed Sepsis: acute. Suspect secondary to UTI and HCAP -patient meets sepsis with WBC 13K, tachycardia, fever 100.5 -lactic acid 1.6 -UA remarkable for UTI however urine culture with mixed uzma -Blood cultures with NGTD -Repeat CXR 07/12 shows worsening consolidation -Chest CTA 07/13 showed perihilar mass and consolidation of LLL consistent with pneumonia -Changed antibiotics to IV Zosyn and IV Vanco with pharmacy consult -pulmonology following, recommends continuing antibiotics for 5 days Perihilar Mass: concern for bronchogenic carcinoma -Chest CTA 07/13 showed Right perihilar mass measuring 3.8 x 4.6 x 3.1 cm is suspicious for bronchogenic carcinoma until proven otherwise -Consulted pulmonology and palliative care, greatly appreciate assistance - has opted not to proceed with biopsy at this time Lewy body dementia with failure to thrive, malnutrition -Continue with vitamin B12 1000mcg bid, Namenda 2.5 twice daily -Consulted palliative care for goals of treatment, per goals remain aggressive at this time Hypernatremia: Na 150 -patient was previously on IVF with NS, changed to Dextrose 5% in water -monitor daily BMP -repeat Na 145 today, improved Protein Calorie Malnutrition with Poor Oral Intake: suspect multifactorial with dementia, recent hip fracture, infection. -speech therapy following -dietitian consulted for calorie count -add Ensure to meals -patient may need feeding tube placed, would agree to this, calorie count currently being done Acute Normocytic Anemia: Hgb dropped to 6.9 today 07/14 -given 1u pRBC transfusion -check stool hemoccult -iron studies consistent with chronic anemia -repeat CBC shows improvement with Hgb 9.9 Vitamin D Deficiency: -give ergocalciferol 50,000u q7d DVT Prophylaxis: Lovenox sq Discharge Planning: Not yet ready for discharge. Will likely be here another 3-5days. May need feeding tube placed prior to discharge to SNF.
[2018-07-15] MEDS: Dextrose 5% in Water Inj 1,000 ML IV.CONT SCH ×2 (13:44→23:24)
[2018-07-15] MEDS: Potassium Chlor 20 mEq Premix 20 MEQ/100 ML PIGGYBACK IV.SIG SCH ×2 (15:09→18:01)
[2018-07-15] MEDS ORDERED: Potassium Chlor 20 mEq Premix 20 MEQ/100 ML PIGGYBACK IV.SIG SCH (18:00)
[2018-07-15] MEDS ORDERED: Pharmacy Ordered Lab Info OTHER ONE (18:45)
[2018-07-16] MEDS: ceFAZolin 1 GM Premix Inj 1 GM/50 ML FROZ.PIGGY IV.SIG SCH ×3 (01:41→17:07)
[2018-07-16] MEDS: Piperacil/Tazo 4.5 GM Premix 4.5 GM/100 ML BAG IV.SIG SCH ×4 (02:55→19:26)
[2018-07-16] MEDS: Senna/Docusate Sodium 8.6/50 MG Tablet PO SCH ×2 (09:07→20:05)
--- NOTE | 2018-07-16 09:10 | P.PN ---
Subjective Interval history: Follow up for dementia, UTI, HCAP, hip fx s/p intramedullary nail, afib with RVR. The patient is sleeping this morning, awakens to voice, tells me her name but does not answer any further questions. Still with minimal oral intake. Vital signs stable. Physical Exam Vital signs: Vital Signs 07/15/18 12:00 07/15/18 16:00 07/15/18 16:33 Temperature 98.1 F 98.5 F Pulse Rate 86 86 83 Respiratory Rate 18 18 16 Blood Pressure 116/57 L 124/74 Pulse Oximetry 97 99 07/15/18 19:54 07/15/18 20:25 07/15/18 20:53 Temperature 98.5 F Pulse Rate 83 83 Respiratory Rate 18 Blood Pressure 131/59 L Pulse Oximetry 99 94 L 07/15/18 23:57 07/16/18 00:00 07/16/18 01:41 Temperature 98.2 F Pulse Rate 84 82 Respiratory Rate 17 17 Blood Pressure 128/60 Pulse Oximetry 99 07/16/18 03:56 07/16/18 04:00 07/16/18 08:00 Temperature 98.1 F 97.4 F L Pulse Rate 84 83 82 Respiratory Rate 17 17 Blood Pressure 115/58 L 133/60 Pulse Oximetry 99 100 07/16/18 08:10 Temperature Pulse Rate Respiratory Rate 16 Blood Pressure Pulse Oximetry Intake & Output 07/15/18 07/16/18 07/16/18 18:59 06:59 18:59 Intake Total 1550 / 1550 600 / 600 Output Total 800 / 800 Balance 1550 / 1550 -200 / -200 Weight 52.5 kg Intake: IV 1550 / 1550 600 / 600 D5W Inj 1,000 ML @ 84 mls/hr IV 1000 / 1000 .CONT .[id number] HELEN Rx#:[id number] Magnesium Sulfate 1 gm/D5W 100 100 / 100 ml Premix 100 ML @ 100 mls/hr IV.SIG ONCE ONE Rx#:[id number] Zosyn 4.5 GM Premix 4.5 gm In 200 / 200 200 / 200 100 ml @ 200 mls/hr IV.SIG Q6H HELEN Rx#:[id number] KCl 20 mEq Premix Inj 20 meq In 100 / 100 100 / 100 100 ml @ 50 mls/hr IV.SIG Q2H HELEN Rx#:[id number] Vancomycin Inj 1,000 MG In NS 250 / 250 Inj 250 ML @ 250 mls/hr IV.SIG Q18H HELEN Rx#:[id number] Ancef 1 GM Premix Inj 1 gm In 150 / 150 50 / 50 50 ml @ 100 mls/hr IV.SIG Q8H HELEN Rx#:[id number] Output: Urine Amount (Catheter) 800 / 800 Female External 800 / 800 Other: # Incontinent Voids 1 Date of Last Bowel Movement 07/14/18 07/15/18 # Incontinent Bowel Movements 1 Narrative: GENERAL: Thin chronically ill appearing elderly female patient in NAD. Awake, alert. Will occasionally say her name or yes/no. SKIN: Warm and dry. No rash. HEENT: Normocephalic. Atraumatic. Pupils equal and round. Mucous membranes pink and moist. NECK: Supple. Head leaning forward and to the left secondary to chronic scoliosis. CARDIOVASCULAR: Regular rate and rhythm. No murmur appreciated. Pacer at right upper chest. RESPIRATORY: No accessory muscle use. Diminished inspiratory effort, otherwise clear to auscultation. Breath sounds equal bilaterally. GASTROINTESTINAL: Abdomen soft, non-tender, nondistended. Normoactive bowel sounds x4. MUSCULOSKELETAL: No obvious deformities. Extremities without clubbing, cyanosis , or edema. Left hip surgical dressing, CDI. NEUROLOGICAL: Awake and alert. Moving all extremities spontaneously. Difficult to understand, mumbles, does not always answer questions appropriately. Follows some simple commands, 5/5 tennis camp instructor strength of bilateral upper extremities. PSYCHIATRIC: insight and judgment limited. - Urinary Catheter Management Indwelling Urethral Catheter Cath placed during this visit: yes, but has since been removed by the nurse Reason for continuing: Decision to DC catheter Insertion date: 07/08/18 Insertion time: 15:58 Removal date: 07/11/18 Removal time: 06:30 Female External Cath placed during this visit: no Results - Labs CBC & Chem 7: 07/15/18 07:35 07/15/18 07:35 Laboratory Results - last 24 hr 07/15/18 20:39 Vancomycin Trough 11.5 H Microbiology 07/12/18 11:05 Blood - Peripheral Aerobic Blood Culture - Preliminary No growth in 3 days 07/12/18 11:05 Blood - Peripheral Anaerobic Blood Culture - Final QNS - See aerobic report. 07/12/18 11:10 Blood - Peripheral Aerobic Blood Culture - Preliminary No growth in 3 days 07/12/18 11:10 Blood - Peripheral Anaerobic Blood Culture - Final QNS - See aerobic report. - Imaging Femur X-Ray 07/08/18 12:45 CONCLUSION: Comminuted and mildly displaced and mildly angulated intertrochanteric and proximal shaft fracture of the left femur. Tibia/Fibula X-Ray 07/08/18 12:45 CONCLUSION: Left tibia and fibula appear intact. Pelvis X-Ray 07/08/18 12:46 CONCLUSION: No evidence of pelvic fracture. Chest X-Ray 07/08/18 14:09 CONCLUSION: Mild right upper lobe opacification, probably scarring although a mild pneumonic infiltrate is not excludable. I don't have any pertinent priors. No other evidence of acute cardiopulmonary disease. Hip X-Ray 07/09/18 00:00 CONCLUSION: Fixation left intertrochanteric fracture. Chest X-Ray 07/12/18 09:17 CONCLUSION: Increasing consolidation left base new from comparison study. Mild interstitial edema. Chest CTA 07/13/18 00:00 CONCLUSION: 1. No evidence of pulmonary embolism. 2. Right perihilar mass measuring 3.8 x 4.6 x 3.1 cm is suspicious for bronchogenic carcinoma until proven otherwise. 3. Patchy opacity is noted within the right upper lobe and extends to the pleura. 4. Alveolar consolidation is noted involving the left lower lobe consistent with pneumonia and/or atelectasis. 5. Small left pleural effusion. 6. Multiple compression deformities involving the thoracic spine with underlying diffuse sclerosis involving the severely compressed vertebral bodies. 7. Scoliosis and degenerative changes of the thoracic spine. 8. Cardiomegaly and coronary artery calcification. - Procedures 07/09/18- Intramedullary nail left subtrochanteric femur fracture by Dr. Herrera Assessment and Plan - Plan 77-year-old female with Lewy body dementia status post fall at home. Left femur fracture s/p mechanical fall at home -xrays reviewed, consistent with comminuted left intertrochanteric hip fracture. Tib-fib x-ray is normal and pelvis intact. -orthopedics consulted -S/P Intramedullary nail left subtrochanteric femur fracture, Dr. Herrera 07/16 -Follow up with Dr. Herrera in 2 weeks -Tylenol for pain. Avoid narcotics -PT recommends Rehab placement Afib with RVR: patient with hx of ablation and pacemaker, not on any rate controlling medications at home -per pacer needs to be checked in Nov -[facility] performed pacer check on 07/11, unremarkable, paced rhythm at 80bpm -monitor on telemetry -s/p Halicat on 07/12, given IV Cardizem 10mg x2, transferred to [facility], now back in normal sinus paced rhythm -Cardiology consulted, discussed with Dr. Aleman, appreciate assistance, no further intervention -continue to monitor, has remained in sinus paced rhythm Hypoxia: acute, patient with episodes of hypoxia as low as 87%. Suspect secondary to pneumonia and lung mass. -D-dimer elevated at 4.76, chest CTA showed mass and pneumonia, no PE, see below -pulmonology consulted, started on duonebs q6h, Symbicort bid -O2 as needed Sepsis: acute. Suspect secondary to UTI and HCAP -patient meets sepsis with WBC 13K, tachycardia, fever 100.5 -lactic acid 1.6 -UA remarkable for UTI however urine culture with mixed uzma -Blood cultures with NGTD -Repeat CXR 07/12 shows worsening consolidation -Chest CTA 07/13 showed perihilar mass and consolidation of LLL consistent with pneumonia -Changed antibiotics to IV Zosyn and IV Vanco with pharmacy consult -pulmonology following, recommends continuing antibiotics for 5 days Perihilar Mass: concern for bronchogenic carcinoma -Chest CTA 07/13 showed Right perihilar mass measuring 3.8 x 4.6 x 3.1 cm is suspicious for bronchogenic carcinoma until proven otherwise -Consulted pulmonology and palliative care, greatly appreciate assistance - has opted not to proceed with biopsy at this time Lewy body dementia with failure to thrive, malnutrition -Continue with vitamin B12 1000mcg bid, Namenda 2.5 twice daily -Consulted palliative care for goals of treatment, per goals remain aggressive at this time Hypernatremia: Na 150 -patient was previously on IVF with NS, changed to Dextrose 5% in water -repeat Na 145, improved -monitor BMP Protein Calorie Malnutrition with Poor Oral Intake: suspect multifactorial with dementia, recent hip fracture, infection. -speech therapy following -dietitian consulted for calorie count -add Ensure to meals -patient may need feeding tube placed, would agree to this -calorie count currently being done 07/14 to 07/16, to be collected on 07/17 by dietitian -likely plan to consult IR for PEG placement on 07/17 if not adequate intake on calorie count Acute Normocytic Anemia: Hgb dropped to 6.9 today 07/14 -given 1u pRBC transfusion -check stool hemoccult -iron studies consistent with chronic anemia -repeat CBC shows improvement with Hgb 9.9 Vitamin D Deficiency: -give ergocalciferol 50,000u q7d DVT Prophylaxis: Lovenox sq Discharge Planning: Not yet ready for discharge. Will likely be here another few days. Likely will need PEG placed on 07/17 if fails calorie count. Plan to d/c to SNF after PEG placed and tolerating tube feeds.
[2018-07-16] MEDS: Dextrose 5% in Water Inj 1,000 ML IV.CONT SCH ×2 (09:11→19:26)
[2018-07-16] MEDS: Budesonide-Formoterol 80/4.5 MCG 6.9 GM Inhaler INH SCH ×2 (10:14→20:06)
[2018-07-16] MEDS: Nystatin Liq 500,000 UNIT/5 ML UDC SWISH-SWAL SCH ×3 (13:31→20:05)
[2018-07-16] MEDS: Vancomycin Inj 1,000 MG in Sodium Chlor 0.9% Inj 250 ML IV.SIG SCH (15:33)
[2018-07-17] MEDS: ceFAZolin 1 GM Premix Inj 1 GM/50 ML FROZ.PIGGY IV.SIG SCH ×2 (01:09→10:50)
[2018-07-17] MEDS: Piperacil/Tazo 4.5 GM Premix 4.5 GM/100 ML BAG IV.SIG SCH ×3 (03:16→14:43)
[2018-07-17 06:08] LABS: Baso # (Auto) 0.1 th/mm3 (0.0-0.2); Baso % (Auto) 0.7 % (0.0-2.0); Eos # (Auto) 0.3 th/mm3 (0.0-0.4); Hematocrit 33.3 % (35.0-46.0); Lymph # (Auto) 1.2 th/mm3 (1.0-4.8); Lymph % (Auto) 12.4 % (9.0-44.0); Mean Corpuscular HGB Conc 33.2 % (32.0-36.0); Mean Corpuscular Hemoglobin 29.1 pg (27.0-34.0); Mean Corpuscular Volume 87.6 fL (80.0-100.0); Mean Platelet Volume 8.5 fL (7.0-11.0); Mono # (Auto) 1.5 th/mm3 (0.0-0.9); Mono % (Auto) 15.2 % (0.0-8.0); Neut # (Auto) 6.7 th/mm3 (1.8-7.7); Neut % (Auto) 68.7 % (16.0-70.0); Platelet Count 557 th/mm3 (150-450); White Blood Count 9.8 th/mm3 (4.0-11.0)
[2018-07-17 06:21] LABS: Calcium 7.9 mg/dL (8.5-10.1); Carbon Dioxide 30.4 meq/L (21.0-32.0); Potassium 3.2 meq/L (3.5-5.1)
[2018-07-17] MEDS: Enoxaparin Inj 40 MG/0.4 ML Syringe SQ SCH (08:39)
[2018-07-17] MEDS: Senna/Docusate Sodium 8.6/50 MG Tablet PO SCH ×2 (08:40→20:27)
[2018-07-17] MEDS: Nystatin Liq 500,000 UNIT/5 ML UDC SWISH-SWAL SCH ×4 (08:41→23:06)
[2018-07-17] MEDS: Dextrose 5% in Water Inj 1,000 ML IV.CONT SCH ×2 (08:41→23:05)
[2018-07-17] MEDS: Budesonide-Formoterol 80/4.5 MCG 6.9 GM Inhaler INH SCH ×2 (08:41→23:05)
[2018-07-17] MEDS ORDERED: Pharmacy Ordered Lab Info OTHER ONE (09:45)
--- NOTE | 2018-07-17 11:38 | P.PNIM ---
Subjective Interval history: cc: follow up UTI, HCAP, dementia, left hip closed fx s/p IM nailing, a-fib with RVR Patient is a 77 year old female with a history of Lewy body dementia who presented status post fall injury at home. Patient is resting in bed. at bedside. Patient denies abdominal pain or constipation. states patient is having bowel movements. Physical Exam Vital signs: Last Vital Signs Temp 97.5 F L 07/17/18 08:00 Pulse 82 07/17/18 08:00 Resp 18 07/17/18 08:00 BP 133/62 07/17/18 08:00 Pulse Ox 92 L 07/17/18 08:00 Intake & Output 07/15/18 07/16/18 07/17/18 07/18/18 06:59 06:59 06:59 06:59 Intake Total 2480 / 2480 3150 / 3150 1800 / 1800 1000 / 1000 Output Total 1804 / 1804 800 / 800 2000 / 2000 Balance 676 / 676 2350 / 2350 -200 / -200 1000 / 1000 Weight 52.8 kg 52.5 kg 52.5 kg Narrative: GENERAL: no acute distress, thin chronically ill appearing female SKIN: Warm and dry. HEAD: atraumatic, normocephalic. EYES: pupils equal and round. No scleral icterus. No injection or drainage. ENT: No nasal bleeding or discharge. Mucous membranes pink and moist. NECK: Trachea midline. No JVD. CARDIOVASCULAR: Regular rate and rhythm. RESPIRATORY: No accessory muscle use. Clear to auscultation. Breath sounds equal bilaterally. GASTROINTESTINAL: Abdomen soft, non-tender, nondistended MUSCULOSKELETAL: extremities without clubbing, cyanosis, or edema. No obvious deformities. NEUROLOGICAL: awake and alert. Mumbles intermittently, able to follow one step commands. PSYCHIATRIC: insight and judgment limited Urinary Catheter Management Indwelling Urethral Catheter: Cath placed during this visit: yes, but has since been removed by the nurse Insertion date: 07/08/18 Insertion time: 15:58 Removal date: 07/11/18 Removal time: 06:30 Female External: Cath placed during this visit: no Results Labs CBC & Chem 7: 07/17/18 05:01 07/17/18 05:01 Labs: Microbiology 07/12/18 11:05 Blood - Peripheral Aerobic Blood Culture - Final No growth in 5 days 07/12/18 11:05 Blood - Peripheral Anaerobic Blood Culture - Final QNS - See aerobic report. 07/12/18 11:10 Blood - Peripheral Aerobic Blood Culture - Final No growth in 5 days 07/12/18 11:10 Blood - Peripheral Anaerobic Blood Culture - Final QNS - See aerobic report. 07/17/18 03:40 Stool Occult Blood - Final Hemoccult negative Procedures Procedures: 07/09/18- Intramedullary nail left subtrochanteric femur fracture by Dr. Herrera Assessment and Plan Plan #. Left femur fracture s/p mechanical fall at home - reviewed 07/17/18, stable -x-rays reviewed, consistent with comminuted left intertrochanteric hip fracture. Tib-fib x-ray is normal and pelvis intact. -orthopedics consulted and following -S/P Intramedullary nail left subtrochanteric femur fracture, Dr. Herrera 07/16 -Follow up with Dr. Herrera in 2 weeks -Tylenol for pain. Avoid narcotics -PT recommends Rehab placement #. Hypokalemia: K 3.2 - reviewed 07/17/18 -replete with 25 meq PO today -repeat BMP in am #. Afib with RVR: patient with hx of ablation and pacemaker, not on any rate controlling medications at home - reviewed 07/17/18, stable -per pacer needs to be checked in Nov -[facility] performed pacer check on 07/11, unremarkable, paced rhythm at 80bpm -monitor on telemetry -s/p Halicat on 07/12, given IV Cardizem 10mg x2, transferred to [facility], now back in normal sinus paced rhythm -Cardiology consulted, discussed with Dr. Aleman, no further intervention. Not a candidate for a/c due to multiple falls. -continue to monitor, has remained in sinus paced rhythm #. Hypoxia: acute, patient with episodes of hypoxia as low as 87%. Suspect secondary to pneumonia and lung mass - reviewed 07/17/18, improved -D-dimer elevated at 4.76, chest CTA showed mass and pneumonia, no PE, see below -pulmonology consulted, started on duonebs q6h, Symbicort bid -O2 as needed #. Sepsis: acute. Suspect secondary to UTI and HCAP - reviewed 07/17/18, improved -patient met sepsis criteria with WBC 13K, tachycardia, fever 100.5 -lactic acid 1.6 -UA remarkable for UTI however urine culture with mixed uzma -Blood cultures with NGTD -Repeat CXR 07/12 shows worsening consolidation -Chest CTA 07/13 showed perihilar mass and consolidation of LLL consistent with pneumonia -Changed antibiotics to IV Zosyn and IV Vanco with pharmacy consult -pulmonology following, recommends continuing antibiotics for 5 days #. Perihilar Mass: concern for bronchogenic carcinoma - reviewed 07/17/18, unchanged -Chest CTA 07/13 showed Right perihilar mass measuring 3.8 x 4.6 x 3.1 cm is suspicious for bronchogenic carcinoma until proven otherwise -Consulted pulmonology and palliative care, greatly appreciate assistance - has opted not to proceed with biopsy at this time #. Lewy body dementia with failure to thrive, malnutrition - reviewed 07/17/18 -Continue with vitamin B12 1000mcg bid, Namenda 2.5 twice daily -Consulted palliative care for goals of treatment, per goals remain aggressive at this time #. Hypernatremia - reviewed 07/17/18, resolved -patient was previously on IVF with NS, changed to Dextrose 5% in water -repeat Na 138, resolved -continue to monitor BMP #. Protein Calorie Malnutrition with Poor Oral Intake: suspect multifactorial with dementia, recent hip fracture, infection - reviewed 07/17/18, unchanged -speech therapy following -dietitian consulted for calorie count, completed 07/17/18 and shows avg daily intake ~ 400 kcals and 15 gms protein. This meets 27% of the low end of her nutritional needs. -IR consulted for PEG tube placement, in agreement -continue Ensure with meals #. Acute Normocytic Anemia - reviewed 07/17/18, stable -given 1u pRBC transfusion -stool hemoccult negative -iron studies consistent with chronic anemia -repeat CBC shows improvement with Hgb 11.0 #. Vitamin D Deficiency: -give ergocalciferol 50,000u q7d MDM: spouse Code: DNR GI ppx: PO intake DVT Prophylaxis: Lovenox sq Progress Note: Quality VTE Deep Vein Thrombosis/Pulmonary Embolism Present on Admission: No
--- NOTE | 2018-07-17 11:49 | P.DIET ---
Nutritional Evaluation Type of nutrition evaluation: follow-up Nutrition screening: MDC (Poor PO Intake) Screening comments: New [facility] for Calorie Counting: completed 07/17 Subjective Subjective Comments: Minimal po intake noted. Pt's is bringing in food for her but she is still not eating much more than 10%. Objective - Diagnosis L hip Fx - Objective % IBW: 94 (IBW = 94%) Body Weight Used for Calculations: Actual (53.4 kg) Energy Needs - Lower Range (kCal/kg): 28 Energy Needs - Upper Range (kCal/kg): 32 Lower Limit kCal/kg (kCals): 1,495 Upper Limit kCal/kg (kCals): 1,709 Lower Limit Protein Factor (Grams per Kg): 1.0 Upper Limit Protein Factor (Grams per Kg): 1.5 Lower Protein Needs (Protein): 53 Upper Protein Needs (Protein): 80 Fluid Factor (ml/kg): 32 Estimated Fluid Needs (ml): 1,709 Dietitian Reviewed in Medical Record: Current diet, Curent medications, Intake & Output, Labs, Medical history Diet Order: Regular Assessment Assessment: Pt continues at high nutrition risk with very poor po intake and a BMI of 19.2. Calorie counts completed and indicate the pt's average daily intake is only ~ 400 kcals and 15 gms protein. This meets only about 27% of the low end of her nutritional needs. Recommend TFing be considered for nutrition support. Pt could continue with pleasure feeding by mouth. Recommendations: Consider TFing . PO intake inadequate. Dietitian to Monitor: Lab values, Supplement acceptance, Intake & Output, Diet tolerance, Weight change, PO Intake, Medical course
[2018-07-17] MEDS ORDERED: Potassium Bicarbonate 25 MEQ Effervescent Tablet PO ONE (13:30)
[2018-07-17] MEDS: Vancomycin Inj 1,000 MG in Sodium Chlor 0.9% Inj 250 ML IV.SIG SCH (13:32)
--- NOTE | 2018-07-17 15:39 | P.PNPAL ---
Reason for Visit Reason for visit: a. To assist with evaluation and management of symptoms including: Pain, decreased oral intake, physical deconditioning b. To assist medical decision maker(s) with: better understanding of current medical conditions; weighing benefits/burdens of medical treatment options; making medical treatment decisions. Subjective Subjective/Interval History: Patient seen and examined in her room. She presents sitting a recliner;awake and alert. Her nurse is also at beside. Speech is primarily garbled/nonsensical. Patient tells me she was born in 1943. She does not exhibits signs of distress. Calorie count completed 07/17/2018. Per report, patient is at high nutritional risk secondary to poor nutritional intake and a BMI of 19.3. Patient's average daily intake is only 400 Kcals and 15 g protein which meets approximately 27% of her nutritional needs. is amenable to PEG tube placement; IR has been consulted. Patient may continue oral intake for pleasure. Pulmonology Dr. Sinha consulted to evaluate and manage patient with a lung mass, recommended biopsy of lung mass when patient is clinically stable. However , patient's does want a lung biopsy performed. Clinical data from 07/17/2018: * WBC: 9.8, hemoglobin 11.0, hematocrit 83.3, platelets 557, neutrophils 68.7% * Sodium: 138, potassium 3.2, chloride 99, carbon dioxide 30.4, random glucose 109, calcium 7.9 * BUN: 10, creatinine 0.77, GFR 73 * Hemoccult-negative stool * C. difficile negative on 07/14/2018 Telephone call to patient`s spouse-message left on his voicemail with Palliative care contact information. Patient's spouse is hopeful the patient will be able to get stronger and return to her baseline functional status which includes ambulation. Goals remain aggressive. Physical therapy is following. Family/Friend Interactions: Message left for patient's on his voicemail with palliative care contact information. Advance Directives Living Will: Never completed Health Care Surrogate: Never completed Durable Power of Project Eng: Never completed Health Care Surrogate Name and Number: HCP-Spouse- Eugene Wilhelm [phone] Objective Vital Signs: Vital Signs 07/16/18 15:00 07/16/18 16:00 07/16/18 19:25 Temperature 97.3 F L Pulse Rate 83 Respiratory Rate 16 16 Blood Pressure 125/59 L Pulse Oximetry 93 L 96 07/16/18 19:46 07/16/18 20:00 07/16/18 22:36 Temperature 98.5 F Pulse Rate 83 82 82 Respiratory Rate 16 20 Blood Pressure 136/65 Pulse Oximetry 96 92 L 07/17/18 00:00 07/17/18 03:23 07/17/18 04:00 Temperature 97.5 F L 97.6 F Pulse Rate 82 82 81 Respiratory Rate 16 18 17 Blood Pressure 128/65 131/77 Pulse Oximetry 99 96 07/17/18 07:00 07/17/18 08:00 07/17/18 12:00 Temperature 97.5 F L 97.9 F Pulse Rate 72 82 83 Respiratory Rate 20 18 18 Blood Pressure 133/62 120/58 L Pulse Oximetry 92 L 95 Intake & Output 07/16/18 07/17/18 07/17/18 18:59 06:59 18:59 Intake Total 550 / 550 1250 / 1250 1100 / 1100 Output Total 1000 / 1000 1000 / 1000 Balance -450 / -450 250 / 250 1100 / 1100 Weight 52.5 kg Intake: IV 550 / 550 1250 / 1250 1100 / 1100 D5W Inj 1,000 ML @ 84 mls/hr IV 1000 / 1000 1000 / 1000 .CONT .[id number] HELEN Rx#:[id number] Zosyn 4.5 GM Premix 4.5 gm In 200 / 200 200 / 200 100 / 100 100 ml @ 200 mls/hr IV.SIG Q6H HELEN Rx#:[id number] Vancomycin Inj 1,000 MG In NS 250 / 250 Inj 250 ML @ 250 mls/hr IV.SIG Q18H HELEN Rx#:[id number] Ancef 1 GM Premix Inj 1 gm In 100 / 100 50 / 50 50 ml @ 100 mls/hr IV.SIG Q8H HELEN Rx#:[id number] Output: Urine Amount (Catheter) 1000 / 1000 1000 / 1000 Female External 1000 / 1000 1000 / 1000 Other: # Incontinent Voids 2 Date of Last Bowel Movement 07/15/18 07/16/18 # Bowel Movements 1 # Incontinent Bowel Movements 1 Physical Exam: CONSTITUTIONAL/GENERAL: This is an elderly patient, in no apparent distress. TUBES/LINES/DRAINS: PIV SKIN: No jaundice, rashes, or lesions. Ecchymoses on upper extremities. No wounds seen anteriorly. Normothermic. HEAD: Atraumatic. Normocephalic. EYES: PERRLA. No scleral icterus. No injection or drainage. Fundi not examined. ENT: Hearing grossly normal. Nose without bleeding or purulent drainage. Oral mucosa moist and pink NECK: Trachea midline. Supple, nontender. CARDIOVASCULAR: Irregular rate and rhythm. No JVD. Pacemaker to Right chest wall. Peripheral pulses symmetric. RESPIRATORY/CHEST: Symmetric, unlabored respirations. Diminished breath sounds. No wheezes, rales, or rhonchi. GASTROINTESTINAL: Abdomen soft, non-tender, nondistended. No guarding. Bowel sounds present. GENITOURINARY: Without palpable bladder distension. External urinary catheter MUSCULOSKELETAL: Extremities without clubbing or cyanosis. Trace pedal edema. No joint tenderness or effusion noted. No mottling or clubbing. LYMPHATICS: Did not assess NEUROLOGICAL: Awake and alert. Oriented to self only. Speech in predominantly garbled/nonsensical. Occasionally responds to simple questions with brief answers. Does not follow simple commands. PSYCHIATRIC: No obvious anxiety/depression. No apparent hallucinations or other psychotic thought process. Diagnostic Tests Laboratory: Laboratory Results - last 72 hr 07/13/18 07/14/18 07/15/18 09:40 12:35 07:35 WBC 11.3 H RBC 3.42 L Hgb 9.9 L D Hct 29.8 L MCV 87.0 MCH 28.8 MCHC 33.1 RDW 14.7 Plt Count 443 MPV 8.6 Neut % (Auto) 74.1 H Lymph % (Auto) 12.1 Falls % (Auto) 10.1 H Eos % (Auto) 3.1 Baso % (Auto) 0.6 Neut # (Auto) 8.4 H Lymph # (Auto) 1.4 Falls # (Auto) 1.1 H Eos # (Auto) 0.4 Baso # (Auto) 0.1 WBC Differential . Differential Comment Auto diff final Sodium Potassium Chloride Carbon Dioxide Anion Gap BUN Creatinine Estimated GFR Random Glucose Calcium Magnesium Iron 21 L TIBC 207 L % Saturation 10.1 L Ferritin 334 H Vitamin B12 Greater than 2000 H Vitamin D 25-Hydroxy 11.5 L Folate 6.4 Stl C.difficile DNA Amp Negative St C. diff Tox Epid 027 Negative Vancomycin Trough 07/15/18 07/15/18 07/17/18 07:35 20:39 05:01 WBC 9.8 RBC 3.80 L Hgb 11.0 L Hct 33.3 L MCV 87.6 MCH 29.1 MCHC 33.2 RDW 15.0 Plt Count 557 H MPV 8.5 Neut % (Auto) 68.7 Lymph % (Auto) 12.4 Falls % (Auto) 15.2 H Eos % (Auto) 3.0 Baso % (Auto) 0.7 Neut # (Auto) 6.7 Lymph # (Auto) 1.2 Falls # (Auto) 1.5 H Eos # (Auto) 0.3 Baso # (Auto) 0.1 WBC Differential . Differential Comment Auto diff final Sodium 139 Potassium 3.0 L Chloride 101 D Carbon Dioxide 28.4 Anion Gap 10 BUN 13 Creatinine 0.70 Estimated GFR 81 L Random Glucose 119 H Calcium 7.6 L Magnesium 1.8 Iron TIBC % Saturation Ferritin Vitamin B12 Vitamin D 25-Hydroxy Folate Stl C.difficile DNA Amp St C. diff Tox Epid 027 Vancomycin Trough 11.5 H 07/17/18 07/17/18 05:01 12:59 WBC RBC Hgb Hct MCV MCH MCHC RDW Plt Count MPV Neut % (Auto) Lymph % (Auto) Falls % (Auto) Eos % (Auto) Baso % (Auto) Neut # (Auto) Lymph # (Auto) Falls # (Auto) Eos # (Auto) Baso # (Auto) WBC Differential Differential Comment Sodium 138 Potassium 3.2 L Chloride 99 Carbon Dioxide 30.4 Anion Gap 9 BUN 10 Creatinine 0.77 Estimated GFR 73 L Random Glucose 109 H Calcium 7.9 L Magnesium Iron TIBC % Saturation Ferritin Vitamin B12 Vitamin D 25-Hydroxy Folate Stl C.difficile DNA Amp St C. diff Tox Epid 027 Vancomycin Trough 13.4 H Result Diagrams: 07/17/18 05:01 07/17/18 05:01 Microbiology: Microbiology 07/12/18 11:05 Aerobic Blood Culture - Final Blood - Peripheral No growth in 5 days Anaerobic Blood Culture - Final QNS - See aerobic report. 07/12/18 11:10 Aerobic Blood Culture - Final Blood - Peripheral No growth in 5 days Anaerobic Blood Culture - Final QNS - See aerobic report. 07/17/18 03:40 Occult Blood - Final Stool Hemoccult negative Imaging: Femur X-Ray 07/08/18 12:45 CONCLUSION: Comminuted and mildly displaced and mildly angulated intertrochanteric and proximal shaft fracture of the left femur. Tibia/Fibula X-Ray 07/08/18 12:45 CONCLUSION: Left tibia and fibula appear intact. Pelvis X-Ray 07/08/18 12:46 CONCLUSION: No evidence of pelvic fracture. Hip X-Ray 07/09/18 00:00 CONCLUSION: Fixation left intertrochanteric fracture. Chest X-Ray 07/12/18 09:17 CONCLUSION: Increasing consolidation left base new from comparison study. Mild interstitial edema. Chest CTA 07/13/18 00:00 CONCLUSION: 1. No evidence of pulmonary embolism. 2. Right perihilar mass measuring 3.8 x 4.6 x 3.1 cm is suspicious for bronchogenic carcinoma until proven otherwise. 3. Patchy opacity is noted within the right upper lobe and extends to the pleura. 4. Alveolar consolidation is noted involving the left lower lobe consistent with pneumonia and/or atelectasis. 5. Small left pleural effusion. 6. Multiple compression deformities involving the thoracic spine with underlying diffuse sclerosis involving the severely compressed vertebral bodies. 7. Scoliosis and degenerative changes of the thoracic spine. 8. Cardiomegaly and coronary artery calcification. Procedures: 07/08/18-intramedullary nailing of left subtrochanteric femur fracture. Assessment and Plan - Disease Oriented Problem List (1) Sepsis Comment: = Suspect secondary to UTI and HCAP patient met sepsis criteria with WBC 13K, tachycardia, fever 100.5 = UA remarkable for UTI however urine culture with mixed uzma = Blood cultures with NGTD = Repeat CXR 07/12/18 shows worsening consolidation = Chest CTA 07/13/18 showed perihilar mass and consolidation of LLL consistent with pneumonia = Changed antibiotics to IV Zosyn and IV Vanco, pharmacy consulted (2) Atrial fibrillation with RVR (3) Closed fracture of left hip (4) Lewy body dementia Comment: = Continue with vitamin B12 1000mcg BID, Namenda 2.5 BID (5) Protein calorie malnutrition - Symptom Scale (1) Pain 0-10 Scale: Unable to quantify Comment: = Recent femur fracture and surgical intervention. . (2) Decreased oral intake 0-10 Scale: Unable to quantify (3) Physical deconditioning 0-10 Scale: Unable to quantify Pertinent Non-Medical Issues: Psychosocial: Patient was born and raised in [place]. She moved to [place] 15 -17 years ago. Patient was twice and has been to her current for the past 58 years. Patient has 2 adult children, daughter Leonarda Bill- (Public Figure-Politician) and a son Angelica Rhoades. 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 Ethical issues impacting care: None identified at this time Important Contacts: Health care proxy- Spouse-Eugene Wilhelm [phone] Daughter- Leonarda Bill Son- Angelica Rhoades Prognosis: Mrs. Wilhelm is a 77-year-old female with a medical history of severe Lewy body dementia, atrial fibrillation, breast cancer, and chronic obstructive pulmonary disease. Patient was brought into the emergency room on 07/08/18 for evaluation and treatment after she sustained a fall at home. Patient underwent intramedullary nailing of left subtrochanteric femur fracture.Clinical course complicated with sepsis, shortness of breath, and decreased oral intake. Given ongoing multiple comorbidities, patient remains at high risk for further complications, deterioration and decline. . Code Status: Full Code Plan: PLAN: * Legal decision maker: Patient is oriented to self only with confusion. She has Lewy body dementia. Patient is not able to participate in medical decision making and will most likely not regain that capacity. According to [place] statute, her spouse Eugene Wilhelm will serve as a healthcare proxy medical decision maker. * Goals: Goals remain aggressive though patient`s spouse does not want a lung biopsy performed. He wants everything possible that can be done for patient including resuscitation, intubation and feeding tube placement if needed. * CODE STATUS: Full code SYMPTOMS: * Pain: Patient came in after a fall which she sustained a left femur fracture. Patient is status post intramedullary nailing of left subtrochanteric femur fracture. Currently not showing signs of pain. Patient`s spouse states that patient gets very agitated when given narcotics and does not want her to receive narcotics. He also believes that when patient receives acetaminophen " it causes A. fib with RVR". Continue to monitor pain and educating patient spouse on nonverbal signs of pain. * Decreased oral intake: Patient has had decreased oral intake. Calorie consult completed 07/17/18. IR consulted for PEG tube placement. spouse amenable to PEG tube placement. Speech therapy following, recommending pured diet with thin liquids; may continue oral intake for pleasure. * Physical deconditioning: Progressive. Patient has severe lower body dementia and has had multiple falls. Recently fell and had a left femur fracture. Physical therapy consulted, recommending SNF placement for rehab. Patient's participation most likely limited due to cognition problems. Palliative care will continue to follow the patient during hospital course as condition evolves, to assist patient/decision-maker with understanding of their medical conditions, weighing benefits/burdens of treatment options, for clarification of goals of treatment. Additionally will assist with any symptoms of palliative concern Attestation Attestation: To help prompt me to consider important information that might be impacting today's encounter and assessment, information from prior notes written by myself or my colleagues may have been "brought forward" into today's note. My signature on this note, however, is an attestation that I personally performed the exam, history, and/or decision-making noted today, and, unless otherwise indicated, the interactions with patient, family, and staff as well as the review of records all occurred today. I also attest that the listed assessment and stated plan reflect my best clinical judgment today based on the combination of historical information, prior notes, and today's exam/ interactions. When time spent is documented, it refers only to time spent today by the signer, or if indicated, combined time spent today by collaborating physician/nurse practitioner.
--- NOTE | 2018-07-17 18:14 | P.PN ---
Subjective Interval history: Seen and examined. does not respond to commands. Off O2 sat 90. Overall stable and No SOB at rest. Physical Exam Vital signs: Vital Signs 07/16/18 19:25 07/16/18 19:46 07/16/18 20:00 Temperature 98.5 F Pulse Rate 83 82 Respiratory Rate 16 Blood Pressure 136/65 Pulse Oximetry 96 96 07/16/18 22:36 07/17/18 00:00 07/17/18 03:23 Temperature 97.5 F L Pulse Rate 82 82 82 Respiratory Rate 20 16 18 Blood Pressure 128/65 Pulse Oximetry 92 L 99 07/17/18 04:00 07/17/18 07:00 07/17/18 08:00 Temperature 97.6 F 97.5 F L Pulse Rate 81 72 82 Respiratory Rate 17 20 18 Blood Pressure 131/77 133/62 Pulse Oximetry 96 92 L 07/17/18 09:00 07/17/18 12:00 07/17/18 15:00 Temperature 97.9 F Pulse Rate 88 83 72 Respiratory Rate 18 20 Blood Pressure 120/58 L Pulse Oximetry 95 07/17/18 16:00 Temperature 97.7 F Pulse Rate 84 Respiratory Rate 18 Blood Pressure 126/58 L Pulse Oximetry 93 L Intake & Output 07/16/18 07/17/18 07/17/18 18:59 06:59 18:59 Intake Total 550 / 550 1250 / 1250 1500 / 1500 Output Total 1000 / 1000 1000 / 1000 Balance -450 / -450 250 / 250 1500 / 1500 Weight 52.5 kg Intake: IV 550 / 550 1250 / 1250 1400 / 1400 D5W Inj 1,000 ML @ 84 mls/hr IV 1000 / 1000 1000 / 1000 .CONT .[id number] HELEN Rx#:[id number] Zosyn 4.5 GM Premix 4.5 gm In 200 / 200 200 / 200 100 / 100 100 ml @ 200 mls/hr IV.SIG Q6H HELEN Rx#:[id number] Vancomycin Inj 1,000 MG In NS 250 / 250 250 / 250 Inj 250 ML @ 250 mls/hr IV.SIG Q18H HELEN Rx#:[id number] Ancef 1 GM Premix Inj 1 gm In 100 / 100 50 / 50 50 / 50 50 ml @ 100 mls/hr IV.SIG Q8H HELEN Rx#:[id number] Oral 100 / 100 Output: Urine Amount (Catheter) 1000 / 1000 1000 / 1000 Female External 1000 / 1000 1000 / 1000 Other: # Incontinent Voids 2 Date of Last Bowel Movement 07/15/18 07/16/18 07/17/18 # Bowel Movements 1 # Incontinent Bowel Movements 1 Narrative: GENERAL: no acute distress, thin chronically ill appearing female SKIN: Warm and dry. HEAD: atraumatic, normocephalic. EYES: pupils equal and round. No scleral icterus. No injection or drainage. ENT: No nasal bleeding or discharge. Mucous membranes pink and moist. NECK: Trachea midline. No JVD. CARDIOVASCULAR: Regular rate and rhythm. RESPIRATORY: Clear to auscultation. Breath sounds equal bilaterally. GASTROINTESTINAL: Abdomen soft, non-tender, nondistended MUSCULOSKELETAL: extremities without clubbing, cyanosis, or edema. NEUROLOGICAL: awake and alert. Mumbles intermittently.Moves feet. PSYCHIATRIC: Cannot assess - Urinary Catheter Management Indwelling Urethral Catheter Cath placed during this visit: yes, but has since been removed by the nurse Reason for continuing: Decision to DC catheter Insertion date: 07/08/18 Insertion time: 15:58 Removal date: 07/11/18 Removal time: 06:30 Female External Cath placed during this visit: no Results - Labs CBC & Chem 7: 07/17/18 05:01 07/17/18 05:01 Laboratory Results - last 24 hr 07/17/18 07/17/18 07/17/18 05:01 05:01 12:59 WBC 9.8 RBC 3.80 L Hgb 11.0 L Hct 33.3 L MCV 87.6 MCH 29.1 MCHC 33.2 RDW 15.0 Plt Count 557 H MPV 8.5 Neut % (Auto) 68.7 Lymph % (Auto) 12.4 Wood % (Auto) 15.2 H Eos % (Auto) 3.0 Baso % (Auto) 0.7 Neut # (Auto) 6.7 Lymph # (Auto) 1.2 Wood # (Auto) 1.5 H Eos # (Auto) 0.3 Baso # (Auto) 0.1 WBC Differential . Differential Comment Auto diff final Sodium 138 Potassium 3.2 L Chloride 99 Carbon Dioxide 30.4 Anion Gap 9 BUN 10 Creatinine 0.77 Estimated GFR 73 L Random Glucose 109 H Calcium 7.9 L Vancomycin Trough 13.4 H Microbiology 07/12/18 11:05 Blood - Peripheral Aerobic Blood Culture - Final No growth in 5 days 07/12/18 11:05 Blood - Peripheral Anaerobic Blood Culture - Final QNS - See aerobic report. 07/12/18 11:10 Blood - Peripheral Aerobic Blood Culture - Final No growth in 5 days 07/12/18 11:10 Blood - Peripheral Anaerobic Blood Culture - Final QNS - See aerobic report. 07/17/18 03:40 Stool Occult Blood - Final Hemoccult negative - Procedures 07/09/18- Intramedullary nail left subtrochanteric femur fracture by Dr. Herrera Assessment and Plan - Assessment (1) COPD (chronic obstructive pulmonary disease) Code(s): J44.9 - Chronic obstructive pulmonary disease, unspecified Status: Acute (2) Mass of left lung Code(s): R91.8 - Other nonspecific abnormal finding of lung field Status: Acute (3) Closed fracture of left hip Code(s): S72.002A - Fracture of unspecified part of neck of left femur, initial encounter for closed fracture Status: Acute (4) Pain Code(s): R52 - Pain, unspecified Status: Acute (5) History of hysterectomy Code(s): Z90.710 - Acquired absence of both cervix and uterus Status: Acute (6) Urinary tract infection Code(s): N39.0 - Urinary tract infection, site not specified Status: Acute (7) Lewy body dementia Code(s): G31.83 - Dementia with Lewy bodies; F02.80 - Dementia in other diseases classified elsewhere without behavioral disturbance Status: Acute (8) Atrial fibrillation with RVR Code(s): I48.91 - Unspecified atrial fibrillation Status: Acute (9) Sepsis Code(s): A41.9 - Sepsis, unspecified organism Status: Acute (10) Protein calorie malnutrition Code(s): E46 - Unspecified protein-calorie malnutrition Status: Acute (11) Pneumonia Code(s): J18.9 - Pneumonia, unspecified organism Status: Acute - Plan 1. Will leave on O2 2 L.PRN 2. Duoneb nebs tid 3. Use Symbicort 160/4.5 mcg , 1 puff bid 4. Will consider Biopsy of lung mass if is agreeable 5. Palliative care to see 6. CXR in am (3) Closed fracture of left hip Qualifiers: Encounter type: initial encounter Qualified Code(s): S72.002A - Fracture of unspecified part of neck of left femur, initial encounter for closed fracture
--- NOTE | 2018-07-18 06:11 | XR ---
EXAM DATE: 07/18/2018 5:55 AM EST AGE/SEX: 77 years / Female INDICATIONS: Short of breath, evaluate infiltrate CLINICAL DATA: This is the patient's subsequent encounter. Patient reports that signs and symptoms h ave been present for 4 - 6 days and indicates a pain score of Nonresponsive. MEDICAL/SURGICAL HISTORY: Cardiovascular disease. Chronic obstructive pulmonary disease. left hip fracture Pacemaker. [place] [facility] [place]. . FINDINGS: Single AP view the chest. Cardiac pacemaker remains in place. There is persistent dense left lower lo be consolidation versus atelectasis. No significant interval change. Right perihilar mass again seen. Small left pleural effusion. Cardiomediastinal silhouette unchanged. CONCLUSION: No significant interval change with persistent right perihilar mass and left lower lobe consolidation /atelectasis. Electronically signed by: Jered Rinaldi MD 07/18/2018 6:09 AM EST
[2018-07-18] MEDS: Dextrose 5% in Water Inj 1,000 ML IV.CONT SCH ×2 (07:15→20:50)
[2018-07-18 07:50] LABS: Anion Gap 9 meq/L (5-15); Blood Urea Nitrogen 8 mg/dL (7-18); Carbon Dioxide 32.2 meq/L (21.0-32.0); Chloride 100 meq/L (98-107); Glomerular Filtration Rate Greater Than 89 mL/min (>89); Glucose,Random 101 mg/dL (74-106); Sodium 141 meq/L (136-145)
[2018-07-18 07:58] LABS: Potassium 2.6 meq/L (3.5-5.1)
[2018-07-18] MEDS ORDERED: Potassium Bicarbonate 25 MEQ Effervescent Tablet PO ONE (08:15)
[2018-07-18] MEDS: Senna/Docusate Sodium 8.6/50 MG Tablet PO SCH ×2 (08:42→20:51)
[2018-07-18] MEDS: Nystatin Liq 500,000 UNIT/5 ML UDC SWISH-SWAL SCH ×4 (08:43→20:51)
[2018-07-18] MEDS: Budesonide-Formoterol 80/4.5 MCG 6.9 GM Inhaler INH SCH ×2 (08:43→20:52)
[2018-07-18] MEDS: Potassium Chlor 20 mEq Premix 20 MEQ/100 ML PIGGYBACK IV.SIG SCH ×2 (08:43→11:44)
--- NOTE | 2018-07-18 09:28 | P.PNIM ---
Subjective Interval history: follow up UTI, HCAP, demenita, severe protein calorie malnutrition, left hip closed fx s/p IM nailing, a-fib with RVR Patient seen and examined while resting in bed. She opens her eyes to verbal stimuli. Pleasant, able to follow simple commands. Denies abdominal pain, nausea or vomiting. not presently at bedside. Physical Exam Vital signs: Last Vital Signs Temp 97.2 F L 07/18/18 04:00 Pulse 76 07/18/18 04:00 Resp 18 07/18/18 04:00 BP 140/62 07/18/18 04:00 Pulse Ox 97 07/18/18 04:00 Intake & Output 07/16/18 07/17/18 07/18/18 07/19/18 06:59 06:59 06:59 06:59 Intake Total 3150 / 3150 1800 / 1800 1560 / 1560 1000 / 1000 Output Total 800 / 800 2000 / 2000 Balance 2350 / 2350 -200 / -200 1560 / 1560 1000 / 1000 Weight 52.5 kg 52.5 kg 56.7 kg Narrative: GENERAL: no acute distress, thin and frail appearing female SKIN: Warm and dry HEAD: Normocephalic, atraumatic EYES: No scleral icterus. No injection or drainage. NECK: Supple, trachea midline. No JVD or lymphadenopathy. CARDIOVASCULAR: Regular rate and rhythm without murmurs, gallops, or rubs. RESPIRATORY: Breath sounds equal bilaterally. No accessory muscle use. GASTROINTESTINAL: Abdomen soft, non-tender, nondistended. MUSCULOSKELETAL: No cyanosis, or edema. Urinary Catheter Management Indwelling Urethral Catheter: Cath placed during this visit: yes, but has since been removed by the nurse Insertion date: 07/08/18 Insertion time: 15:58 Removal date: 07/11/18 Removal time: 06:30 Female External: Cath placed during this visit: no Results Labs CBC & Chem 7: 07/17/18 05:01 07/18/18 05:30 Labs: Microbiology 07/12/18 11:05 Blood - Peripheral Aerobic Blood Culture - Final No growth in 5 days 07/12/18 11:05 Blood - Peripheral Anaerobic Blood Culture - Final QNS - See aerobic report. 07/12/18 11:10 Blood - Peripheral Aerobic Blood Culture - Final No growth in 5 days 07/12/18 11:10 Blood - Peripheral Anaerobic Blood Culture - Final QNS - See aerobic report. 07/17/18 03:40 Stool Occult Blood - Final Hemoccult negative Imaging Imaging: Impressions Chest X-Ray 07/18/18 00:00 CONCLUSION: No significant interval change with persistent right perihilar mass and left lower lobe consolidation/atelectasis. Procedures Procedures: 07/09/18- Intramedullary nail left subtrochanteric femur fracture by Dr. Herrera Assessment and Plan Plan #. Protein Calorie Malnutrition with Poor Oral Intake: suspect multifactorial with dementia, recent hip fracture, infection - reviewed 07/18/18, unchanged -speech therapy following -dietitian consulted for calorie count, completed 07/17/18 and shows avg daily intake ~ 400 kcals and 15 gms protein. This meets 27% of the low end of her nutritional needs. -IR consulted for PEG tube placement, in agreement. This will likely be completed today. -continue Ensure with meals #. Hypokalemia: K 2.6 - reviewed 07/18/18 -replete with 50 meq PO and 40 meq IV -repeat potassium level this afternoon -check EKG #. Left femur fracture s/p mechanical fall at home - reviewed 07/18/18, stable -x-rays reviewed, consistent with comminuted left intertrochanteric hip fracture. Tib-fib x-ray is normal and pelvis intact. -orthopedics consulted and following -S/P Intramedullary nail left subtrochanteric femur fracture, Dr. Herrera 07/16 -Follow up with Dr. Herrera in 2 weeks -Tylenol for pain. Avoid narcotics -PT recommends Rehab placement #. Afib with RVR: patient with hx of ablation and pacemaker, not on any rate controlling medications at home - reviewed 07/18/18, stable -per pacer needs to be checked in Nov -[facility] performed pacer check on 07/11, unremarkable, paced rhythm at 80bpm -monitor on telemetry -s/p Halicat on 07/12, given IV Cardizem 10mg x2, transferred to [facility], now back in normal sinus paced rhythm -Cardiology consulted, discussed with Dr. Aleman, no further intervention. Not a candidate for a/c due to multiple falls. -continue to monitor, has remained in sinus paced rhythm #. Hypoxia: acute, patient with episodes of hypoxia as low as 87%. Suspect secondary to pneumonia and lung mass - reviewed 07/18/18, resolved -D-dimer elevated at 4.76, chest CTA showed mass and pneumonia, no PE, see below -pulmonology consulted, started on duonebs q6h, Symbicort bid -O2 as needed #. Sepsis: acute. Suspect secondary to UTI and HCAP - reviewed 07/18/18, resolved -patient met sepsis criteria with WBC 13K, tachycardia, fever 100.5 -lactic acid 1.6 -UA remarkable for UTI however urine culture with mixed uzma -Blood cultures with NGTD -Repeat CXR 07/12 shows worsening consolidation -Chest CTA 07/13 showed perihilar mass and consolidation of LLL consistent with pneumonia -Changed antibiotics to IV Zosyn and IV Vanco with pharmacy consult, these were d/c'd 07/17/18 -pulmonology following, recommended continuing antibiotics for 5 days ( complete) #. Perihilar Mass: concern for bronchogenic carcinoma - reviewed 07/17/18, unchanged -Chest CTA 07/13 showed Right perihilar mass measuring 3.8 x 4.6 x 3.1 cm is suspicious for bronchogenic carcinoma until proven otherwise -Consulted pulmonology and palliative care, greatly appreciate assistance - has opted not to proceed with biopsy at this time #. Lewy body dementia with failure to thrive, malnutrition - reviewed 07/17/18 -Continue with vitamin B12 1000mcg bid, Namenda 2.5 twice daily -Consulted palliative care for goals of treatment, per goals remain aggressive at this time #. Hypernatremia - reviewed 07/17/18, resolved -patient was previously on IVF with NS, changed to Dextrose 5% in water -repeat Na 138, resolved -continue to monitor BMP #. Acute Normocytic Anemia - reviewed 07/17/18, stable -given 1u pRBC transfusion -stool hemoccult negative -iron studies consistent with chronic anemia -repeat CBC shows improvement with Hgb 11.0 #. Vitamin D Deficiency: -give ergocalciferol 50,000u q7d MDM: spouse Code: DNR GI ppx: PO intake DVT Prophylaxis: Lovenox sq Progress Note: Quality VTE Deep Vein Thrombosis/Pulmonary Embolism Present on Admission: No
--- NOTE | 2018-07-18 16:04 | P.DIET ---
Nutritional Evaluation Type of nutrition evaluation: follow-up Nutrition consult regarding: Tube Feeding Nutrition [place] [facility] [place] Screening comments: [place] [facility] [place] Counting: completed 07/17 RN request/consult for TF recs d/t pt having poor PO intake as indicated on calorie count and getting PEG tube placement Objective - Diagnosis L hip Fx - Objective % IBW: 94 (IBW = 94%) Body Weight Used for Calculations: Actual (53.4 kg) Energy Needs - Lower Range (kCal/kg): 28 Energy Needs - Upper Range (kCal/kg): 32 Lower Limit kCal/kg (kCals): 1,495 Upper Limit kCal/kg (kCals): 1,709 Lower Limit Protein Factor (Grams per Kg): 1.0 Upper Limit Protein Factor (Grams per Kg): 1.5 Lower Protein Needs (Protein): 53 Upper Protein Needs (Protein): 80 Fluid Factor (ml/kg): 32 Estimated Fluid Needs (ml): 1,709 Dietitian Reviewed in Medical Record: Current diet, Curent medications, Intake & Output, Labs, Medical history Diet Order: NPO Objective Comments: PMH: AFIB, breast CA, COPD, lewy body dementia, pacemaker Assessment Assessment: RD consulted for TF recommendations by RN via phone. Pt is shown to have little PO intake from calorie count (average daily intake is only ~ 400 kcals and 15 gms protein, meeting around 27% of nutritional needs). Pt pending on PEG placement for TF'ing. When pt receives PEG tube, RD recommends Jevity 1.5 @ 45mL /hr to provide 1620kcal, 69g of protein, and 821mL of free water to best meet pts nutritional needs. Will monitor for TF tolerance. Labs reviewed, dietitian following. Recommendations: 1. When pt receives PEG tube, RD recommends Jevity 1.5 @ 45mL/hr to best meet pts nutritional needs 2. Will monitor for TF tolerance 3. Dietitian following Dietitian to Monitor: Lab values, Intake & Output, Tube feeding tolerance, Weight change, Medical course
--- NOTE | 2018-07-18 19:31 | P.PN ---
Subjective Interval history: Awake and confused. Off O2 sat 96. Has left leg swelling. Physical Exam Vital signs: Vital Signs 07/17/18 20:00 07/17/18 21:57 07/18/18 00:00 Temperature 98.3 F 97.8 F Pulse Rate 82 86 80 Respiratory Rate 18 16 18 Blood Pressure 132/68 117/55 L Pulse Oximetry 93 L 92 L 97 07/18/18 04:00 07/18/18 09:00 07/18/18 09:59 Temperature 97.2 F L 97.9 F Pulse Rate 76 83 83 Respiratory Rate 18 16 Blood Pressure 140/62 149/66 H Pulse Oximetry 97 96 07/18/18 12:00 07/18/18 16:00 Temperature 98.0 F 98.2 F Pulse Rate 80 82 Respiratory Rate 16 16 Blood Pressure 146/66 H 144/68 H Pulse Oximetry 97 98 Intake & Output 07/18/18 07/18/18 07/19/18 06:59 18:59 06:59 Intake Total 60 / 60 1962 / 1962 Output Total 600 / 600 Balance 60 / 60 1362 / 1362 Weight 56.7 kg Intake: IV 1722 / 1722 D5W Inj 1,000 ML @ 84 mls/hr IV 1522 / 1522 .CONT .[id number] HELEN Rx#:[id number] KCl 20 mEq Premix Inj 20 meq In 200 / 200 100 ml @ 50 mls/hr IV.SIG Q2H HELEN Rx#:[id number] Oral 60 / 60 240 / 240 Output: Urine 600 / 600 Other: # Voids 850 Date of Last Bowel Movement 07/17/18 07/18/18 # Bowel Movements 1 1 Narrative: GENERAL: no acute distress, thin elderly and frail appearing female SKIN: Warm and dry HEAD: Normocephalic, atraumatic EYES: No scleral icterus. No injection or drainage. NECK: Supple, trachea midline. No JVD or lymphadenopathy. CARDIOVASCULAR: Regular rate and rhythm without murmurs, gallops, or rubs. RESPIRATORY: Breath sounds decreased bilaterally. No accessory muscle use. GASTROINTESTINAL: Abdomen soft, non-tender, nondistended. MUSCULOSKELETAL: No cyanosis, or but has left leg and thigh edema Neuro : Confused - Urinary Catheter Management Indwelling Urethral Catheter Cath placed during this visit: yes, but has since been removed by the nurse Reason for continuing: Decision to DC catheter Insertion date: 07/08/18 Insertion time: 15:58 Removal date: 07/11/18 Removal time: 06:30 Female External Cath placed during this visit: no Results - Labs CBC & Chem 7: 07/17/18 05:01 07/18/18 15:12 Laboratory Results - last 24 hr 07/18/18 07/18/18 05:30 15:12 Sodium 141 Potassium 2.6 L* 3.6 D Chloride 100 Carbon Dioxide 32.2 H Anion Gap 9 BUN 8 Creatinine 0.62 Estimated GFR Greater than 89 Random Glucose 101 Calcium 8.0 L - Imaging Impressions Chest X-Ray 07/18/18 00:00 CONCLUSION: No significant interval change with persistent right perihilar mass and left lower lobe consolidation/atelectasis. - Procedures 07/09/18- Intramedullary nail left subtrochanteric femur fracture by Dr. Herrera Assessment and Plan - Assessment (1) COPD (chronic obstructive pulmonary disease) Code(s): J44.9 - Chronic obstructive pulmonary disease, unspecified Status: Acute (2) Mass of left lung Code(s): R91.8 - Other nonspecific abnormal finding of lung field Status: Acute (3) Closed fracture of left hip Code(s): S72.002A - Fracture of unspecified part of neck of left femur, initial encounter for closed fracture Status: Acute (4) Pain Code(s): R52 - Pain, unspecified Status: Acute (5) History of hysterectomy Code(s): Z90.710 - Acquired absence of both cervix and uterus Status: Acute (6) Urinary tract infection Code(s): N39.0 - Urinary tract infection, site not specified Status: Acute (7) Lewy body dementia Code(s): G31.83 - Dementia with Lewy bodies; F02.80 - Dementia in other diseases classified elsewhere without behavioral disturbance Status: Acute (8) Atrial fibrillation with RVR Code(s): I48.91 - Unspecified atrial fibrillation Status: Acute (9) Sepsis Code(s): A41.9 - Sepsis, unspecified organism Status: Acute (10) Protein calorie malnutrition Code(s): E46 - Unspecified protein-calorie malnutrition Status: Acute (11) Pneumonia Code(s): J18.9 - Pneumonia, unspecified organism Status: Acute - Plan 1. Will leave on O2 2 L.PRN 2. Duoneb nebs tid 3. Cont Symbicort 160/4.5 mcg , 1 puff bid 4. Will consider Biopsy of lung mass if is agreeable 5. Palliative care to see 6. PT evaluation for activity (3) Closed fracture of left hip Qualifiers: Encounter type: initial encounter Qualified Code(s): S72.002A - Fracture of unspecified part of neck of left femur, initial encounter for closed fracture
[2018-07-18 19:43] LABS: Baso # (Auto) 0.1 th/mm3 (0.0-0.2); Baso % (Auto) 0.9 % (0.0-2.0); Eos # (Auto) 0.3 th/mm3 (0.0-0.4); Eos % (Auto) 2.1 % (0.0-4.0); Hemoglobin 10.2 gm/dL (11.6-15.3); Lymph # (Auto) 1.7 th/mm3 (1.0-4.8); Lymph % (Auto) 13.8 % (9.0-44.0); Mean Corpuscular HGB Conc 32.9 % (32.0-36.0); Mean Corpuscular Hemoglobin 28.6 pg (27.0-34.0); Mean Corpuscular Volume 86.8 fL (80.0-100.0); Mean Platelet Volume 8.1 fL (7.0-11.0); Mono # (Auto) 1.7 th/mm3 (0.0-0.9); Mono % (Auto) 13.7 % (0.0-8.0); Neut # (Auto) 8.7 th/mm3 (1.8-7.7); Neut % (Auto) 69.5 % (16.0-70.0); Platelet Count 628 th/mm3 (150-450); Red Blood Count 3.57 mil/mm3 (4.00-5.30); Red Cell Distribution Width 14.8 % (11.6-17.2); White Blood Count 12.5 th/mm3 (4.0-11.0)
[2018-07-19] MEDS: Dextrose 5% in Water Inj 1,000 ML IV.CONT SCH ×3 (00:59→19:21)
[2018-07-19 05:59] LABS: Glomerular Filtration Rate Greater Than 89 mL/min (>89)
[2018-07-19] MEDS: Enoxaparin Inj 40 MG/0.4 ML Syringe SQ SCH (10:42)
[2018-07-19] MEDS: Senna/Docusate Sodium 8.6/50 MG Tablet PO SCH ×2 (11:39→22:34)
[2018-07-19] MEDS: Budesonide-Formoterol 80/4.5 MCG 6.9 GM Inhaler INH SCH ×2 (11:40→22:34)
[2018-07-19] MEDS: Nystatin Liq 500,000 UNIT/5 ML UDC SWISH-SWAL SCH ×4 (11:42→22:33)
--- NOTE | 2018-07-19 14:04 | P.PNIM ---
Subjective Interval history: Follow up UTI, HCAP, dementia, severe protein calorie malnutrition, left hip closed fx s/p IM nailing, a-fib with RVR Patient is resting in bed. She is mumbling some words that are incomprehensible. not currently at bedside. Her oral intake has improved. considering rehab placement and in process of considering facilities according to CM. No acute distress noted. Vital signs stable. Physical Exam Vital signs: Last Vital Signs Temp 98 F 07/19/18 12:00 Pulse 85 07/19/18 12:00 Resp 17 07/19/18 12:00 BP 155/67 H 07/19/18 12:00 Pulse Ox 92 L 07/19/18 12:00 Intake & Output 07/17/18 07/18/18 07/19/18 07/20/18 06:59 06:59 06:59 06:59 Intake Total 1800 / 1800 1560 / 1560 2440 / 2440 Output Total 1999 / 1999 1800 / 1800 Balance -200 / -200 1560 / 1560 640 / 640 Weight 52.5 kg 56.7 kg 56.7 kg Narrative: GENERAL: no acute distress, thin elderly and frail appearing female SKIN: Warm and dry HEAD: Normocephalic, atraumatic EYES: No scleral icterus. No injection or drainage. NECK: Supple, trachea midline. No JVD or lymphadenopathy. CARDIOVASCULAR: Regular rate and rhythm without murmurs, gallops, or rubs. RESPIRATORY: Breath sounds decreased bilaterally. No accessory muscle use. GASTROINTESTINAL: Abdomen soft, non-tender, nondistended. MUSCULOSKELETAL: No cyanosis Neuro: Confused Urinary Catheter Management Indwelling Urethral Catheter: Cath placed during this visit: yes, but has since been removed by the nurse Insertion date: 07/08/18 Insertion time: 15:58 Removal date: 07/11/18 Removal time: 06:30 Female External: Cath placed during this visit: no Results Labs CBC & Chem 7: 07/18/18 19:23 07/19/18 05:08 Procedures Procedures: 07/09/18- Intramedullary nail left subtrochanteric femur fracture by Dr. Herrera Assessment and Plan Plan #. Protein Calorie Malnutrition with Poor Oral Intake: suspect multifactorial with dementia, recent hip fracture, infection - reviewed 07/19/18, unchanged -speech therapy following -dietitian consulted for calorie count, completed 07/17/18 and shows avg daily intake ~ 400 kcals and 15 gms protein. This meets 27% of the low end of her nutritional needs. -discussed PEG tube placement with , however, he states he does not wish for patient to undergo anything invasive at present time. He would like to see if her oral intake will improve and would like to attempt NGT first if needed. -Megace added -continue Ensure with meals #. Hypokalemia: K 3.6 - reviewed 07/19/18 -repleted with 50 meq PO and 40 meq IV -repeat BMP in am #. Left femur fracture s/p mechanical fall at home - reviewed 07/19/18, stable -x-rays reviewed, consistent with comminuted left intertrochanteric hip fracture. Tib-fib x-ray is normal and pelvis intact. -orthopedics consulted and following -S/P Intramedullary nail left subtrochanteric femur fracture, Dr. Herrera 07/16 -Follow up with Dr. Herrera in 2 weeks -Tylenol for pain. Avoid narcotics -PT recommends Rehab placement #. Afib with RVR: patient with hx of ablation and pacemaker, not on any rate controlling medications at home - reviewed 07/19/18, stable -per pacer needs to be checked in Nov [place] performed pacer check on 07/11, unremarkable, paced rhythm at 80bpm -monitor on telemetry -s/p Halicat on 07/12, given IV Cardizem 10mg x2, transferred to [facility], now back in normal sinus paced rhythm -Cardiology consulted, discussed with Dr. Aleman, no further intervention. Not a candidate for a/c due to multiple falls. -continue to monitor, has remained in sinus paced rhythm #. Hypoxia: acute, patient with episodes of hypoxia as low as 87%. Suspect secondary to pneumonia and lung mass - reviewed 07/19/18, resolved -D-dimer elevated at 4.76, chest CTA showed mass and pneumonia, no PE, see below -pulmonology consulted, started on duonebs q6h, Symbicort bid -O2 as needed #. Sepsis: acute, suspect secondary to UTI and HCAP - reviewed 07/19/18, resolved -patient met sepsis criteria with WBC 13K, tachycardia, fever 100.5 -lactic acid 1.6 -UA remarkable for UTI however urine culture with mixed uzma -Blood cultures with NGTD -Repeat CXR 07/12 shows worsening consolidation -Chest CTA 07/13 showed perihilar mass and consolidation of LLL consistent with pneumonia -Changed antibiotics to IV Zosyn and IV Vanco with pharmacy consult, these were d/c'd 07/17/18 -pulmonology following, recommended continuing antibiotics for 5 days ( complete) #. Perihilar Mass: concern for bronchogenic carcinoma - reviewed 07/19/18, unchanged -Chest CTA 07/13 showed Right perihilar mass measuring 3.8 x 4.6 x 3.1 cm is suspicious for bronchogenic carcinoma until proven otherwise -Consulted pulmonology and palliative care, greatly appreciate assistance - has opted not to proceed with biopsy at this time #. Lewy body dementia with failure to thrive, malnutrition - reviewed 07/19/18 -Continue with vitamin B12 1000mcg bid, Namenda 2.5 twice daily -Consulted palliative care for goals of treatment, per goals remain aggressive at this time #. Hypernatremia - reviewed 07/17/18, resolved -patient was previously on IVF with NS, changed to Dextrose 5% in water -repeat Na 138, resolved -continue to monitor BMP #. Acute Normocytic Anemia - reviewed 07/17/18, stable -given 1u pRBC transfusion -stool hemoccult negative -iron studies consistent with chronic anemia -repeat CBC shows improvement with Hgb 11.0 #. Vitamin D Deficiency: -give ergocalciferol 50,000u q7d MDM: spouse Code: DNR GI ppx: PO intake DVT Prophylaxis: Lovenox sq Progress Note: Quality VTE Deep Vein Thrombosis/Pulmonary Embolism Present on Admission: No
--- NOTE | 2018-07-19 18:45 | P.PN ---
Subjective Interval history: Awake and confused. Has a fever. Pulls off Clothes and O2. Able to take a soft diet. Physical Exam Vital signs: Vital Signs 07/18/18 20:00 07/18/18 20:08 07/18/18 23:15 Temperature 97.4 F L 98.1 F Pulse Rate 83 83 83 Respiratory Rate 22 20 Blood Pressure 162/72 H 135/74 Pulse Oximetry 98 94 L 07/18/18 23:56 07/19/18 01:45 07/19/18 04:00 Temperature Pulse Rate 82 82 Respiratory Rate 17 Blood Pressure Pulse Oximetry 07/19/18 04:25 07/19/18 08:00 07/19/18 12:00 Temperature 98 F 98.2 F 98 F Pulse Rate 83 84 85 Respiratory Rate 20 17 17 Blood Pressure 141/63 H 152/72 H 155/67 H Pulse Oximetry 93 L 92 L 92 L 07/19/18 16:00 Temperature 99.6 F Pulse Rate 83 Respiratory Rate 17 Blood Pressure 143/65 H Pulse Oximetry 94 L Intake & Output 07/18/18 07/19/18 07/19/18 18:59 06:59 18:59 Intake Total 1962 / 1962 478 / 478 Output Total 600 / 600 1200 / 1200 450 / 450 Balance 1362 / 1362 -722 / -722 -450 / -450 Weight 56.7 kg Intake: IV 1722 / 1722 478 / 478 D5W Inj 1,000 ML @ 84 mls/hr IV 1522 / 1522 478 / 478 .CONT .[id number] [facility] Rx#:[id number] KCl 20 mEq Premix Inj 20 meq In 200 / 200 100 ml @ 50 mls/hr IV.SIG Q2H [facility] Rx#:[id number] Oral 240 / 240 Output: Urine 600 / 600 1200 / 1200 450 / 450 Other: Date of Last Bowel Movement 07/18/18 07/18/18 # Bowel Movements 1 Narrative: GENERAL: no acute distress, thin elderly and frail appearing female SKIN: Warm and dry HEAD: Normocephalic, atraumatic EYES: No scleral icterus. No injection or drainage. NECK: Supple, trachea midline. No JVD or lymphadenopathy. CARDIOVASCULAR: Regular rate and rhythm without murmurs, gallops, or rubs. RESPIRATORY: Breath sounds decreased bilaterally. Occ Basal crackles.No accessory muscle use. GASTROINTESTINAL: Abdomen soft, non-tender, nondistended. MUSCULOSKELETAL: No cyanosis Neuro: Confused - Urinary Catheter Management Indwelling Urethral Catheter Cath placed during this visit: yes, but has since been removed by the nurse Reason for continuing: Decision to DC catheter Insertion date: 07/08/18 Insertion time: 15:58 Removal date: 07/11/18 Removal time: 06:30 Female External Cath placed during this visit: no Results - Labs CBC & Chem 7: 07/18/18 19:23 07/19/18 05:08 Laboratory Results - last 24 hr 07/18/18 07/19/18 19:23 05:08 WBC 12.5 H RBC 3.57 L Hgb 10.2 L Hct 31.0 L MCV 86.8 MCH 28.6 MCHC 32.9 RDW 14.8 Plt Count 628 H MPV 8.1 Neut % (Auto) 69.5 Lymph % (Auto) 13.8 [place] % (Auto) 13.7 H Eos % (Auto) 2.1 Baso % (Auto) 0.9 Neut # (Auto) 8.7 H Lymph # (Auto) 1.7 [place] # (Auto) 1.7 H Eos # (Auto) 0.3 Baso # (Auto) 0.1 WBC Differential . Differential Comment Auto diff final Creatinine 0.55 Estimated GFR Greater than 89 - Procedures 07/09/18- Intramedullary nail left subtrochanteric femur fracture by Dr. Herrera Assessment and Plan - Assessment (1) COPD (chronic obstructive pulmonary disease) Code(s): J44.9 - Chronic obstructive pulmonary disease, unspecified Status: Acute (2) Mass of left lung Code(s): R91.8 - Other nonspecific abnormal finding of lung field Status: Acute (3) Closed fracture of left hip Code(s): S72.002A - Fracture of unspecified part of neck of left femur, initial encounter for closed fracture Status: Acute (4) Pain Code(s): R52 - Pain, unspecified Status: Acute (5) History of hysterectomy Code(s): Z90.710 - Acquired absence of both cervix and uterus Status: Acute (6) Urinary tract infection Code(s): N39.0 - Urinary tract infection, site not specified Status: Acute (7) Lewy body dementia Code(s): G31.83 - Dementia with Lewy bodies; F02.80 - Dementia in other diseases classified elsewhere without behavioral disturbance Status: Acute (8) Atrial fibrillation with RVR Code(s): I48.91 - Unspecified atrial fibrillation Status: Acute (9) Sepsis Code(s): A41.9 - Sepsis, unspecified organism Status: Acute (10) Protein calorie malnutrition Code(s): E46 - Unspecified protein-calorie malnutrition Status: Acute (11) Pneumonia Code(s): J18.9 - Pneumonia, unspecified organism Status: Acute - Plan 1. Will leave on O2 2 L.PRN 2. Duoneb nebs tid 3. Cont Symbicort 160/4.5 mcg , 1 puff bid 4. Get Chest Xray in am. 5. Add Doxycycline 100 mg BID PO for pneumonia 6. PT evaluation for activity (3) Closed fracture of left hip Qualifiers: Encounter type: initial encounter Qualified Code(s): S72.002A - Fracture of unspecified part of neck of left femur, initial encounter for closed fracture
--- NOTE | 2018-07-19 20:04 | XR ---
EXAM DATE: 07/19/2018 8:00 PM EST AGE/SEX: 77 years / Female INDICATIONS: Shortness of breath CLINICAL DATA: This is the patient's subsequent encounter. Patient reports that signs and symptoms h ave been present for 4 - 6 days and indicates a pain score of Nonresponsive. MEDICAL/SURGICAL HISTORY: . Cardiovascular disease. Chronic obstructive pulmonary disease. Pac emaker. COMPARISON: [facility], CTA PULMONARY W CONTRAST W 3D, 07/13/2018. . FINDINGS: Patchy consolidation of the right upper lobe and left base not significantly changed. Right perihilar mass is also not significantly changed. Small left pleural effusion is suspected. No pneumothorax. Heart size stable, within normal limits. Thoracic aorta is tortuous and atherosclerotic. A cardiac pa cer is again noted. CONCLUSION: No significant change right mid lung mass, right upper lobe and left base consolidation and small lef t pleural effusion. Electronically signed by: Sean Calderon MD 07/19/2018 8:03 PM EST
[2018-07-20 05:39] LABS: Baso # (Auto) 0.1 th/mm3 (0.0-0.2); Baso % (Auto) 0.8 % (0.0-2.0); Eos # (Auto) 0.1 th/mm3 (0.0-0.4); Eos % (Auto) 0.6 % (0.0-4.0); Hematocrit 29.1 % (35.0-46.0); Hemoglobin 9.7 gm/dL (11.6-15.3); Lymph # (Auto) 2.1 th/mm3 (1.0-4.8); Lymph % (Auto) 14.6 % (9.0-44.0); Mean Corpuscular HGB Conc 33.4 % (32.0-36.0); Mean Corpuscular Hemoglobin 29.5 pg (27.0-34.0); Mean Corpuscular Volume 88.4 fL (80.0-100.0); Mean Platelet Volume 8.3 fL (7.0-11.0); Mono # (Auto) 2.2 th/mm3 (0.0-0.9); Mono % (Auto) 15.1 % (0.0-8.0); Neut # (Auto) 10.1 th/mm3 (1.8-7.7); Neut % (Auto) 68.9 % (16.0-70.0); Platelet Count 606 th/mm3 (150-450); Red Blood Count 3.29 mil/mm3 (4.00-5.30); Red Cell Distribution Width 15.1 % (11.6-17.2); White Blood Count 14.7 th/mm3 (4.0-11.0)
[2018-07-20 06:11] LABS: Anion Gap 6 meq/L (5-15); Blood Urea Nitrogen 8 mg/dL (7-18); Calcium 8.1 mg/dL (8.5-10.1); Carbon Dioxide 29.7 meq/L (21.0-32.0); Chloride 101 meq/L (98-107); Glomerular Filtration Rate Greater Than 89 mL/min (>89); Glucose,Random 93 mg/dL (74-106); Potassium 3.5 meq/L (3.5-5.1); Sodium 137 meq/L (136-145)
[2018-07-20] MEDS: Dextrose 5% in Water Inj 1,000 ML IV.CONT SCH ×2 (06:50→19:56)
[2018-07-20 07:16] LABS: Eosinophils 1 % (0-4); Lymphocytes 16 % (9-44); Monocytes 13 % (0-8); Platelet Morphology Normal (Normal); RBC Morphology Normal (Normal)
[2018-07-20] MEDS: Enoxaparin Inj 40 MG/0.4 ML Syringe SQ SCH (09:07)
[2018-07-20] MEDS: Budesonide-Formoterol 80/4.5 MCG 6.9 GM Inhaler INH SCH ×2 (09:10→20:30)
[2018-07-20] MEDS: Senna/Docusate Sodium 8.6/50 MG Tablet PO SCH ×2 (09:10→20:29)
[2018-07-20] MEDS: Nystatin Liq 500,000 UNIT/5 ML UDC SWISH-SWAL SCH ×4 (09:10→20:29)
--- NOTE | 2018-07-20 11:56 | P.PNIM ---
Subjective Interval history: Follow up protein calorie malnutrition, leukocytosis, pneumonia, dementia Patient resting in bed with eyes closed. She arouses to repeated verbal stimuli and gentle touch. She mumbles. Complains of pain when being touched gently. No edema noted. Patient with continued poor oral intake. Megace added but will discuss need for possible NG/DHT placement with . Concern for pneumonia as patient with elevated WBC and chest x-ray shows right upper lobe and left base consolidation. Physical Exam Vital signs: Last Vital Signs Temp 97.9 F 07/20/18 08:00 Pulse 85 07/20/18 08:00 Resp 16 07/20/18 08:00 BP 145/65 H 07/20/18 10:24 Pulse Ox 97 07/20/18 09:00 Intake & Output 07/18/18 07/19/18 07/20/18 07/21/18 06:59 06:59 06:59 06:59 Intake Total 1560 / 1560 2440 / 2440 2000 / 2000 Output Total 1800 / 1800 650 / 650 Balance 1560 / 1560 640 / 640 1350 / 1350 Weight 56.7 kg 56.7 kg 54.4 kg Narrative: GENERAL: no acute distress, thin elderly and frail appearing female , gen weakness SKIN: Warm and dry HEAD: Normocephalic, atraumatic EYES: No scleral icterus. No injection or drainage. NECK: Supple, trachea midline. No JVD or lymphadenopathy. CARDIOVASCULAR: Regular rate and rhythm without murmurs, gallops, or rubs. RESPIRATORY: Breath sounds decreased bilaterally. Occ Basal crackles.No accessory muscle use. GASTROINTESTINAL: Abdomen soft, non-tender, nondistended. MUSCULOSKELETAL: No cyanosis Neuro: Confused Urinary Catheter Management Indwelling Urethral Catheter: Cath placed during this visit: yes, but has since been removed by the nurse Insertion date: 07/08/18 Insertion time: 15:58 Removal date: 07/11/18 Removal time: 06:30 Female External: Cath placed during this visit: no Results Labs CBC & Chem 7: 07/20/18 04:53 07/20/18 04:53 Imaging Imaging: Impressions Chest X-Ray 07/19/18 00:00 CONCLUSION: No significant change right mid lung mass, right upper lobe and left base consolidation and small left pleural effusion. Procedures Procedures: 07/09/18- Intramedullary nail left subtrochanteric femur fracture by Dr. Herrera Assessment and Plan Plan #. Protein Calorie Malnutrition with Poor Oral Intake: suspect multifactorial with dementia, recent hip fracture, infection - reviewed 07/19/18, unchanged -speech therapy following -dietitian consulted for calorie count, completed 07/17/18 and shows avg daily intake ~ 400 kcals and 15 gms protein. This meets 27% of the low end of her nutritional needs. -discussed PEG tube placement with , however, he states he does not wish for patient to undergo anything invasive at present time. He would like to see if her oral intake will improve and would like to attempt NGT first if needed. -Megace added -continue Ensure with meals #. Pneumonia, suspected - reviewed 07/20/18 -CXR 07/19/18 shows right upper lobe and left base consolidation and small left pleural effusion. -continue Doxycycline, switched to IV as patient not taking PO meds -supplemental O2 PRN, duoneb scheduled -pulmonary consulted and following, we appreciate their input #. Hypokalemia: K 3.5 - reviewed 07/20/18, stable -repeat BMP in am #. Left femur fracture s/p mechanical fall at home - reviewed 07/20/18, stable -x-rays reviewed, consistent with comminuted left intertrochanteric hip fracture. Tib-fib x-ray is normal and pelvis intact. -orthopedics consulted and following -S/P Intramedullary nail left subtrochanteric femur fracture, Dr. Herrera 07/16 -Follow up with Dr. Herrera in 2 weeks -Tylenol for pain. Avoid narcotics -PT recommends Rehab placement #. Afib with RVR: patient with hx of ablation and pacemaker, not on any rate controlling medications at home - reviewed 07/20/18, stable -per pacer needs to be checked in Nov -[facility] performed pacer check on 07/11, unremarkable, paced rhythm at 80bpm -monitor on telemetry -s/p Halicat on 07/12, given IV Cardizem 10mg x2, transferred to [facility], now back in normal sinus paced rhythm -Cardiology consulted, discussed with Dr. Aleman, no further intervention. Not a candidate for a/c due to multiple falls. -continue to monitor, has remained in sinus paced rhythm #. Hypoxia: acute, patient with episodes of hypoxia as low as 87%. Suspect secondary to pneumonia and lung mass - reviewed 07/19/18, resolved -D-dimer elevated at 4.76, chest CTA showed mass and pneumonia, no PE, see below -pulmonology consulted, started on duonebs q6h, Symbicort bid -O2 as needed #. Sepsis: acute, suspect secondary to UTI and HCAP - reviewed 07/19/18, resolved -patient met sepsis criteria with WBC 13K, tachycardia, fever 100.5 -lactic acid 1.6 -UA remarkable for UTI however urine culture with mixed uzma -Blood cultures with NGTD -Repeat CXR 07/12 shows worsening consolidation -Chest CTA 07/13 showed perihilar mass and consolidation of LLL consistent with pneumonia -Changed antibiotics to IV Zosyn and IV Vanco with pharmacy consult, these were d/c'd 07/17/18 -pulmonology following, recommended continuing antibiotics for 5 days ( complete) #. Perihilar Mass: concern for bronchogenic carcinoma - reviewed 07/19/18, unchanged -Chest CTA 07/13 showed Right perihilar mass measuring 3.8 x 4.6 x 3.1 cm is suspicious for bronchogenic carcinoma until proven otherwise -Consulted pulmonology and palliative care, greatly appreciate assistance - has opted not to proceed with biopsy at this time #. Lewy body dementia with failure to thrive, malnutrition - reviewed 07/20/18 -Continue with vitamin B12 1000mcg bid, Namenda 2.5 twice daily -Consulted palliative care for goals of treatment, per goals remain aggressive at this time #. Hypernatremia - reviewed 07/17/18, resolved -patient was previously on IVF with NS, changed to Dextrose 5% in water -repeat Na 138, resolved -continue to monitor BMP #. Acute Normocytic Anemia - reviewed 07/17/18, stable -given 1u pRBC transfusion -stool hemoccult negative -iron studies consistent with chronic anemia -repeat CBC shows improvement with Hgb 11.0 #. Vitamin D Deficiency: -give ergocalciferol 50,000u q7d MDM: spouse Code: DNR GI ppx: PO intake DVT Prophylaxis: Lovenox sq Progress Note: Quality VTE Deep Vein Thrombosis/Pulmonary Embolism Present on Admission: No
--- NOTE | 2018-07-20 15:46 | P.PN ---
Subjective Interval history: Seems stable on O2 3 L. takes some soft diet. No Aspiration. No fever today Physical Exam Vital signs: Vital Signs 07/19/18 16:00 07/19/18 20:00 07/19/18 20:01 Temperature 99.6 F 98.4 F Pulse Rate 83 84 84 Respiratory Rate 17 17 Blood Pressure 143/65 H 127/94 H Pulse Oximetry 94 L 95 07/19/18 20:15 07/20/18 00:00 07/20/18 00:05 Temperature 98.8 F Pulse Rate 81 82 Respiratory Rate 16 Blood Pressure 116/58 L Pulse Oximetry 96 93 L 07/20/18 04:00 07/20/18 05:10 07/20/18 08:00 Temperature 97.9 F 97.9 F Pulse Rate 85 82 85 Respiratory Rate 18 16 Blood Pressure 144/71 H 182/101 H Pulse Oximetry 93 L 90 L 07/20/18 09:00 07/20/18 10:24 07/20/18 12:00 Temperature 98.3 F Pulse Rate 88 Respiratory Rate 16 Blood Pressure 145/65 H 134/61 Pulse Oximetry 97 90 L 07/20/18 15:25 Temperature Pulse Rate 63 Respiratory Rate 19 Blood Pressure Pulse Oximetry Intake & Output 07/19/18 07/20/18 07/20/18 18:59 06:59 18:59 Intake Total 1000 / 1000 1000 / 1000 Output Total 450 / 450 200 / 200 Balance 550 / 550 800 / 800 Weight 54.4 kg Intake: IV 1000 / 1000 1000 / 1000 D5W Inj 1,000 ML @ 84 mls/hr IV 1000 / 1000 1000 / 1000 .CONT .[id number] [facility] Rx#:[id number] Output: Urine 450 / 450 200 / 200 Other: # Incontinent Voids 4 Date of Last Bowel Movement 07/19/18 # Incontinent Bowel Movements 2 Narrative: GENERAL: Thin elderly and frail appearing female, lethargic. SKIN: Warm and dry HEAD: Normocephalic, atraumatic EYES: No scleral icterus. No injection or drainage. NECK: Supple, trachea midline. No JVD or lymphadenopathy. CARDIOVASCULAR: Regular rate and rhythm without murmurs, gallops, or rubs. RESPIRATORY: Breath sounds decreased bilaterally. Occ Basal crackles.No accessory muscle use. GASTROINTESTINAL: Abdomen soft, non-tender, nondistended. MUSCULOSKELETAL: No cyanosis Neuro: Confused - Urinary Catheter Management Indwelling Urethral Catheter Cath placed during this visit: yes, but has since been removed by the nurse Reason for continuing: Decision to DC catheter Insertion date: 07/08/18 Insertion time: 15:58 Removal date: 07/11/18 Removal time: 06:30 Female External Cath placed during this visit: no Results - Labs CBC & Chem 7: 07/20/18 04:53 07/20/18 04:53 Laboratory Results - last 24 hr 07/20/18 07/20/18 04:53 04:53 WBC 14.7 H RBC 3.29 L Hgb 9.7 L Hct 29.1 L MCV 88.4 MCH 29.5 MCHC 33.4 RDW 15.1 Plt Count 606 H MPV 8.3 Prelim Diff (Auto) Slide review pending Neut % (Auto) 68.9 Lymph % (Auto) 14.6 [place] % (Auto) 15.1 H Eos % (Auto) 0.6 Baso % (Auto) 0.8 Neut # (Auto) 10.1 H Lymph # (Auto) 2.1 [place] # (Auto) 2.2 H Eos # (Auto) 0.1 Baso # (Auto) 0.1 WBC Differential Manual diff final Seg Neuts % (Manual) 69 Lymphocytes % (Manual) 16 Monocytes % (Manual) 13 H Eosinophils % (Manual) 1 Basophils % (Manual) 1 Abs Neuts (Manual) 10.1 H Differential Comment . Platelet Estimate High H Platelet Morphology Normal RBC Morphology Normal Sodium 137 Potassium 3.5 Chloride 101 Carbon Dioxide 29.7 Anion Gap 6 BUN 8 Creatinine 0.59 Estimated GFR Greater than 89 Random Glucose 93 Calcium 8.1 L - Imaging Impressions Chest X-Ray 07/19/18 00:00 CONCLUSION: No significant change right mid lung mass, right upper lobe and left base consolidation and small left pleural effusion. - Procedures 07/09/18- Intramedullary nail left subtrochanteric femur fracture by Dr. Herrera Assessment and Plan - Assessment (1) COPD (chronic obstructive pulmonary disease) Code(s): J44.9 - Chronic obstructive pulmonary disease, unspecified Status: Acute (2) Mass of left lung Code(s): R91.8 - Other nonspecific abnormal finding of lung field Status: Acute (3) Closed fracture of left hip Code(s): S72.002A - Fracture of unspecified part of neck of left femur, initial encounter for closed fracture Status: Acute (4) Pain Code(s): R52 - Pain, unspecified Status: Acute (5) History of hysterectomy Code(s): Z90.710 - Acquired absence of both cervix and uterus Status: Acute (6) Urinary tract infection Code(s): N39.0 - Urinary tract infection, site not specified Status: Acute (7) Lewy body dementia Code(s): G31.83 - Dementia with Lewy bodies; F02.80 - Dementia in other diseases classified elsewhere without behavioral disturbance Status: Acute (8) Atrial fibrillation with RVR Code(s): I48.91 - Unspecified atrial fibrillation Status: Acute (9) Sepsis Code(s): A41.9 - Sepsis, unspecified organism Status: Acute (10) Protein calorie malnutrition Code(s): E46 - Unspecified protein-calorie malnutrition Status: Acute (11) Pneumonia Code(s): J18.9 - Pneumonia, unspecified organism Status: Acute - Plan 1. Will leave on O2 2 L.PRN 2. Duoneb nebs tid 3. Cont Symbicort 160/4.5 mcg , 1 puff bid 4. Get CBC,BMP in am 5. Doxycycline 100 mg BID IV for pneumonia 6. PT evaluation for activity 7. Diet soft with aspiration precautions (3) Closed fracture of left hip Qualifiers: Encounter type: initial encounter Qualified Code(s): S72.002A - Fracture of unspecified part of neck of left femur, initial encounter for closed fracture
[2018-07-21 05:49] LABS: Baso # (Auto) 0.1 th/mm3 (0.0-0.2); Baso % (Auto) 0.8 % (0.0-2.0); Eos % (Auto) 0.1 % (0.0-4.0); Hematocrit 26.2 % (35.0-46.0); Hemoglobin 8.8 gm/dL (11.6-15.3); Lymph # (Auto) 1.7 th/mm3 (1.0-4.8); Lymph % (Auto) 12.6 % (9.0-44.0); Mean Corpuscular HGB Conc 33.6 % (32.0-36.0); Mean Corpuscular Hemoglobin 29.3 pg (27.0-34.0); Mean Platelet Volume 8.2 fL (7.0-11.0); Mono # (Auto) 2.1 th/mm3 (0.0-0.9); Mono % (Auto) 15.4 % (0.0-8.0); Neut # (Auto) 9.8 th/mm3 (1.8-7.7); Neut % (Auto) 71.1 % (16.0-70.0); Platelet Count 551 th/mm3 (150-450); Red Blood Count 3.01 mil/mm3 (4.00-5.30); Red Cell Distribution Width 15.1 % (11.6-17.2); White Blood Count 13.8 th/mm3 (4.0-11.0)
[2018-07-21 06:06] LABS: Calcium 7.9 mg/dL (8.5-10.1); Carbon Dioxide 26.1 meq/L (21.0-32.0); Potassium 3.1 meq/L (3.5-5.1)
[2018-07-21] MEDS: Dextrose 5% in Water Inj 1,000 ML IV.CONT SCH ×2 (06:23→18:40)
[2018-07-21] MEDS: Potassium Chlor 20 mEq Premix 20 MEQ/100 ML PIGGYBACK IV.SIG SCH ×2 (07:30→09:30)
[2018-07-21] MEDS: Megestrol Acetate Liq 400 MG/10 ML UDC PO SCH (09:19)
[2018-07-21] MEDS: Nystatin Liq 500,000 UNIT/5 ML UDC SWISH-SWAL SCH ×4 (09:19→20:30)
[2018-07-21] MEDS: Budesonide-Formoterol 80/4.5 MCG 6.9 GM Inhaler INH SCH ×2 (09:20→20:53)
[2018-07-21] MEDS: Enoxaparin Inj 40 MG/0.4 ML Syringe SQ SCH (09:20)
[2018-07-21] MEDS: Senna/Docusate Sodium 8.6/50 MG Tablet PO SCH ×2 (09:20→20:30)
--- NOTE | 2018-07-21 10:16 | P.PNIM ---
Subjective Interval history: Follow up pneumonia, protein calorie malnutrition, leukocytosis, dementia Patient is resting in bed. Her eyes are open. She is confused secondary to her dementia. Following some commands. not presently at bedside. No acute distress noted. Patient has been running a low grade temperature. Speech re- evaluation has been ordered to evaluate for possible aspiration. Patient will be kept NPO until this has been completed. Will discuss probable NGT/DHT placement with patients . Physical Exam Vital signs: Last Vital Signs Temp 100.6 F H 07/21/18 04:00 Pulse 85 07/21/18 04:38 Resp 16 07/21/18 06:24 BP 117/57 L 07/21/18 04:00 Pulse Ox 94 L 07/21/18 04:00 Intake & Output 07/19/18 07/20/18 07/21/18 07/22/18 06:59 06:59 06:59 06:59 Intake Total 2440 / 2440 2000 / 2000 Output Total 1800 / 1800 650 / 650 Balance 640 / 640 1350 / 1350 Weight 56.7 kg 54.4 kg 52.8 kg Narrative: GENERAL: Thin elderly and frail appearing female, lethargic, no aute distress SKIN: Warm and dry, no rash HEAD: Normocephalic, atraumatic EYES: No scleral icterus. No injection or drainage. NECK: Supple, trachea midline. No JVD or lymphadenopathy. CARDIOVASCULAR: Regular rate and rhythm without murmurs, gallops, or rubs. RESPIRATORY: Breath sounds decreased bilaterally. Occ Basal crackles.No accessory muscle use. GASTROINTESTINAL: Abdomen soft, non-tender, nondistended. MUSCULOSKELETAL: No cyanosis Neuro: Confused Urinary Catheter Management Indwelling Urethral Catheter: Cath placed during this visit: yes, but has since been removed by the nurse Insertion date: 07/08/18 Insertion time: 15:58 Removal date: 07/11/18 Removal time: 06:30 Female External: Cath placed during this visit: no Results Labs CBC & Chem 7: 07/21/18 04:23 07/21/18 04:23 Procedures Procedures: 07/09/18- Intramedullary nail left subtrochanteric femur fracture by Dr. Herrera Assessment and Plan Plan Protein Calorie Malnutrition with Poor Oral Intake: suspect multifactorial with dementia, recent hip fracture, infection - reviewed 07/21/18, unchanged -speech therapy following -dietitian consulted for calorie count, completed 07/17/18 and shows avg daily intake ~ 400 kcals and 15 gms protein. This meets 27% of the low end of her nutritional needs. -discussed PEG tube placement with , however, he states he does not wish for patient to undergo anything invasive at present time. He would like to see if her oral intake will improve and would like to attempt NGT first if needed. Discuss NGT/DHT placement with patients . -continue Megace -continue Ensure with meals Pneumonia aspiration?, suspected - reviewed 07/21/18 -CXR 07/19/18 shows right upper lobe and left base consolidation and small left pleural effusion -febrile with Tmax 100.6F -currently on Doxy IV -supplemental O2 PRN, duoneb scheduled -pulmonary consulted and following, we appreciate their input -NPO pending re-eval by speech therapy to evaluate for aspiration -check BCX and lactic acid Hypokalemia: K 3.1 - reviewed 07/21/18, stable -replace with 40 meq KCL IV -repeat K level this afternoon Left femur fracture s/p mechanical fall at home - reviewed 07/21/18, stable -x-rays reviewed, consistent with comminuted left intertrochanteric hip fracture. Tib-fib x-ray is normal and pelvis intact. -orthopedics consulted and following -S/P Intramedullary nail left subtrochanteric femur fracture, Dr. Herrera 07/16 -Follow up with Dr. Herrera in 2 weeks -Tylenol for pain. Avoid narcotics -PT recommends Rehab placement Afib with RVR: patient with hx of ablation and pacemaker, not on any rate controlling medications at home - reviewed 07/21/18, stable -per pacer needs to be checked in Nov -[facility] performed pacer check on 07/11, unremarkable, paced rhythm at 80bpm -monitor on telemetry -s/p Halicat on 07/12, given IV Cardizem 10mg x2, transferred to [facility], now back in normal sinus paced rhythm -Cardiology consulted, discussed with Dr. Aleman, no further intervention. Not a candidate for a/c due to multiple falls. -continue to monitor, has remained in sinus paced rhythm Hypoxia: acute, patient with episodes of hypoxia as low as 87%. Suspect secondary to pneumonia and lung mass - reviewed 07/21/18, resolved -D-dimer elevated at 4.76, chest CTA showed mass and pneumonia, no PE, see below -pulmonology consulted, started on duonebs q6h, Symbicort bid -O2 as needed Sepsis: acute, suspect secondary to UTI and HCAP - reviewed 07/21/18, resolved -UA remarkable for UTI, however, urine culture with mixed uzma -Blood cultures with NGTD -Repeat CXR 07/12 shows worsening consolidation -Chest CTA 07/13 showed perihilar mass and consolidation of LLL consistent with pneumonia -Changed antibiotics to IV Zosyn and IV Vanco with pharmacy consult, these were d/c'd 07/17/18 -pulmonology following, recommended continuing antibiotics for 5 days ( complete) Perihilar Mass: concern for bronchogenic carcinoma - reviewed 07/21/18, unchanged -Chest CTA 07/13 showed Right perihilar mass measuring 3.8 x 4.6 x 3.1 cm is suspicious for bronchogenic carcinoma until proven otherwise -Consulted pulmonology and palliative care - has opted not to proceed with biopsy at this time Lewy body dementia with failure to thrive, malnutrition - reviewed 07/21/18 -Continue with vitamin B12 1000mcg bid, Namenda 2.5 twice daily -Consulted palliative care for goals of treatment, per goals remain aggressive at this time Hypernatremia - reviewed 07/21/18, resolved Acute Normocytic Anemia - reviewed 07/17/18, stable -given 1u pRBC transfusion -stool hemoccult negative -iron studies consistent with chronic anemia Vitamin D Deficiency: -give ergocalciferol 50,000u q7d MDM: spouse Code: DNR GI ppx: PO intake DVT Prophylaxis: Lovenox sq Progress Note: Quality VTE Deep Vein Thrombosis/Pulmonary Embolism Present on Admission: No
--- NOTE | 2018-07-21 16:49 | P.PN ---
Subjective Interval history: She is better. Off o2 . No fever. taking Po well . Physical Exam Vital signs: Vital Signs 07/20/18 20:00 07/20/18 20:05 07/20/18 20:50 Temperature 100.0 F H Pulse Rate 85 92 H 65 Respiratory Rate 17 18 Blood Pressure 138/67 Pulse Oximetry 94 L 94 L 07/20/18 22:14 07/21/18 00:00 07/21/18 01:23 Temperature 97.8 F Pulse Rate 85 Respiratory Rate 19 16 Blood Pressure 154/96 H Pulse Oximetry 94 L 93 L 07/21/18 03:25 07/21/18 04:00 07/21/18 04:38 Temperature 100.6 F H Pulse Rate 85 84 85 Respiratory Rate 16 17 Blood Pressure 117/57 L Pulse Oximetry 94 L 07/21/18 06:24 07/21/18 10:41 07/21/18 16:32 Temperature Pulse Rate 87 80 Respiratory Rate 16 20 20 Blood Pressure Pulse Oximetry Intake & Output 07/20/18 07/21/18 07/21/18 18:59 06:59 18:59 Intake Total 100 / 100 Balance 100 / 100 Weight 52.8 kg Intake: IV 100 / 100 Doxy 100 Inj 100 MG In NS Inj 100 / 100 100 ML @ 100 mls/hr IV.SIG Q12H [facility] Rx#:[id number] Other: # Incontinent Voids 4 Date of Last Bowel Movement 07/19/18 # Bowel Movements 1 # Incontinent Bowel Movements 1 Narrative: GENERAL: Thin elderly and frail appearing female,in , no aute distress SKIN: Warm and dry, no rash HEAD: Normocephalic, atraumatic EYES: No scleral icterus. No injection or drainage. NECK: Supple, trachea midline. No JVD or lymphadenopathy. CARDIOVASCULAR: Regular rate and rhythm without murmurs, gallops, or rubs. RESPIRATORY: Breath sounds decreased bilaterally. Occ wheeze .No accessory muscle use. GASTROINTESTINAL: Abdomen soft, non-tender, nondistended. MUSCULOSKELETAL: No cyanosis Neuro: Confused - Urinary Catheter Management Indwelling Urethral Catheter Cath placed during this visit: yes, but has since been removed by the nurse Reason for continuing: Decision to DC catheter Insertion date: 07/08/18 Insertion time: 15:58 Removal date: 07/11/18 Removal time: 06:30 Female External Cath placed during this visit: no Results - Labs CBC & Chem 7: 07/21/18 04:23 07/21/18 04:23 Laboratory Results - last 24 hr 07/21/18 07/21/18 07/21/18 04:23 04:23 11:12 WBC 13.8 H RBC 3.01 L Hgb 8.8 L Hct 26.2 L MCV 87.0 MCH 29.3 MCHC 33.6 RDW 15.1 Plt Count 551 H MPV 8.2 Neut % (Auto) 71.1 H Lymph % (Auto) 12.6 Gray % (Auto) 15.4 H Eos % (Auto) 0.1 Baso % (Auto) 0.8 Neut # (Auto) 9.8 H Lymph # (Auto) 1.7 Gray # (Auto) 2.1 H Eos # (Auto) 0.0 Baso # (Auto) 0.1 WBC Differential . Differential Comment Auto diff final Sodium 138 Potassium 3.1 L Chloride 101 Carbon Dioxide 26.1 Anion Gap 11 BUN 13 Creatinine 0.68 Estimated GFR 84 L Random Glucose 98 Lactic Acid 1.5 Calcium 7.9 L - Procedures 07/09/18- Intramedullary nail left subtrochanteric femur fracture by Dr. Herrera Assessment and Plan - Assessment (1) COPD (chronic obstructive pulmonary disease) Code(s): J44.9 - Chronic obstructive pulmonary disease, unspecified Status: Acute (2) Mass of left lung Code(s): R91.8 - Other nonspecific abnormal finding of lung field Status: Acute (3) Closed fracture of left hip Code(s): S72.002A - Fracture of unspecified part of neck of left femur, initial encounter for closed fracture Status: Acute (4) Pain Code(s): R52 - Pain, unspecified Status: Acute (5) History of hysterectomy Code(s): Z90.710 - Acquired absence of both cervix and uterus Status: Acute (6) Urinary tract infection Code(s): N39.0 - Urinary tract infection, site not specified Status: Acute (7) Lewy body dementia Code(s): G31.83 - Dementia with Lewy bodies; F02.80 - Dementia in other diseases classified elsewhere without behavioral disturbance Status: Acute (8) Atrial fibrillation with RVR Code(s): I48.91 - Unspecified atrial fibrillation Status: Acute (9) Sepsis Code(s): A41.9 - Sepsis, unspecified organism Status: Acute (10) Protein calorie malnutrition Code(s): E46 - Unspecified protein-calorie malnutrition Status: Acute (11) Pneumonia Code(s): J18.9 - Pneumonia, unspecified organism Status: Acute - Plan 1. D/ O2 2. Duoneb nebs BID 3. Cont Symbicort 160/4.5 mcg , 1 puff bid 4. Cont anticoagulants 5. Doxycycline 100 mg BID PO X 7 days 6. PT evaluation for activity 7. Diet soft with aspiration precautions 8. OK to rehab. (3) Closed fracture of left hip Qualifiers: Encounter type: initial encounter Qualified Code(s): S72.002A - Fracture of unspecified part of neck of left femur, initial encounter for closed fracture
[2018-07-21] MEDS ORDERED: Ampicillin/Sulbactam Inj 1,500 MG in Sodium Chloride 0.9% Inj 100 ML IV.SIG SCH (17:00)
[2018-07-22 05:08] LABS: Baso # (Auto) 0.1 th/mm3 (0.0-0.2); Baso % (Auto) 1.1 % (0.0-2.0); Eos # (Auto) 0.1 th/mm3 (0.0-0.4); Eos % (Auto) 0.8 % (0.0-4.0); Hematocrit 26.1 % (35.0-46.0); Hemoglobin 8.9 gm/dL (11.6-15.3); Lymph # (Auto) 1.4 th/mm3 (1.0-4.8); Lymph % (Auto) 14.2 % (9.0-44.0); Mean Corpuscular HGB Conc 34.2 % (32.0-36.0); Mean Corpuscular Hemoglobin 29.3 pg (27.0-34.0); Mean Corpuscular Volume 85.6 fL (80.0-100.0); Mean Platelet Volume 8.2 fL (7.0-11.0); Mono # (Auto) 1.4 th/mm3 (0.0-0.9); Mono % (Auto) 14.2 % (0.0-8.0); Neut % (Auto) 69.7 % (16.0-70.0); Platelet Count 536 th/mm3 (150-450); Red Blood Count 3.05 mil/mm3 (4.00-5.30); Red Cell Distribution Width 15.6 % (11.6-17.2); White Blood Count 10.1 th/mm3 (4.0-11.0)
[2018-07-22] MEDS: Dextrose 5% in Water Inj 1,000 ML IV.CONT SCH ×3 (05:36→21:10)
--- NOTE | 2018-07-22 06:24 | XR ---
EXAM DATE: 07/22/2018 5:26 AM EST AGE/SEX: 77 years / Female INDICATIONS: Shortness of breath. CLINICAL DATA: This is the patient's subsequent encounter. Patient reports that signs and symptoms h ave been present for 2 weeks and indicates a pain score of Nonresponsive. MEDICAL/SURGICAL HISTORY: . Cardiovascular disease. Chronic obstructive pulmonary disease. Pac emaker. COMPARISON: C, CHEST 1V SINGLE AP, 07/19/2018. . FINDINGS: Pacer leads overlie right atrium and right ventricle. Heart size enlarged. Right lung mass stable. Le ft basilar consolidation stable from July 19. No pneumothorax. CONCLUSION: Stable right lung mass and left basilar consolidation since July 19. No new infiltrate seen. Pace r leads unchanged. Electronically signed by: Contreras Lee MD 07/22/2018 6:23 AM EST
[2018-07-22] MEDS: Senna/Docusate Sodium 8.6/50 MG Tablet PO SCH ×2 (09:04→21:08)
[2018-07-22] MEDS: Enoxaparin Inj 40 MG/0.4 ML Syringe SQ SCH (09:05)
[2018-07-22] MEDS: Nystatin Liq 500,000 UNIT/5 ML UDC SWISH-SWAL SCH ×5 (09:05→22:27)
[2018-07-22] MEDS: Megestrol Acetate Liq 400 MG/10 ML UDC PO SCH (09:05)
[2018-07-22] MEDS: Budesonide-Formoterol 80/4.5 MCG 6.9 GM Inhaler INH SCH ×2 (12:26→22:23)
--- NOTE | 2018-07-22 15:23 | P.PNIM ---
Subjective Interval history: Follow up pneumonia, protein calorie malnutrition, leukocytosis, dementia Patient is resting in bed. She has her eyes closed but opens them to verbal stimuli. Mumbles words but also has clear speech at times. states he fed her breakfast and she ate almost half. No distress noted. SNF placement pending. Discussed with CM. Physical Exam Vital signs: Last Vital Signs Temp 97.2 F L 07/22/18 12:00 Pulse 84 07/22/18 12:00 Resp 18 07/22/18 12:00 BP 115/54 L 07/22/18 12:00 Pulse Ox 92 L 07/22/18 12:00 Intake & Output 07/20/18 07/21/18 07/22/18 07/23/18 06:59 06:59 06:59 06:59 Intake Total 2000 / 2000 1550 / 1550 1200 / 1200 Output Total 650 / 650 Balance 1350 / 1350 1550 / 1550 1200 / 1200 Weight 54.4 kg 52.8 kg 52.6 kg Narrative: GENERAL: Thin elderly and frail appearing female,in , no aute distress SKIN: Warm and dry, no rash HEAD: Normocephalic, atraumatic EYES: No scleral icterus. No injection or drainage. NECK: Supple, trachea midline. No JVD or lymphadenopathy. CARDIOVASCULAR: Regular rate and rhythm without murmurs, gallops, or rubs. RESPIRATORY: Breath sounds decreased bilaterally. Occ wheeze .No accessory muscle use. GASTROINTESTINAL: Abdomen soft, non-tender, nondistended. MUSCULOSKELETAL: No cyanosis Neuro: Confused Urinary Catheter Management Indwelling Urethral Catheter: Cath placed during this visit: yes, but has since been removed by the nurse Insertion date: 07/08/18 Insertion time: 15:58 Removal date: 07/11/18 Removal time: 06:30 Female External: Cath placed during this visit: no Results Labs CBC & Chem 7: 07/22/18 04:39 07/21/18 16:16 Labs: Microbiology 07/21/18 11:06 Blood - Peripheral Aerobic Blood Culture - Preliminary No growth in 1 day 07/21/18 11:06 Blood - Peripheral Anaerobic Blood Culture - Preliminary No growth in 1 day 07/21/18 11:12 Blood - Peripheral Aerobic Blood Culture - Preliminary No growth in 1 day 07/21/18 11:12 Blood - Peripheral Anaerobic Blood Culture - Preliminary No growth in 1 day Imaging Imaging: Impressions Chest X-Ray 07/22/18 00:00 CONCLUSION: Stable right lung mass and left basilar consolidation since July 19. No new infiltrate seen. Pacer leads unchanged. Procedures Procedures: 07/09/18- Intramedullary nail left subtrochanteric femur fracture by Dr. Herrera Assessment and Plan Plan Protein Calorie Malnutrition with Poor Oral Intake: suspect multifactorial with dementia, recent hip fracture, infection - reviewed 07/22/18, unchanged -speech therapy following -dietitian consulted for calorie count, completed 07/17/18 and shows avg daily intake ~ 400 kcals and 15 gms protein. This meets 27% of the low end of her nutritional needs. -discussed PEG tube placement with , however, he states he does not wish for patient to undergo anything invasive at present time. He would like to see if her oral intake will improve and would like to attempt NGT first if needed. Discuss NGT/DHT placement with patients . -continue Megace -continue Ensure with meals Pneumonia aspiration?, suspected - reviewed 07/22/18 -CXR 07/19/18 shows right upper lobe and left base consolidation and small left pleural effusion -afebrile overnight -currently on Doxy PO to complete 6 more days as discussed with pulmonary -supplemental O2 PRN, duoneb scheduled -pulmonary consulted and following, we appreciate their inpu -BCX w/ NGTD, lactic acid 1.5 07/21/18 Hypokalemia: K 3.7 - reviewed 07/22/18, resolved -continue to monitor Left femur fracture s/p mechanical fall at home - reviewed 07/22/18, stable -x-rays reviewed, consistent with comminuted left intertrochanteric hip fracture. Tib-fib x-ray is normal and pelvis intact. -orthopedics consulted and following -S/P Intramedullary nail left subtrochanteric femur fracture, Dr. Herrera 07/16 -Follow up with Dr. Herrera in 2 weeks -Tylenol for pain. Avoid narcotics -PT recommends Rehab placement Afib with RVR: patient with hx of ablation and pacemaker, not on any rate controlling medications at home - reviewed 07/22/18, stable -per pacer needs to be checked in Nov -[facility] performed pacer check on 07/11, unremarkable, paced rhythm at 80bpm -monitor on telemetry -s/p Halicat on 07/12, given IV Cardizem 10mg x2, transferred to [facility], now back in normal sinus paced rhythm -Cardiology consulted, discussed with Dr. Aleman, no further intervention. Not a candidate for a/c due to multiple falls. -continue to monitor, has remained in sinus paced rhythm Hypoxia: acute, patient with episodes of hypoxia as low as 87%. Suspect secondary to pneumonia and lung mass - reviewed 07/22/18, resolved -D-dimer elevated at 4.76, chest CTA showed mass and pneumonia, no PE, see below -pulmonology consulted, started on duonebs q6h, Symbicort bid -O2 as needed Sepsis: acute, suspect secondary to UTI and HCAP - reviewed 07/21/18, resolved -UA remarkable for UTI, however, urine culture with mixed uzma -Blood cultures with NGTD -Repeat CXR 07/12 shows worsening consolidation -Chest CTA 07/13 showed perihilar mass and consolidation of LLL consistent with pneumonia -Changed antibiotics to IV Zosyn and IV Vanco with pharmacy consult, these were d/c'd 07/17/18 -pulmonology following, recommended continuing antibiotics for 5 days ( complete) Perihilar Mass: concern for bronchogenic carcinoma - reviewed 07/21/18, unchanged -Chest CTA 07/13 showed Right perihilar mass measuring 3.8 x 4.6 x 3.1 cm is suspicious for bronchogenic carcinoma until proven otherwise -Consulted pulmonology and palliative care - has opted not to proceed with biopsy at this time Lewy body dementia with failure to thrive, malnutrition - reviewed 07/21/18 -Continue with vitamin B12 1000mcg bid, Namenda 2.5 twice daily -Consulted palliative care for goals of treatment, per goals remain aggressive at this time Hypernatremia - reviewed 07/21/18, resolved Acute Normocytic Anemia - reviewed 07/17/18, stable -given 1u pRBC transfusion -stool hemoccult negative -iron studies consistent with chronic anemia Vitamin D Deficiency: -give ergocalciferol 50,000u q7d MDM: spouse Code: DNR GI ppx: PO intake DVT Prophylaxis: Lovenox sq Dispo: SNF placement pending. CM consulted and following. Progress Note: Quality VTE Deep Vein Thrombosis/Pulmonary Embolism Present on Admission: No
[2018-07-23] MEDS: Dextrose 5% in Water Inj 1,000 ML IV.CONT SCH ×4 (06:18→23:22)
[2018-07-23 06:34] LABS: Glomerular Filtration Rate Greater Than 89 mL/min (>89)
[2018-07-23] MEDS: Enoxaparin Inj 40 MG/0.4 ML Syringe SQ SCH (10:22)
[2018-07-23] MEDS: Nystatin Liq 500,000 UNIT/5 ML UDC SWISH-SWAL SCH ×5 (10:22→21:54)
[2018-07-23] MEDS: Megestrol Acetate Liq 400 MG/10 ML UDC PO SCH (10:23)
[2018-07-23] MEDS: Senna/Docusate Sodium 8.6/50 MG Tablet PO SCH ×2 (11:15→21:44)
[2018-07-23] MEDS: Budesonide-Formoterol 80/4.5 MCG 6.9 GM Inhaler INH SCH ×2 (11:16→21:44)
--- NOTE | 2018-07-23 14:42 | P.PNIM ---
Subjective Interval history: Follow up pneumonia, protein calorie malnutrition, leukocytosis, dementia Patient seen and examined while resting in bed. at bedside. He assists patient with all feedings and reports that her appetite is improving. No distress noted. Patient opens eyes to verbal stimuli and mumbles some words. Physical Exam Vital signs: Last Vital Signs Temp 97.4 F L 07/23/18 12:00 Pulse 84 07/23/18 12:00 Resp 18 07/23/18 12:00 BP 121/58 L 07/23/18 12:00 Pulse Ox 96 07/23/18 12:00 Intake & Output 07/21/18 07/22/18 07/23/18 07/24/18 06:59 06:59 06:59 06:59 Intake Total 1550 / 1550 3820 / 3820 1000 / 1000 Balance 1550 / 1550 3820 / 3820 1000 / 1000 Weight 52.8 kg 52.6 kg Narrative: GENERAL: Thin elderly and frail appearing female,in , no aute distress SKIN: Warm and dry, no rash HEAD: Normocephalic, atraumatic EYES: No scleral icterus. No injection or drainage. NECK: Supple, trachea midline. No JVD or lymphadenopathy. CARDIOVASCULAR: Regular rate and rhythm without murmurs, gallops, or rubs. RESPIRATORY: Breath sounds decreased bilaterally. Occ wheeze .No accessory muscle use. GASTROINTESTINAL: Abdomen soft, non-tender, nondistended. MUSCULOSKELETAL: No cyanosis Neuro: Confused Urinary Catheter Management Indwelling Urethral Catheter: Cath placed during this visit: yes, but has since been removed by the nurse Insertion date: 07/08/18 Insertion time: 15:58 Removal date: 07/11/18 Removal time: 06:30 Female External: Cath placed during this visit: no Results Labs CBC & Chem 7: 07/22/18 04:39 07/23/18 05:43 Labs: Microbiology 07/21/18 11:06 Blood - Peripheral Aerobic Blood Culture - Preliminary No growth in 2 days 07/21/18 11:06 Blood - Peripheral Anaerobic Blood Culture - Preliminary No growth in 2 days 07/21/18 11:12 Blood - Peripheral Aerobic Blood Culture - Preliminary No growth in 2 days 07/21/18 11:12 Blood - Peripheral Anaerobic Blood Culture - Preliminary No growth in 2 days Procedures Procedures: 07/09/18- Intramedullary nail left subtrochanteric femur fracture by Dr. Herrera Assessment and Plan Plan Protein Calorie Malnutrition with Poor Oral Intake: suspect multifactorial with dementia, recent hip fracture, infection - reviewed 07/23/18, improving -speech therapy following -dietitian consulted for calorie count, completed 07/17/18 and shows avg daily intake ~ 400 kcals and 15 gms protein. This meets 27% of the low end of her nutritional needs. -discussed PEG tube placement with , however, he states he does not wish for patient to undergo anything invasive at present time. He would like to see if her oral intake will improve and would like to attempt NGT first if needed. Discuss NGT/DHT placement with patients and he would like to hold off for time being. -continue Megace -continue Ensure with meals Pneumonia aspiration?, suspected - reviewed 07/23/18 -CXR 07/19/18 shows right upper lobe and left base consolidation and small left pleural effusion -afebrile overnight -currently on Doxy PO to complete 5 more days as discussed with pulmonary -supplemental O2 PRN, duoneb scheduled -pulmonary consulted and following, we appreciate their inpu -BCX w/ NGTD, lactic acid 1.5 07/21/18 Hypokalemia: K 3.7 - reviewed 07/22/18, resolved -continue to monitor Left femur fracture s/p mechanical fall at home - reviewed 07/23/18, stable -x-rays reviewed, consistent with comminuted left intertrochanteric hip fracture. Tib-fib x-ray is normal and pelvis intact. -orthopedics consulted and following -S/P Intramedullary nail left subtrochanteric femur fracture, Dr. Herrera 07/16 -Follow up with Dr. Herrera in 2 weeks -Tylenol for pain. Avoid narcotics -PT recommends Rehab placement Afib with RVR: patient with hx of ablation and pacemaker, not on any rate controlling medications at home - reviewed 07/23/18, stable -per pacer needs to be checked in Nov -[facility] performed pacer check on 07/11, unremarkable, paced rhythm at 80bpm -monitor on telemetry -s/p Halicat on 07/12, given IV Cardizem 10mg x2, transferred to [facility], now back in normal sinus paced rhythm -Cardiology consulted, discussed with Dr. Aleman, no further intervention. Not a candidate for a/c due to multiple falls. -continue to monitor, has remained in sinus paced rhythm Hypoxia: acute, patient with episodes of hypoxia as low as 87%. Suspect secondary to pneumonia and lung mass - reviewed 07/23/18, resolved -D-dimer elevated at 4.76, chest CTA showed mass and pneumonia, no PE, see below -pulmonology consulted, started on duonebs q6h, Symbicort bid -O2 as needed Sepsis: acute, suspect secondary to UTI and HCAP - reviewed 07/21/18, resolved -UA remarkable for UTI, however, urine culture with mixed uzma -Blood cultures with NGTD -Repeat CXR 07/12 shows worsening consolidation -Chest CTA 07/13 showed perihilar mass and consolidation of LLL consistent with pneumonia -Changed antibiotics to IV Zosyn and IV Vanco with pharmacy consult, these were d/c'd 07/17/18 -pulmonology following, recommended continuing antibiotics for 5 days ( complete) Perihilar Mass: concern for bronchogenic carcinoma - reviewed 07/21/18, unchanged -Chest CTA 07/13 showed Right perihilar mass measuring 3.8 x 4.6 x 3.1 cm is suspicious for bronchogenic carcinoma until proven otherwise -Consulted pulmonology and palliative care - has opted not to proceed with biopsy at this time Lewy body dementia with failure to thrive, malnutrition - reviewed 07/23/18 -Continue with vitamin B12 1000mcg bid, Namenda 2.5 twice daily -Consulted palliative care for goals of treatment, per goals remain aggressive at this time Hypernatremia - reviewed 07/21/18, resolved Acute Normocytic Anemia - reviewed 07/22/18, stable -given 1u pRBC transfusion during stay -stool hemoccult negative -iron studies consistent with chronic anemia Vitamin D Deficiency: -give ergocalciferol 50,000u q7d MDM: spouse Code: DNR GI ppx: PO intake DVT Prophylaxis: Lovenox sq Dispo: SNF placement pending. CM consulted and following. Progress Note: Quality VTE Deep Vein Thrombosis/Pulmonary Embolism Present on Admission: No
[2018-07-24 05:07] LABS: Baso # (Auto) 0.2 th/mm3 (0.0-0.2); Baso % (Auto) 3.5 % (0.0-2.0); Eos # (Auto) 0.1 th/mm3 (0.0-0.4); Eos % (Auto) 1.8 % (0.0-4.0); Hematocrit 26.4 % (35.0-46.0); Hemoglobin 8.9 gm/dL (11.6-15.3); Lymph # (Auto) 1.3 th/mm3 (1.0-4.8); Lymph % (Auto) 23.1 % (9.0-44.0); Mean Corpuscular HGB Conc 33.8 % (32.0-36.0); Mean Corpuscular Hemoglobin 29.4 pg (27.0-34.0); Mean Corpuscular Volume 87.1 fL (80.0-100.0); Mean Platelet Volume 8.2 fL (7.0-11.0); Mono # (Auto) 0.8 th/mm3 (0.0-0.9); Mono % (Auto) 14.6 % (0.0-8.0); Neut # (Auto) 3.1 th/mm3 (1.8-7.7); Platelet Count 526 th/mm3 (150-450); Red Blood Count 3.04 mil/mm3 (4.00-5.30); Red Cell Distribution Width 15.2 % (11.6-17.2); White Blood Count 5.4 th/mm3 (4.0-11.0)
[2018-07-24 05:34] LABS: Anion Gap 8 meq/L (5-15); Blood Urea Nitrogen 8 mg/dL (7-18); Carbon Dioxide 26.4 meq/L (21.0-32.0); Chloride 104 meq/L (98-107); Glomerular Filtration Rate Greater Than 89 mL/min (>89); Glucose,Random 89 mg/dL (74-106); Potassium 3.2 meq/L (3.5-5.1); Sodium 138 meq/L (136-145)
[2018-07-24] MEDS: Megestrol Acetate Liq 400 MG/10 ML UDC PO SCH (09:14)
[2018-07-24] MEDS: Nystatin Liq 500,000 UNIT/5 ML UDC SWISH-SWAL SCH ×4 (09:15→21:01)
[2018-07-24] MEDS: Enoxaparin Inj 40 MG/0.4 ML Syringe SQ SCH (09:16)
[2018-07-24] MEDS: Senna/Docusate Sodium 8.6/50 MG Tablet PO SCH ×2 (09:18→21:00)
[2018-07-24] MEDS: Budesonide-Formoterol 80/4.5 MCG 6.9 GM Inhaler INH SCH ×2 (09:19→21:02)
--- NOTE | 2018-07-24 12:11 | P.PN ---
Subjective Interval history: Follow-up visit for left hip fracture, poor p.o. intake aspiration pneumonia and A. fib. Patient seen and examined with in physical therapy at bedside assisting patient out of bed. Physical therapy providing majority of assistance with transfer to chair. Patient reports pain to me however when asked by her denies pain or discomfort. has noticed patient is eating and drinking more, discussed with case management patient unable to be placed at skilled rehab center. Palliative care discussed hiring primary strength and conditioning coach at home. Physical Exam Vital signs: Vital Signs 07/23/18 15:53 07/23/18 16:00 07/23/18 16:13 Temperature 98.7 F Pulse Rate 84 84 Respiratory Rate 18 17 16 Blood Pressure 108/53 L Pulse Oximetry 97 07/23/18 19:25 07/23/18 21:11 07/23/18 21:50 Temperature 97.8 F Pulse Rate 84 85 87 Respiratory Rate 19 16 Blood Pressure 137/56 L Pulse Oximetry 95 07/23/18 23:30 07/24/18 01:50 07/24/18 03:45 Temperature 98.2 F 97.8 F Pulse Rate 83 83 84 Respiratory Rate 19 18 Blood Pressure 117/55 L 139/63 Pulse Oximetry 96 94 L 07/24/18 04:00 07/24/18 04:22 07/24/18 08:00 Temperature 98.4 F Pulse Rate 83 76 84 Respiratory Rate 15 18 Blood Pressure 155/67 H Pulse Oximetry 98 Intake & Output 07/23/18 07/24/18 07/24/18 18:59 06:59 18:59 Intake Total 2009 1010 / 1010 Balance 2009 1010 / 1010 Weight 52.6 kg Intake: IV 1470 / 1470 530 / 530 D5W Inj 1,000 ML @ 84 mls/hr IV 1470 / 1470 530 / 530 .CONT .[id number] [facility] Rx#:[id number] Oral 540 / 540 480 / 480 Other: # Voids 3 # Incontinent Voids 3 Date of Last Bowel Movement 07/23/18 07/23/18 # Bowel Movements 1 0 Narrative: GENERAL: Thin elderly and frail appearing female,in , no acute distress SKIN: Warm and dry. Left hip and lower leg suture well approximated with dry and intact keeley. No surrounding erythema or drainage. HEAD: Normocephalic, atraumatic EYES: No scleral icterus. No injection or drainage. NECK: Supple, trachea midline. CARDIOVASCULAR: Regular rate and rhythm without murmurs, gallops, or rubs. RESPIRATORY: Breath sounds decreased bilaterally. No accessory muscle use. GASTROINTESTINAL: Abdomen soft, non-tender, nondistended. Positive bowel sounds. MUSCULOSKELETAL: No cyanosis Neuro: Confused - Urinary Catheter Management Indwelling Urethral Catheter Cath placed during this visit: yes, but has since been removed by the nurse Reason for continuing: Decision to DC catheter Insertion date: 07/08/18 Insertion time: 15:58 Removal date: 07/11/18 Removal time: 06:30 Female External Cath placed during this visit: no Results - Labs CBC & Chem 7: 07/24/18 04:14 07/24/18 04:14 Laboratory Results - last 24 hr 07/24/18 07/24/18 04:14 04:14 WBC 5.4 RBC 3.04 L Hgb 8.9 L Hct 26.4 L MCV 87.1 MCH 29.4 MCHC 33.8 RDW 15.2 Plt Count 526 H MPV 8.2 Neut % (Auto) 57.0 Lymph % (Auto) 23.1 [place] % (Auto) 14.6 H Eos % (Auto) 1.8 Baso % (Auto) 3.5 H Neut # (Auto) 3.1 Lymph # (Auto) 1.3 [place] # (Auto) 0.8 Eos # (Auto) 0.1 Baso # (Auto) 0.2 WBC Differential . Differential Comment Auto diff final Sodium 138 Potassium 3.2 L Chloride 104 Carbon Dioxide 26.4 Anion Gap 8 BUN 8 Creatinine 0.63 Estimated GFR Greater than 89 Random Glucose 89 Calcium 8.0 L Microbiology 07/21/18 11:06 Blood - Peripheral Aerobic Blood Culture - Preliminary No growth in 3 days 07/21/18 11:06 Blood - Peripheral Anaerobic Blood Culture - Preliminary No growth in 3 days 07/21/18 11:12 Blood - Peripheral Aerobic Blood Culture - Preliminary No growth in 3 days 07/21/18 11:12 Blood - Peripheral Anaerobic Blood Culture - Preliminary No growth in 3 days - Procedures 07/09/18- Intramedullary nail left subtrochanteric femur fracture by Dr. Herrera Assessment and Plan - Plan Protein Calorie Malnutrition with Poor Oral Intake: suspect multifactorial with dementia, recent hip fracture, infection -speech therapy following -dietitian consulted for calorie count, completed 07/17/18 and shows avg daily intake ~ 400 kcals and 15 gms protein. This meets 27% of the low end of her nutritional needs. -PEG tube and Dobbhoff placement previously discussed with who is reluctant to initiating either one at this moment. -continue Megace -continue Ensure with meals Pneumonia aspiration?, suspected -CXR 07/19/18 shows right upper lobe and left base consolidation and small left pleural effusion -afebrile overnight -currently on Doxy PO to complete 07/28 as recommended by pulmonary -supplemental O2 PRN, duoneb scheduled -pulmonary consulted and following, we appreciate their input -BCX w/ NGTD, lactic acid 1.5 07/21/18 Hypokalemia: K 3.2 -Likely secondary to poor p.o. intake, replace orally, recheck tomorrow Left femur fracture s/p mechanical fall at home -x-rays reviewed, consistent with comminuted left intertrochanteric hip fracture. Tib-fib x-ray is normal and pelvis intact. -orthopedics consulted S/P Intramedullary nail left subtrochanteric femur fracture, Dr. Herrera 07/09/18 -Follow up with Dr. Herrera in 2 weeks, remove keeley and replaced with Steri -Strips. -Tylenol for pain. Avoid narcotics -PT following, case management has attempted placement to rehab however no accepting facilities. Afib with RVR: patient with hx of ablation and pacemaker, not on any rate controlling medications at home - reviewed 07/23/18, stable -per pacer needs to be checked in Nov -[facility] performed pacer check on 07/11, unremarkable, paced rhythm at 80bpm -monitor on telemetry -s/p Halicat on 07/12, given IV Cardizem 10mg x2, transferred to [facility], now back in normal sinus paced rhythm -Cardiology consulted, discussed with Dr. Aleman, no further intervention. Not a candidate for a/c due to multiple falls. -continue to monitor, has remained in sinus paced rhythm Hypoxia: acute, patient with episodes of hypoxia as low as 87%. Suspect secondary to pneumonia and lung mass - reviewed 07/23/18, resolved -D-dimer elevated at 4.76, chest CTA showed mass and pneumonia, no PE, see below -pulmonology consulted, started on duonebs q6h, Symbicort bid -O2 as needed Sepsis: acute, suspect secondary to UTI and HCAP - reviewed 07/21/18, resolved -UA remarkable for UTI, however, urine culture with mixed uzma -Blood cultures with NGTD -Repeat CXR 07/12 shows worsening consolidation -Chest CTA 07/13 showed perihilar mass and consolidation of LLL consistent with pneumonia -Changed antibiotics to IV Zosyn and IV Vanco with pharmacy consult, these were d/c'd 07/17/18 -pulmonology following, recommended continuing antibiotics for 5 days to complete 07/28. Perihilar Mass: concern for bronchogenic carcinoma - reviewed 07/21/18, unchanged -Chest CTA 07/13 showed Right perihilar mass measuring 3.8 x 4.6 x 3.1 cm is suspicious for bronchogenic carcinoma until proven otherwise -Consulted pulmonology and palliative care - has opted not to proceed with biopsy at this time Lewy body dementia with failure to thrive, malnutrition - reviewed 07/23/18 -Continue with vitamin B12 1000mcg bid, Namenda 2.5 twice daily -Consulted palliative care for goals of treatment, per goals remain aggressive at this time Hypernatremia - reviewed 07/21/18, resolved Acute Normocytic Anemia - reviewed 07/22/18, stable -given 1u pRBC transfusion during stay -stool hemoccult negative -iron studies consistent with chronic anemia Vitamin D Deficiency: -give ergocalciferol 50,000u q7d DVT prophylaxisLovenox Discussed Condition With: Patient, , nurse, palliative care. Discharge Planning: Case management has not found excepting rehab facility. Palliative care team discussed possible strength and conditioning coach at home, case management assisting with this. Hopefully one will be set up for tomorrow for discharge.
--- NOTE | 2018-07-24 12:24 | P.PNPAL ---
Reason for Visit Reason for visit: a. To assist with evaluation and management of symptoms including: Pain, decreased oral intake, physical deconditioning b. To assist medical decision maker(s) with: better understanding of current medical conditions; weighing benefits/burdens of medical treatment options; making medical treatment decisions. Subjective Subjective/Interval History: Follow up visit for symptom management and clarification of medical treatment goals. Patient seen and examined in her room. She presents sitting on the side of the bed. Sit to stand pivot with PT assist. Patient is awake and alert. She responds to some questions with brief 1-2 word answers; speech is often nonsensical. Patient complains of pain in her right hip; she is unable to rate or describe pain. Calorie count completed 07/17/2018. Per report, patient is at high nutritional risk secondary to poor nutritional intake and a BMI of 19.3. Patient's spouse was initially amenable to PEG tube placement but later changed his mind. He tells me his 's intake has improved immensely. Clinical data from 07/14/2018: * WBC: 5.4, hemoglobin 8.9, hematocrit 26.4, platelets 526, neutrophils 57.0% * Sodium: 138, potassium 3.2, chloride 104, carbon dioxide 26.4, glucose 89, calcium 8.0 * BUN: 8, creatinine 0.63, GFR >89 * Follow-up chest x-ray on 07/22/2018 showed the right lung mass and left basilar consolidation are stable in comparison to previous imaging on 07/19/18. * Blood cultures from 07/21/2018 with no growth to date * C. difficile negative on 07/14/2018 Case management continue to work on discharge planning/SNF placement. Patient's is not considering residential placement at this time stating, " She won' t ever be in a [facility]. Not while I'm alive." He is willing to take his home with [facility]; he states he may be able to hire a private career resource specialist to assist as well. Goals remain aggressive. Family/Friend Interactions: See interval history Advance Directives Living Will: Never completed Health Care Surrogate: Never completed Durable Power of Roll Clamp Operator: Never completed Health Care Surrogate Name and Number: HCP-Spouse- Eugene Wilhelm [phone] Objective Vital Signs: Vital Signs 07/23/18 12:00 07/23/18 15:53 07/23/18 16:00 Temperature 97.4 F L 98.7 F Pulse Rate 84 84 84 Respiratory Rate 18 18 17 Blood Pressure 121/58 L 108/53 L Pulse Oximetry 96 97 07/23/18 16:13 07/23/18 19:25 07/23/18 21:11 Temperature 97.8 F Pulse Rate 84 85 Respiratory Rate 16 19 16 Blood Pressure 137/56 L Pulse Oximetry 95 07/23/18 21:50 07/23/18 23:30 07/24/18 01:50 Temperature 98.2 F Pulse Rate 87 83 83 Respiratory Rate 19 Blood Pressure 117/55 L Pulse Oximetry 96 07/24/18 03:45 07/24/18 04:00 07/24/18 04:22 Temperature 97.8 F Pulse Rate 84 83 76 Respiratory Rate 18 15 Blood Pressure 139/63 Pulse Oximetry 94 L 07/24/18 08:00 Temperature 98.4 F Pulse Rate 84 Respiratory Rate 18 Blood Pressure 155/67 H Pulse Oximetry 98 Intake & Output 07/23/18 07/24/18 07/24/18 18:59 06:59 18:59 Intake Total 2009 1010 / 1010 Balance 2009 1010 / 1010 Weight 52.6 kg Intake: IV 1470 / 1470 530 / 530 D5W Inj 1,000 ML @ 84 mls/hr IV 1470 / 1470 530 / 530 .CONT .[id number] [facility] Rx#:[id number] Oral 540 / 540 480 / 480 Other: # Voids 3 # Incontinent Voids 3 Date of Last Bowel Movement 07/23/18 07/23/18 # Bowel Movements 1 0 Physical Exam: CONSTITUTIONAL/GENERAL: This is a frail, elderly female patient, in no apparent distress. TUBES/LINES/DRAINS: PIV SKIN: No jaundice, rashes, or lesions. Ecchymoses on upper extremities. No wounds seen anteriorly. Normothermic. HEAD: Atraumatic. Normocephalic. EYES: PERRLA. No scleral icterus. No injection or drainage. Fundi not examined. ENT: Hearing grossly normal. Nose without bleeding or purulent drainage. Oral mucosa moist and pink NECK: Trachea midline. Supple, nontender. CARDIOVASCULAR: Irregular rate and rhythm. No JVD. Pacemaker to Right chest wall. Peripheral pulses symmetric. RESPIRATORY/CHEST: Symmetric, unlabored respirations. Occassionaly wheeze. No accessory muscle use. GASTROINTESTINAL: Abdomen soft, non-tender, nondistended. No guarding. Bowel sounds present. GENITOURINARY: Without palpable bladder distension. MUSCULOSKELETAL: Extremities without clubbing or cyanosis. No mottling or clubbing. LYMPHATICS: No palpable cervical or supraclavicular adenopathy. NEUROLOGICAL: Awake and alert. Oriented to self only. Speech is often garbled/ nonsensical. Occasionally responds to simple questions with brief answers. PSYCHIATRIC: No obvious anxiety/depression. No apparent hallucinations or other psychotic thought process. Diagnostic Tests Laboratory: Laboratory Results - last 72 hr 07/21/18 07/22/18 07/23/18 16:16 04:39 05:43 WBC 10.1 RBC 3.05 L Hgb 8.9 L Hct 26.1 L MCV 85.6 MCH 29.3 MCHC 34.2 RDW 15.6 Plt Count 536 H MPV 8.2 Neut % (Auto) 69.7 Lymph % (Auto) 14.2 [place] % (Auto) 14.2 H Eos % (Auto) 0.8 Baso % (Auto) 1.1 Neut # (Auto) 7.0 Lymph # (Auto) 1.4 [place] # (Auto) 1.4 H Eos # (Auto) 0.1 Baso # (Auto) 0.1 WBC Differential . Differential Comment Auto diff final Sodium Potassium 3.7 Chloride Carbon Dioxide Anion Gap BUN Creatinine 0.62 Estimated GFR Greater than 89 Random Glucose Calcium 07/24/18 07/24/18 04:14 04:14 WBC 5.4 RBC 3.04 L Hgb 8.9 L Hct 26.4 L MCV 87.1 MCH 29.4 MCHC 33.8 RDW 15.2 Plt Count 526 H MPV 8.2 Neut % (Auto) 57.0 Lymph % (Auto) 23.1 [place] % (Auto) 14.6 H Eos % (Auto) 1.8 Baso % (Auto) 3.5 H Neut # (Auto) 3.1 Lymph # (Auto) 1.3 [place] # (Auto) 0.8 Eos # (Auto) 0.1 Baso # (Auto) 0.2 WBC Differential . Differential Comment Auto diff final Sodium 138 Potassium 3.2 L Chloride 104 Carbon Dioxide 26.4 Anion Gap 8 BUN 8 Creatinine 0.63 Estimated GFR Greater than 89 Random Glucose 89 Calcium 8.0 L Result Diagrams: 07/24/18 04:14 07/24/18 04:14 Microbiology: Microbiology 07/21/18 11:06 Aerobic Blood Culture - Preliminary Blood - Peripheral No growth in 3 days Anaerobic Blood Culture - Preliminary No growth in 3 days 07/21/18 11:12 Aerobic Blood Culture - Preliminary Blood - Peripheral No growth in 3 days Anaerobic Blood Culture - Preliminary No growth in 3 days Imaging: Femur X-Ray 07/08/18 12:45 CONCLUSION: Comminuted and mildly displaced and mildly angulated intertrochanteric and proximal shaft fracture of the left femur. Tibia/Fibula X-Ray 07/08/18 12:45 CONCLUSION: Left tibia and fibula appear intact. Pelvis X-Ray 07/08/18 12:46 CONCLUSION: No evidence of pelvic fracture. Hip X-Ray 07/09/18 00:00 CONCLUSION: Fixation left intertrochanteric fracture. Chest CTA 07/13/18 00:00 CONCLUSION: 1. No evidence of pulmonary embolism. 2. Right perihilar mass measuring 3.8 x 4.6 x 3.1 cm is suspicious for bronchogenic carcinoma until proven otherwise. 3. Patchy opacity is noted within the right upper lobe and extends to the pleura. 4. Alveolar consolidation is noted involving the left lower lobe consistent with pneumonia and/or atelectasis. 5. Small left pleural effusion. 6. Multiple compression deformities involving the thoracic spine with underlying diffuse sclerosis involving the severely compressed vertebral bodies. 7. Scoliosis and degenerative changes of the thoracic spine. 8. Cardiomegaly and coronary artery calcification. Chest X-Ray 07/22/18 00:00 CONCLUSION: Stable right lung mass and left basilar consolidation since July 19. No new infiltrate seen. Pacer leads unchanged. Procedures: 07/08/18-intramedullary nailing of left subtrochanteric femur fracture. Assessment and Plan - Disease Oriented Problem List (1) Sepsis Comment: = Suspect secondary to UTI and HCAP patient met sepsis criteria with WBC 13K, tachycardia, fever 100.5 = UA remarkable for UTI however urine culture with mixed uzma = Blood cultures with NGTD = Repeat CXR 07/12/18 shows worsening consolidation = Chest CTA 07/13/18 showed perihilar mass and consolidation of LLL consistent with pneumonia = Changed antibiotics to IV Zosyn and IV Vanco, pharmacy consulted (2) Atrial fibrillation with RVR Comment: = [facility] performed pacer check on 07/11/18; unremarkable. (3) Closed fracture of left hip Comment: = X-rays reviewed, consistent with comminuted left intertrochanteric hip fracture. Tib-fib x-ray is normal and pelvis intact. = S/P Intramedullary nail left subtrochanteric femur fracture, Dr. Herrera = Tylenol for pain. Avoid narcotics = PT recommends SNF placement for rehab (4) Lewy body dementia Comment: = Continue with vitamin B12 1000mcg BID, Namenda 2.5 BID (5) Protein calorie malnutrition Comment: = Calorie count completed 07/17/2018. = Patient is at high nutritional risk secondary to poor nutritional intake and a BMI of 19.3. = Patient's average daily intake is only 400 kcals and 15 g protein which meets approximately 27% of her nutritional needs. = is refusing PEG tube placement - Symptom Scale (1) Pain Comment: = Recent femur fracture and surgical intervention. . (2) Decreased oral intake Comment: = Calorie count completed 07/17/18 = Spouse amenable to PEG tube placement; IR consulted. = May continue oral intake for pleasure (3) Physical deconditioning Comment: = Physical therapy recommending SNF placement for rehab Pertinent Non-Medical Issues: Psychosocial: Patient was born and raised in [place]. She moved to [place] 15 -17 years ago. Patient was twice and has been to her current for the past 58 years. Patient has 2 adult children, daughter Leonarda Bill- (Public Figure-Politician) and a son Angelica Rhoades. 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 Spiritual: Patient is Gnosticist-declined cook's assistant to visit Legal: Never completed advanced directives. Ethical issues impacting care: None identified at this time Important Contacts: Health care proxy- Spouse-Eugene Wilhelm [phone] Daughter- Leonarda Bill Son- Angelica Rhoades Prognosis: Mrs. Wilhelm is a 77-year-old female with a medical history of severe Lewy body dementia, atrial fibrillation, breast cancer, and chronic obstructive pulmonary disease. Patient was brought into the emergency room on 07/08/18 for evaluation and treatment after she sustained a fall at home. Patient underwent intramedullary nailing of left subtrochanteric femur fracture.Clinical course complicated with sepsis, shortness of breath, and decreased oral intake. Given ongoing multiple comorbidities, patient remains at high risk for further complications, deterioration and decline. . Code Status: Full Code Plan: PLAN: * Legal decision maker: Patient is oriented to self only with confusion. She has Lewy body dementia. Patient is not able to participate in medical decision making and will most likely not regain that capacity. According to [place] statute, her spouse Eugene Wilhelm will serve as a healthcare proxy medical decision maker. * Goals: Goals remain aggressive though patient`s spouse does not want a lung biopsy performed. He wants everything possible that can be done for patient including resuscitation, intubation and feeding tube placement if needed. * CODE STATUS: Full code * Discussed patient with case management (Berta) and Anne Marie Martinez APRN SYMPTOMS: * Pain: Patient came in after a fall which she sustained a left femur fracture. Patient is status post intramedullary nailing of left subtrochanteric femur fracture. Currently not showing signs of pain. Patient`s spouse states that patient gets very agitated when given narcotics and does not want her to receive narcotics. He also believes that when patient receives acetaminophen " it causes A. fib with RVR". Continue to monitor pain and educating patient spouse on nonverbal signs of pain. * Decreased oral intake: Patient has had decreased oral intake. Calorie consult completed 07/17/18. Patient's spouse refusing PEG. He states patient's nutritional intake has improved. * Physical deconditioning: Progressive. Patient has severe lower body dementia and has had multiple falls. Recently fell and had a left femur fracture. Physical therapy consulted, recommending SNF placement for rehab. Patient's participation most likely limited due to cognition problems. Palliative care will continue to follow the patient during hospital course as condition evolves, to assist patient/decision-maker with understanding of their medical conditions, weighing benefits/burdens of treatment options, for clarification of goals of treatment. Additionally will assist with any symptoms of palliative concern Attestation Attestation: To help prompt me to consider important information that might be impacting today's encounter and assessment, information from prior notes written by myself or my colleagues may have been "brought forward" into today's note. My signature on this note, however, is an attestation that I personally performed the exam, history, and/or decision-making noted today, and, unless otherwise indicated, the interactions with patient, family, and staff as well as the review of records all occurred today. I also attest that the listed assessment and stated plan reflect my best clinical judgment today based on the combination of historical information, prior notes, and today's exam/ interactions. When time spent is documented, it refers only to time spent today by the signer, or if indicated, combined time spent today by collaborating physician/nurse practitioner.
--- NOTE | 2018-07-24 13:51 | P.DCO ---
- Physical Therapy Order: Evaluate and treat, Improve ambulation, Strength and gait training - Occupational Therapy Order: Evaluate and treat, Improve ADL, Gross motor coordination, Fine motor coordination - Speech Therapy Order: To improve: Speech and communication skills, Cognitive skills - Home Health Nursing Order: Medical education, Signs/symptoms of disease process, Nursing assessment with vital signs - Case Management Consult Case Management Consult-Home Health: Yes - Certification I have seen patient Renée Wilhelm on 07/24/18. My clinical findings support the need for the requested home health care services because: Limited mobility due to disease progression I certify that my clinical findings support that this patient is homebound because: Post-op weakness
--- NOTE | 2018-07-24 16:01 | P.DIET ---
Nutritional Evaluation Type of nutrition evaluation: follow-up Nutrition consult regarding: Tube Feeding Nutrition screening: MDC (Poor PO Intake) Screening comments: [facility] [place] [place] for Calorie Counting: completed 07/17 RN request/consult for TF recs d/t pt having poor PO intake as indicated on calorie count and getting PEG tube placement 07/24: ST notes - pt able to consume mech soft diet Subjective Subjective Comments: Minimal po intake noted. Pt's is bringing in food for her but she is still not eating much more than 10%. Objective - Diagnosis L hip Fx - Objective % IBW: 94 (IBW = 94%) Body Weight Used for Calculations: Actual (53.4 kg) Energy Needs - Lower Range (kCal/kg): 28 Energy Needs - Upper Range (kCal/kg): 32 Lower Limit kCal/kg (kCals): 1,495 Upper Limit kCal/kg (kCals): 1,709 Lower Limit Protein Factor (Grams per Kg): 1.0 Upper Limit Protein Factor (Grams per Kg): 1.5 Lower Protein Needs (Protein): 53 Upper Protein Needs (Protein): 80 Fluid Factor (ml/kg): 32 Estimated Fluid Needs (ml): 1,709 Dietitian Reviewed in Medical Record: Current diet, Curent medications, Intake & Output, Labs, Medical history Diet Order: NPO Objective Comments: PMH: AFIB, breast CA, COPD, lewy body dementia, pacemaker Labs: K+3.2, Ca+ 8.0 Assessment Assessment: Pt did not receive PEG/NGT as planned, ST notes reviewed, pt able to consume mech soft and thin liquid diet. Pt currently eating around 25-50% of most meals. Pt requires feed assistance, pts spouse helps often for feedings. Pt awaiting SNF placement per MD note. RD to recommend Ensure Enlive as PO supplement for better meet pts nutritional needs. Labs reviewed, dietitian following. Recommendations: 1. ST notes reviewed, pt able to consume mech soft and thin liquid diet 2. Pt requires feed assistance 3. RD to recommend Ensure Enlive as PO supplement for better meet pts nutritional needs 4. Dietitian following Dietitian to Monitor: Lab values, Intake & Output, Diet tolerance, Weight change , PO Intake, Medical course
--- NOTE | 2018-07-24 19:26 | P.PN ---
Subjective Interval history: No change clinically. Off O2 sats 94. Able to sit UP. CXR is stable. Poor intake. Physical Exam Vital signs: Vital Signs 07/23/18 19:25 07/23/18 21:11 07/23/18 21:50 Temperature 97.8 F Pulse Rate 84 85 87 Respiratory Rate 19 16 Blood Pressure 137/56 L Pulse Oximetry 95 07/23/18 23:30 07/24/18 01:50 07/24/18 03:45 Temperature 98.2 F 97.8 F Pulse Rate 83 83 84 Respiratory Rate 19 18 Blood Pressure 117/55 L 139/63 Pulse Oximetry 96 94 L 07/24/18 04:00 07/24/18 04:22 07/24/18 08:00 Temperature 98.4 F Pulse Rate 83 76 84 Respiratory Rate 15 18 Blood Pressure 155/67 H Pulse Oximetry 98 07/24/18 08:10 07/24/18 12:00 07/24/18 16:00 Temperature 97.1 F L 98.8 F Pulse Rate 83 86 84 Respiratory Rate 18 18 Blood Pressure 132/80 123/59 L Pulse Oximetry 94 L 97 Intake & Output 07/24/18 07/24/18 07/25/18 06:59 18:59 06:59 Intake Total 1010 / 1010 1760 / 1760 Balance 1010 / 1010 1760 / 1760 Weight 52.6 kg Intake: IV 530 / 530 1000 / 1000 D5W Inj 1,000 ML @ 84 mls/hr IV 530 / 530 1000 / 1000 .CONT .[id number] [facility] Rx#:[id number] Oral 480 / 480 760 / 760 Other: # Voids 5 # Incontinent Voids 3 Date of Last Bowel Movement 07/23/18 07/24/18 # Bowel Movements 0 1 Narrative: GENERAL: Thin elderly and frail appearing female,in , no acute distress SKIN: Warm and dry. Left hip and lower leg suture well approximated with dry and intact keeley. HEAD: Normocephalic, atraumatic EYES: No scleral icterus. No injection or drainage. NECK: Supple, trachea midline. CARDIOVASCULAR: Regular rate and rhythm without murmurs, gallops, or rubs. RESPIRATORY: Breath sounds decreased bilaterally. Occ Wheeze upper chest.No accessory muscle use. GASTROINTESTINAL: Abdomen soft, non-tender, nondistended. Positive bowel sounds. MUSCULOSKELETAL: No cyanosis Neuro: Confused - Urinary Catheter Management Indwelling Urethral Catheter Cath placed during this visit: yes, but has since been removed by the nurse Reason for continuing: Decision to DC catheter Insertion date: 07/08/18 Insertion time: 15:58 Removal date: 07/11/18 Removal time: 06:30 Female External Cath placed during this visit: no Results - Labs CBC & Chem 7: 07/24/18 04:14 07/24/18 04:14 Laboratory Results - last 24 hr 07/24/18 07/24/18 04:14 04:14 WBC 5.4 RBC 3.04 L Hgb 8.9 L Hct 26.4 L MCV 87.1 MCH 29.4 MCHC 33.8 RDW 15.2 Plt Count 526 H MPV 8.2 Neut % (Auto) 57.0 Lymph % (Auto) 23.1 [place] % (Auto) 14.6 H Eos % (Auto) 1.8 Baso % (Auto) 3.5 H Neut # (Auto) 3.1 Lymph # (Auto) 1.3 [place] # (Auto) 0.8 Eos # (Auto) 0.1 Baso # (Auto) 0.2 WBC Differential . Differential Comment Auto diff final Sodium 138 Potassium 3.2 L Chloride 104 Carbon Dioxide 26.4 Anion Gap 8 BUN 8 Creatinine 0.63 Estimated GFR Greater than 89 Random Glucose 89 Calcium 8.0 L Microbiology 07/21/18 11:06 Blood - Peripheral Aerobic Blood Culture - Preliminary No growth in 3 days 07/21/18 11:06 Blood - Peripheral Anaerobic Blood Culture - Preliminary No growth in 3 days 07/21/18 11:12 Blood - Peripheral Aerobic Blood Culture - Preliminary No growth in 3 days 07/21/18 11:12 Blood - Peripheral Anaerobic Blood Culture - Preliminary No growth in 3 days - Procedures 07/09/18- Intramedullary nail left subtrochanteric femur fracture by Dr. Herrera Assessment and Plan - Assessment (1) COPD (chronic obstructive pulmonary disease) Code(s): J44.9 - Chronic obstructive pulmonary disease, unspecified Status: Acute (2) Mass of left lung Code(s): R91.8 - Other nonspecific abnormal finding of lung field Status: Acute (3) Closed fracture of left hip Code(s): S72.002A - Fracture of unspecified part of neck of left femur, initial encounter for closed fracture Status: Acute (4) Pain Code(s): R52 - Pain, unspecified Status: Acute (5) History of hysterectomy Code(s): Z90.710 - Acquired absence of both cervix and uterus Status: Acute (6) Urinary tract infection Code(s): N39.0 - Urinary tract infection, site not specified Status: Acute (7) Lewy body dementia Code(s): G31.83 - Dementia with Lewy bodies; F02.80 - Dementia in other diseases classified elsewhere without behavioral disturbance Status: Acute (8) Atrial fibrillation with RVR Code(s): I48.91 - Unspecified atrial fibrillation Status: Acute (9) Sepsis Code(s): A41.9 - Sepsis, unspecified organism Status: Acute (10) Protein calorie malnutrition Code(s): E46 - Unspecified protein-calorie malnutrition Status: Acute (11) Pneumonia Code(s): J18.9 - Pneumonia, unspecified organism Status: Acute - Plan 1. D/C O2 2. Duoneb nebs BID 3. Cont Symbicort 160/4.5 mcg , 1 puff bid 4. Cont anticoagulants 5. labs in am 6. PT evaluation for activity 7. Diet soft with aspiration precautions 8. OK to rehab. (3) Closed fracture of left hip Qualifiers: Encounter type: initial encounter Qualified Code(s): S72.002A - Fracture of unspecified part of neck of left femur, initial encounter for closed fracture
[2018-07-25] MEDS: Enoxaparin Inj 40 MG/0.4 ML Syringe SQ SCH (09:09)
[2018-07-25] MEDS: Senna/Docusate Sodium 8.6/50 MG Tablet PO SCH ×2 (09:10→21:04)
[2018-07-25] MEDS: Megestrol Acetate Liq 400 MG/10 ML UDC PO SCH (09:10)
[2018-07-25] MEDS: Nystatin Liq 500,000 UNIT/5 ML UDC SWISH-SWAL SCH ×3 (09:10→21:04)
[2018-07-25] MEDS: Budesonide-Formoterol 80/4.5 MCG 6.9 GM Inhaler INH SCH ×2 (09:10→22:08)
--- NOTE | 2018-07-25 11:45 | P.DS ---
Date of admission: 07/08/18 15:01 Primary care physician: UNKNOWN Brief History from admission: This is a 77-year-old female with severe Lewy body dementia. She had a fall at home. She has very poor balance and gait as baseline. She was attempting to transfer and lost her balance and fell onto her left leg. Her says that her left leg was bent up beneath her. She did not strike her head. Symptom severity is mild to moderate. She cannot provide any history or review of symptoms herself. She is nonverbal. Duration is 1 hour. No alleviating factors. Symptoms are exacerbated by her severe dementia and gait imbalance. DS: Summary Hospital Course: 77-year-old female with past medical history significant for Lewy body dementia , A. fib, COPD, and breast cancer who presented to the emergency department on after falling at home. Patient suffered from comminuted left intertrochanteric hip fracture orthopedic services was consulted. Patient underwent intramedullary nail left subtrochanteric femur fracture by Dr. Herrera on 07/09. Following surgey patient developed encephalopathy likely related to urinary tract infection for which she was treated with IV antibiotics. She also developed hypoxia and had CTA done 07/13 which showed perihilar mass and consolidation of left lower lobe consistent with pneumonia. Initially patient was treated with IV Zosyn and vancomycin. Pulmonary services was consulted and patient was transitioned over to oral antibiotics. She also developed A. fib with RVR and was a Yasmine-cat on 07/12 requiring IV Cardizem. Patient was evaluated by cardiology services and was deemed not a candidate for oral anticoagulation due to multiple falls. Patient's had a decline in oral intake and palliative services was consulted. declined NG tube or PEG tube placement for nutrition. Patient had hyponatremia which was corrected as well as hypokalemia. Megace was started for appetite stimulation and her nutrition intake improved. She however did not progress much with physical therapy and has required extensive assistance with transferring. Case management has reached out to a number of rehab facilities who have not yet accepted patient. declines nursing facility placement at this moment. Recommendations for home health which has also declined. Discussion with palliative care as well as primary team with regarding 24-hour caregiver at home option for discharge. Has been has declined needing 24-hour caregivers at home as he states that he takes care of patient himself and has been doing this for the past 3 years. Discussed with case management to please provide a list of caregivers which has been can reach out in case he is in need of any help. Discussed this morning with patient is medically stable for discharge, case management will be assisting with transportation home tomorrow morning. Patient is seen and examined this morning with at bedside, she is sitting up in bed resting and appears to be in no acute distress. reports that this morning she had a good breakfast and is also been drinking fluids without any issues. No reports of vomiting, fevers or events overnight or this morning. - Time Spent with Patient Total time spent providing and/or coordinating discharge services: Less than 30 minutes - Quality: VTE Deep Vein Thrombosis/Pulmonary Embolism Present on Admission: No Exam Vital signs: Vital Signs 07/24/18 12:00 07/24/18 16:00 07/24/18 19:58 Temperature 97.1 F L 98.8 F Pulse Rate 86 84 84 Respiratory Rate 18 18 Blood Pressure 132/80 123/59 L Pulse Oximetry 94 L 97 07/24/18 20:18 07/25/18 00:00 07/25/18 00:01 Temperature 98.5 F 98.0 F Pulse Rate 84 86 84 Respiratory Rate 18 18 Blood Pressure 151/70 H 137/63 Pulse Oximetry 94 L 94 L 07/25/18 04:02 07/25/18 04:30 07/25/18 08:50 Temperature 97.5 F L 97.6 F Pulse Rate 84 84 84 Respiratory Rate 18 18 Blood Pressure 159/73 H 118/60 Pulse Oximetry 95 96 Intake & Output 07/24/18 07/25/18 07/25/18 18:59 06:59 18:59 Intake Total 1760 / 1760 120 / 120 Balance 1760 / 1760 120 / 120 Weight 53.7 kg Intake: IV 1000 / 1000 D5W Inj 1,000 ML @ 84 mls/hr IV 1000 / 1000 .CONT .[id number] [facility] Rx#:[id number] Oral 760 / 760 120 / 120 Other: # Voids 5 # Incontinent Voids 4 Date of Last Bowel Movement 07/24/18 07/24/18 # Bowel Movements 1 0 Narrative: GENERAL: Thin elderly and frail appearing female,in , no acute distress SKIN: Warm and dry. Left hip and lower leg suture well approximated with dry and intact keeley. No surrounding erythema or drainage. HEAD: Normocephalic, atraumatic EYES: No scleral icterus. No injection or drainage. NECK: Supple, trachea midline. CARDIOVASCULAR: Regular rate and rhythm without murmurs, gallops, or rubs. RESPIRATORY: Breath sounds decreased bilaterally. No accessory muscle use. GASTROINTESTINAL: Abdomen soft, non-tender, nondistended. Positive bowel sounds. MUSCULOSKELETAL: No cyanosis Neuro: Resting with eyes closed, moving all extremities, speech is clear. Results Procedures completed during hospitalization: 07/09/18- Intramedullary nail left subtrochanteric femur fracture by Dr. Herrera Labs on day of discharge: Labs from last 24 hours 07/25/18 05:20 Potassium 3.6 Preliminary micro results at discharge 07/21/18 11:06 Aerobic Blood Culture - Preliminary Blood - Peripheral No growth in 4 days Anaerobic Blood Culture - Preliminary No growth in 4 days 07/21/18 11:12 Aerobic Blood Culture - Preliminary Blood - Peripheral No growth in 4 days Anaerobic Blood Culture - Preliminary No growth in 4 days - Impressions ITS Impressions Femur X-Ray 07/08/18 12:45 CONCLUSION: Comminuted and mildly displaced and mildly angulated intertrochanteric and proximal shaft fracture of the left femur. Tibia/Fibula X-Ray 07/08/18 12:45 CONCLUSION: Left tibia and fibula appear intact. Pelvis X-Ray 07/08/18 12:46 CONCLUSION: No evidence of pelvic fracture. Hip X-Ray 07/09/18 00:00 CONCLUSION: Fixation left intertrochanteric fracture. Chest CTA 07/13/18 00:00 CONCLUSION: 1. No evidence of pulmonary embolism. 2. Right perihilar mass measuring 3.8 x 4.6 x 3.1 cm is suspicious for bronchogenic carcinoma until proven otherwise. 3. Patchy opacity is noted within the right upper lobe and extends to the pleura. 4. Alveolar consolidation is noted involving the left lower lobe consistent with pneumonia and/or atelectasis. 5. Small left pleural effusion. 6. Multiple compression deformities involving the thoracic spine with underlying diffuse sclerosis involving the severely compressed vertebral bodies. 7. Scoliosis and degenerative changes of the thoracic spine. 8. Cardiomegaly and coronary artery calcification. Chest X-Ray 07/22/18 00:00 CONCLUSION: Stable right lung mass and left basilar consolidation since July 19. No new infiltrate seen. Pacer leads unchanged. Discharge Plan - Discharge Disposition Patient Disposition: W/Home Health Service - Discharge Condition Condition: Fair - Discharge Order Discharge Orders: Discharge Order (Routine); Ordered 07/25/18 Ordered By: Tatiana Martinez Orthopedic Clear for Discharge (Routine); Ordered 07/11/18 Ordered By: Lindsey Herrera - Physicians Team Primary Care Provider: UNKNOWN, Attending Provider: Sailaja Narayan Other Providers: Lindsey Herrera MD ; [facility],[place] ; Isaiah Aleman DO ; Sean Brantley MD ; Barb Barrett MD
[2018-07-25] MEDS ORDERED: Lidocaine 5% Patch T-DERMAL SCH (18:30)
[2018-07-26] MEDS: Budesonide-Formoterol 80/4.5 MCG 6.9 GM Inhaler INH SCH (08:46)
[2018-07-26] MEDS: Megestrol Acetate Liq 400 MG/10 ML UDC PO SCH (08:46)
[2018-07-26] MEDS: Enoxaparin Inj 40 MG/0.4 ML Syringe SQ SCH (08:46)
[2018-07-26] MEDS: Nystatin Liq 500,000 UNIT/5 ML UDC SWISH-SWAL SCH ×2 (08:46→13:00)
[2018-07-26] MEDS: Senna/Docusate Sodium 8.6/50 MG Tablet PO SCH (08:46)
--- NOTE | 2018-07-26 12:41 | P.PN ---
Subjective Interval history: Follow-up visit for left hip fracture and poor p.o. intake. Patient seen and examined resting in bed comfortably in no acute distress. Patient denies any pain or discomfort at the moment. Nursing staff does not report any acute events overnight or this morning, patient to be discharged today to the care of her . Case management has provided with a list of home health agencies if he should need help caring for patient at home. Physical Exam Vital signs: Vital Signs 07/25/18 16:29 07/25/18 20:00 07/25/18 23:18 Temperature 97.8 F 98.9 F Pulse Rate 85 84 85 Respiratory Rate 18 16 16 Blood Pressure 167/74 H 135/69 Pulse Oximetry 98 94 L 07/26/18 00:00 07/26/18 03:55 07/26/18 04:01 Temperature 98.9 F Pulse Rate 84 83 84 Respiratory Rate 16 Blood Pressure 100/63 Pulse Oximetry 95 07/26/18 08:00 Temperature 97.4 F L Pulse Rate 85 Respiratory Rate 14 Blood Pressure 156/72 H Pulse Oximetry 96 Intake & Output 07/25/18 07/26/18 07/26/18 18:59 06:59 18:59 Intake Total 500 / 500 480 / 480 Balance 500 / 500 480 / 480 Weight 53.7 kg Intake: Oral 500 / 500 480 / 480 Other: # Voids 2 3 Date of Last Bowel Movement 07/26/18 # Bowel Movements 1 Narrative: GENERAL: Thin elderly and frail appearing female,in , no acute distress SKIN: Warm and dry. Left hip surgical incisions well approximated open to air. HEAD: Normocephalic, atraumatic EYES: No scleral icterus. No injection or drainage. NECK: Supple, trachea midline. CARDIOVASCULAR: Regular rate and rhythm without murmurs, gallops, or rubs. RESPIRATORY: Breath sounds decreased bilaterally. No accessory muscle use. GASTROINTESTINAL: Abdomen soft, non-tender, nondistended. Positive bowel sounds. MUSCULOSKELETAL: No cyanosis Neuro: Awake, confused , moving all extremities, speech is clear. - Urinary Catheter Management Indwelling Urethral Catheter Cath placed during this visit: yes, but has since been removed by the nurse Reason for continuing: Decision to DC catheter Insertion date: 07/08/18 Insertion time: 15:58 Removal date: 07/11/18 Removal time: 06:30 Female External Cath placed during this visit: no Results - Labs CBC & Chem 7: 07/24/18 04:14 07/25/18 05:20 Microbiology 07/21/18 11:06 Blood - Peripheral Aerobic Blood Culture - Final No growth in 5 days 07/21/18 11:06 Blood - Peripheral Anaerobic Blood Culture - Final No growth in 5 days 07/21/18 11:12 Blood - Peripheral Aerobic Blood Culture - Final No growth in 5 days 07/21/18 11:12 Blood - Peripheral Anaerobic Blood Culture - Final No growth in 5 days - Procedures 07/09/18- Intramedullary nail left subtrochanteric femur fracture by Dr. Herrera Assessment and Plan - Plan Protein Calorie Malnutrition with Poor Oral Intake: suspect multifactorial with dementia, recent hip fracture, infection -speech therapy following -dietitian consulted for calorie count, completed 07/17/18 and shows avg daily intake ~ 400 kcals and 15 gms protein. This meets 27% of the low end of her nutritional needs. -PEG tube and Dobbhoff placement previously discussed with who is reluctant to initiating either one at this moment. -continue Megace while at home. Pneumonia aspiration?, suspected -CXR 07/19/18 shows right upper lobe and left base consolidation and small left pleural effusion -afebrile overnight -supplemental O2 PRN, duoneb scheduled -pulmonary consulted and following, we appreciate their input -BCX w/ NGTD, lactic acid 1.5 07/21/18 -Patient to complete oral doxycycline course as recommended by pulmonary services. Hypokalemia: K 3.2 -Recheck potassium level stable Left femur fracture s/p mechanical fall at home -x-rays reviewed, consistent with comminuted left intertrochanteric hip fracture. Tib-fib x-ray is normal and pelvis intact. -orthopedics consulted S/P Intramedullary nail left subtrochanteric femur fracture, Dr. Herrera 07/09/18 -Follow up with Dr. Herrera in 2 weeks, keeley removed, surgical incision well approximated. -Tylenol for pain. Avoid narcotics -PT following, case management has attempted placement to rehab however no accepting facilities. Afib with RVR: patient with hx of ablation and pacemaker, not on any rate controlling medications at home - reviewed 07/23/18, stable -per pacer needs to be checked in Nov -[facility] performed pacer check on 07/11, unremarkable, paced rhythm at 80bpm -monitor on telemetry -s/p Halicat on 07/12, given IV Cardizem 10mg x2, transferred to [facility], now back in normal sinus paced rhythm -Cardiology consulted, discussed with Dr. Aleman, no further intervention. Not a candidate for a/c due to multiple falls. -continue to monitor, has remained in sinus paced rhythm Hypoxia: acute, patient with episodes of hypoxia as low as 87%. Suspect secondary to pneumonia and lung mass - reviewed 07/23/18, resolved -D-dimer elevated at 4.76, chest CTA showed mass and pneumonia, no PE, see below -pulmonology consulted, started on duonebs q6h, Symbicort bid -No longer requiring oxygen at discharge Sepsis: acute, suspect secondary to UTI and HCAP - reviewed 07/21/18, resolved -UA remarkable for UTI, however, urine culture with mixed uzma -Blood cultures with NGTD -Repeat CXR 07/12 shows worsening consolidation -Chest CTA 07/13 showed perihilar mass and consolidation of LLL consistent with pneumonia -Changed antibiotics to IV Zosyn and IV Vanco with pharmacy consult, these were d/c'd 07/17/18 -pulmonology following, recommended continuing antibiotics for 5 days to complete 07/28. -Discussed with , prescription for Symbicort sent to [facility] pharmacy, call placed to with message left on answering machine regarding electronically sent Symbicort prescription as well as need to follow- up with pulmonary services in 2 weeks. Perihilar Mass: concern for bronchogenic carcinoma - reviewed 07/21/18, unchanged -Chest CTA 07/13 showed Right perihilar mass measuring 3.8 x 4.6 x 3.1 cm is suspicious for bronchogenic carcinoma until proven otherwise -Consulted pulmonology and palliative care - has opted not to proceed with biopsy at this time Lewy body dementia with failure to thrive, malnutrition - reviewed 07/23/18 -Continue with vitamin B12 1000mcg bid, Namenda 2.5 twice daily -Consulted palliative care for goals of treatment, per goals remain aggressive at this time Acute Normocytic Anemia - reviewed 07/22/18, stable -given 1u pRBC transfusion during stay -stool hemoccult negative -iron studies consistent with chronic anemia Vitamin D Deficiency: -give ergocalciferol 50,000u q7d DVT prophylaxisLovenox Discussed Condition With: Patient, RN and Discharge Planning: DC today
--- NOTE | 2018-07-26 14:24 | P.PN ---
Subjective Interval history: She is better. Will go home with Home rehab. Off O2. Physical Exam Vital signs: Vital Signs 07/25/18 16:29 07/25/18 20:00 07/25/18 23:18 Temperature 97.8 F 98.9 F Pulse Rate 85 84 85 Respiratory Rate 18 16 16 Blood Pressure 167/74 H 135/69 Pulse Oximetry 98 94 L 07/26/18 00:00 07/26/18 03:55 07/26/18 04:01 Temperature 98.9 F Pulse Rate 84 83 84 Respiratory Rate 16 Blood Pressure 100/63 Pulse Oximetry 95 07/26/18 08:00 07/26/18 12:00 Temperature 97.4 F L 98.2 F Pulse Rate 85 87 Respiratory Rate 14 14 Blood Pressure 156/72 H 162/74 H Pulse Oximetry 96 96 Intake & Output 07/25/18 07/26/18 07/26/18 18:59 06:59 18:59 Intake Total 500 / 500 480 / 480 Balance 500 / 500 480 / 480 Weight 53.7 kg Intake: Oral 500 / 500 480 / 480 Other: # Voids 2 3 Date of Last Bowel Movement 07/26/18 # Bowel Movements 1 Narrative: GENERAL: Thin elderly and frail appearing female,in , no acute distress SKIN: Warm and dry. Left hip and lower leg wound dressed. HEAD: Normocephalic, atraumatic EYES: No scleral icterus. No injection or drainage. NECK: Supple, trachea midline. CARDIOVASCULAR: Regular rate and rhythm without murmurs, gallops, or rubs. RESPIRATORY: Breath sounds decreased bilaterally. No accessory muscle use. GASTROINTESTINAL: Abdomen soft, non-tender, nondistended. Positive bowel sounds. MUSCULOSKELETAL: No cyanosis Neuro: Awake confused , moving all extremities, speech is clear. - Urinary Catheter Management Indwelling Urethral Catheter Cath placed during this visit: yes, but has since been removed by the nurse Reason for continuing: Decision to DC catheter Insertion date: 07/08/18 Insertion time: 15:58 Removal date: 07/11/18 Removal time: 06:30 Female External Cath placed during this visit: no Results - Labs CBC & Chem 7: 07/24/18 04:14 07/25/18 05:20 Microbiology 07/21/18 11:06 Blood - Peripheral Aerobic Blood Culture - Final No growth in 5 days 07/21/18 11:06 Blood - Peripheral Anaerobic Blood Culture - Final No growth in 5 days 07/21/18 11:12 Blood - Peripheral Aerobic Blood Culture - Final No growth in 5 days 07/21/18 11:12 Blood - Peripheral Anaerobic Blood Culture - Final No growth in 5 days - Procedures 07/09/18- Intramedullary nail left subtrochanteric femur fracture by Dr. Herrera Assessment and Plan - Assessment (1) COPD (chronic obstructive pulmonary disease) Code(s): J44.9 - Chronic obstructive pulmonary disease, unspecified Status: Acute (2) Mass of left lung Code(s): R91.8 - Other nonspecific abnormal finding of lung field Status: Acute (3) Closed fracture of left hip Code(s): S72.002A - Fracture of unspecified part of neck of left femur, initial encounter for closed fracture Status: Acute (4) Pain Code(s): R52 - Pain, unspecified Status: Acute (5) History of hysterectomy Code(s): Z90.710 - Acquired absence of both cervix and uterus Status: Acute (6) Urinary tract infection Code(s): N39.0 - Urinary tract infection, site not specified Status: Acute (7) Lewy body dementia Code(s): G31.83 - Dementia with Lewy bodies; F02.80 - Dementia in other diseases classified elsewhere without behavioral disturbance Status: Acute (8) Atrial fibrillation with RVR Code(s): I48.91 - Unspecified atrial fibrillation Status: Acute (9) Sepsis Code(s): A41.9 - Sepsis, unspecified organism Status: Acute (10) Protein calorie malnutrition Code(s): E46 - Unspecified protein-calorie malnutrition Status: Acute (11) Pneumonia Code(s): J18.9 - Pneumonia, unspecified organism Status: Acute - Plan 1. D/C O2 2. D/C Duoneb nebs 3. Cont Symbicort 160/4.5 mcg , 1 puff bid 4. Cont anticoagulants 5. Home today 6. PT evaluation for activity 7. Diet soft with aspiration precautions 8. Will see as OP in 2 weeks (3) Closed fracture of left hip Qualifiers: Encounter type: initial encounter Qualified Code(s): S72.002A - Fracture of unspecified part of neck of left femur, initial encounter for closed fracture
--- NOTE | 2018-07-26 16:47 | P.PNPAL ---
Reason for Visit Reason for visit: a. To assist with evaluation and management of symptoms including: Pain, decreased oral intake, physical deconditioning b. To assist medical decision maker(s) with: better understanding of current medical conditions; weighing benefits/burdens of medical treatment options; making medical treatment decisions. Subjective Subjective/Interval History: Follow up visit for symptom management and clarification of medical treatment goals. Patient seen and examined in her room. She presents upright in bed with her at bedside. Patient is pleasantly confused. She responds to some questions with brief 1-2 word answers; speech is often nonsensical. Patient's states the patient ate a good breakfast and has been drinking fluids. He states he has been caring for his since she got sick, and he can continue to do so by himself. He will consider hiring a private caregiver if he needs to but states he recieves a great deal of support from his neighbors. Case management assisting/arranging transportation home. Advance Directives Living Will: Never completed Health Care Surrogate: Never completed Durable Power of Bioinformatician: Never completed Health Care Surrogate Name and Number: HCP-Spouse- Eugene Wilhelm [phone] Objective Vital Signs: Vital Signs 07/25/18 20:00 07/25/18 23:18 07/26/18 00:00 Temperature 98.9 F Pulse Rate 84 85 84 Respiratory Rate 16 16 Blood Pressure 135/69 Pulse Oximetry 94 L 07/26/18 03:55 07/26/18 04:01 07/26/18 08:00 Temperature 98.9 F 97.4 F L Pulse Rate 83 84 85 Respiratory Rate 16 14 Blood Pressure 100/63 156/72 H Pulse Oximetry 95 96 07/26/18 12:00 Temperature 98.2 F Pulse Rate 87 Respiratory Rate 14 Blood Pressure 162/74 H Pulse Oximetry 96 Intake & Output 07/25/18 07/26/18 07/26/18 18:59 06:59 18:59 Intake Total 500 / 500 480 / 480 Balance 500 / 500 480 / 480 Weight 53.7 kg Intake: Oral 500 / 500 480 / 480 Other: # Voids 2 3 Date of Last Bowel Movement 07/26/18 # Bowel Movements 1 Physical Exam: CONSTITUTIONAL/GENERAL: This is a frail, elderly female patient, in no apparent distress. TUBES/LINES/DRAINS: SKIN: No jaundice, rashes, or lesions. Ecchymoses on upper extremities. No wounds seen anteriorly. Normothermic. HEAD: Atraumatic. Normocephalic. EYES: PERRLA. No scleral icterus. No injection or drainage. Fundi not examined. ENT: Hearing grossly normal. Nose without bleeding or purulent drainage. Oral mucosa moist and pink NECK: Trachea midline. Supple, nontender. CARDIOVASCULAR: Irregular rate and rhythm. No JVD. Pacemaker to Right chest wall. Peripheral pulses symmetric. RESPIRATORY/CHEST: Symmetric, unlabored respirations. No accessory muscle use. GASTROINTESTINAL: Abdomen soft, non-tender, nondistended. No guarding. Bowel sounds present. GENITOURINARY: Without palpable bladder distension. MUSCULOSKELETAL: Extremities without clubbing or cyanosis. No mottling or clubbing. LYMPHATICS: No palpable cervical or supraclavicular adenopathy. NEUROLOGICAL: Awake and alert. Pleasantly confused. Speech is often garbled/ nonsensical. Occasionally responds to simple questions with brief answers. PSYCHIATRIC: No obvious anxiety/depression. No apparent hallucinations or other psychotic thought process. Diagnostic Tests Laboratory: Laboratory Results - last 72 hr 07/24/18 07/24/18 07/25/18 04:14 04:14 05:20 WBC 5.4 RBC 3.04 L Hgb 8.9 L Hct 26.4 L MCV 87.1 MCH 29.4 MCHC 33.8 RDW 15.2 Plt Count 526 H MPV 8.2 Neut % (Auto) 57.0 Lymph % (Auto) 23.1 [place] % (Auto) 14.6 H Eos % (Auto) 1.8 Baso % (Auto) 3.5 H Neut # (Auto) 3.1 Lymph # (Auto) 1.3 [place] # (Auto) 0.8 Eos # (Auto) 0.1 Baso # (Auto) 0.2 WBC Differential . Differential Comment Auto diff final Sodium 138 Potassium 3.2 L 3.6 Chloride 104 Carbon Dioxide 26.4 Anion Gap 8 BUN 8 Creatinine 0.63 Estimated GFR Greater than 89 Random Glucose 89 Calcium 8.0 L Result Diagrams: 07/24/18 04:14 07/25/18 05:20 Microbiology: Microbiology 07/21/18 11:06 Aerobic Blood Culture - Final Blood - Peripheral No growth in 5 days Anaerobic Blood Culture - Final No growth in 5 days 07/21/18 11:12 Aerobic Blood Culture - Final Blood - Peripheral No growth in 5 days Anaerobic Blood Culture - Final No growth in 5 days Imaging: Femur X-Ray 07/08/18 12:45 CONCLUSION: Comminuted and mildly displaced and mildly angulated intertrochanteric and proximal shaft fracture of the left femur. Tibia/Fibula X-Ray 07/08/18 12:45 CONCLUSION: Left tibia and fibula appear intact. Pelvis X-Ray 07/08/18 12:46 CONCLUSION: No evidence of pelvic fracture. Hip X-Ray 07/09/18 00:00 CONCLUSION: Fixation left intertrochanteric fracture. Chest CTA 07/13/18 00:00 CONCLUSION: 1. No evidence of pulmonary embolism. 2. Right perihilar mass measuring 3.8 x 4.6 x 3.1 cm is suspicious for bronchogenic carcinoma until proven otherwise. 3. Patchy opacity is noted within the right upper lobe and extends to the pleura. 4. Alveolar consolidation is noted involving the left lower lobe consistent with pneumonia and/or atelectasis. 5. Small left pleural effusion. 6. Multiple compression deformities involving the thoracic spine with underlying diffuse sclerosis involving the severely compressed vertebral bodies. 7. Scoliosis and degenerative changes of the thoracic spine. 8. Cardiomegaly and coronary artery calcification. Chest X-Ray 07/22/18 00:00 CONCLUSION: Stable right lung mass and left basilar consolidation since July 19. No new infiltrate seen. Pacer leads unchanged. Procedures: 07/08/18-intramedullary nailing of left subtrochanteric femur fracture. Assessment and Plan - Disease Oriented Problem List (1) Sepsis Comment: = Suspect secondary to UTI and HCAP patient met sepsis criteria with WBC 13K, tachycardia, fever 100.5 = UA remarkable for UTI however urine culture with mixed uzma = Blood cultures with NGTD = Repeat CXR 07/12/18 shows worsening consolidation = Chest CTA 07/13/18 showed perihilar mass and consolidation of LLL consistent with pneumonia = Changed antibiotics to IV Zosyn and IV Vanco, pharmacy consulted (2) Atrial fibrillation with RVR Comment: = [facility] performed pacer check on 07/11/18; unremarkable. (3) Closed fracture of left hip Comment: = X-rays reviewed, consistent with comminuted left intertrochanteric hip fracture. Tib-fib x-ray is normal and pelvis intact. = S/P Intramedullary nail left subtrochanteric femur fracture, Dr. Herrera = Tylenol for pain. Avoid narcotics = PT recommends SNF placement for rehab (4) Lewy body dementia Comment: = Continue with vitamin B12 1000mcg BID, Namenda 2.5 BID (5) Protein calorie malnutrition Comment: = Calorie count completed 07/17/2018. = Patient is at high nutritional risk secondary to poor nutritional intake and a BMI of 19.3. = Patient's average daily intake is only 400 kcals and 15 g protein which meets approximately 27% of her nutritional needs. = is refusing PEG tube placement - Symptom Scale (1) Pain Comment: = Recent femur fracture and surgical intervention. . (2) Decreased oral intake Comment: = Calorie count completed 07/17/18 = Spouse amenable to PEG tube placement; IR consulted. = May continue oral intake for pleasure (3) Physical deconditioning Comment: = Physical therapy recommending SNF placement for rehab Pertinent Non-Medical Issues: Psychosocial: Patient was born and raised in [place]. She moved to [place] 15 -17 years ago. Patient was twice and has been to her current for the past 58 years. Patient has 2 adult children, daughter Leonarda Bill- (Public Figure-Politician) and a son Angelica Rhoades. 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 Spiritual: Patient is Roman Catholic-declined apparatus repair mechanic to visit Legal: Never completed advanced directives. Ethical issues impacting care: None identified at this time Important Contacts: Health care proxy- Spouse-Eugene Wilhelm [phone] Daughter- Leonarda Bill Son- Angelica Rhoades Prognosis: Mrs. Wilhelm is a 77-year-old female with a medical history of severe Lewy body dementia, atrial fibrillation, breast cancer, and chronic obstructive pulmonary disease. Patient was brought into the emergency room on 07/08/18 for evaluation and treatment after she sustained a fall at home. Patient underwent intramedullary nailing of left subtrochanteric femur fracture.Clinical course complicated with sepsis, shortness of breath, and decreased oral intake. Given ongoing multiple comorbidities, patient remains at high risk for further complications, deterioration and decline. . Code Status: Full Code Plan: PLAN: * Legal decision maker: Patient is oriented to self only with confusion. She has Lewy body dementia. Patient is not able to participate in medical decision making and will most likely not regain that capacity. According to [place] statute, her spouse Eugene Wilhelm will serve as a healthcare proxy medical decision maker. * Goals remain aggressive. e states he has been caring for his since she got sick, and he can continue to do so by himself. He will consider hiring a private caregiver if he needs to but states he recieves a great deal of support from his neighbors. * CODE STATUS: Full code SYMPTOMS: * Pain: Patient came in after a fall which she sustained a left femur fracture. Patient is status post intramedullary nailing of left subtrochanteric femur fracture. Currently not showing signs of pain. Patient`s spouse states that patient gets very agitated when given narcotics and does not want her to receive narcotics. He also believes that when patient receives acetaminophen " it causes A. fib with RVR". Continue to monitor pain and educating patient spouse on nonverbal signs of pain. * Decreased oral intake: Patient has had decreased oral intake. Calorie consult completed 07/17/18. Patient's spouse refusing PEG. He states patient's nutritional intake has improved. * Physical deconditioning: Progressive. Patient has severe lower body dementia and has had multiple falls. Recently fell and had a left femur fracture. Physical therapy consulted, recommending SNF placement for rehab. Patient's participation most likely limited due to cognition problems. Palliative care will continue to follow the patient during hospital course as condition evolves, to assist patient/decision-maker with understanding of their medical conditions, weighing benefits/burdens of treatment options, for clarification of goals of treatment. Additionally will assist with any symptoms of palliative concern Attestation Attestation: To help prompt me to consider important information that might be impacting today's encounter and assessment, information from prior notes written by myself or my colleagues may have been "brought forward" into today's note. My signature on this note, however, is an attestation that I personally performed the exam, history, and/or decision-making noted today, and, unless otherwise indicated, the interactions with patient, family, and staff as well as the review of records all occurred today. I also attest that the listed assessment and stated plan reflect my best clinical judgment today based on the combination of historical information, prior notes, and today's exam/ interactions. When time spent is documented, it refers only to time spent today by the signer, or if indicated, combined time spent today by collaborating physician/nurse practitioner.
== END 2018-07-26 14:14 | disposition home health service (06) ==
LOC: NEPD 10:51 → NEDA 15:01 → N06 16:25 → N03 07-12 12:28 → N06 07-12 18:31
PROVIDERS: ADMIT Hospitalist; ATTEND Hospitalist